=== PATIENT | female | born 1955 | race Caucasian/White ===

== ENCOUNTER → 2018-04-06 09:20 | Outpatient (CLI) | payer OTHER, SELFPAY ==
[2018-04-06 10:31] LABS: Add Manual Diff / Slide Review NO; Basophils Percent Auto 1.2 % (0-2); Eosinophils Percent Auto 2.7 % (2-4); Hematocrit 41.2 % (36-46); Hemoglobin 13.8 g/dL (12.0-16.0); Lymphocytes Percent Auto 34.4 % (25-40); Mean Corpuscular HGB Conc 33.5 % (30-36); Mean Corpuscular Hemoglobin 29.9 PG (26-34); Mean Corpuscular Volume 89.4 fL (80-100); Monocytes Percent Auto 11.7 % (3-14); Neutrophils Absolute Auto 1900 /uL (3000-5900); Platelet Count 189 X10^3/uL (150-400); Red Cell Distribution Width 14.3 % (11.6-14.8); White Blood Cell Count 3.8 X10^3/uL (4.5-11.0)
[2018-04-06 10:45] LABS: Hemoglobin A1C% w Est Avg Glu 5.7 % (4.0-6.0)
[2018-04-06 11:04] LABS: Alanine Aminotransferase 31 IU/L (9-52); Albumin Globulin Ratio 1.5 (1.0-2.8); Alkaline Phosphatase 63 U/L (38-126); Aspartate Aminotransferase 22 IU/L (14-36); BUN Creatinine Ratio 23.3 (6-22); Bilirubin Total 0.4 mg/dL (0.2-1.3); Blood Urea Nitrogen 14 mg/dL (7-17); Calcium 9.2 mg/dL (8.4-10.2); Carbon Dioxide 29 mmol/L (22-32); Chloride 103 mmol/L (98-107); Cholesterol 185 mg/dL (140-199); Estimated Glomerular Filt Rate > 60.0 mL/min (>60); Globulin 2.7 g/dL (1.7-4.1); Glucose 88 mg/dL (80-110); HDL Cholesterol 49 mg/dL (40-60); HEMOLYSIS < 15 (0-50); LDL Cholesterol Calculated 114 mg/dL (<100); Potassium 4.3 mmol/L (3.4-5.1); Sodium 141 mmol/L (137-145); Total Protein 6.7 g/dL (6.3-8.2); Triglycerides 109 mg/dL (35-150)
[2018-04-06 11:14] LABS: C-Reactive Protein Quant < 0.5 mg/dL (<1.0)
[2018-04-06 11:19] LABS: Free T3, Triiodothyronine Free 3.21 pg/mL (2.77-5.27); Free T4, Direct Thyroxine 1.47 ng/dL (0.78-2.19)
[2018-04-06 11:33] LABS: Thyroid Stimulating Hormone 2.44 uIU/mL (0.47-4.68)
== END ==
PROVIDERS: PCP Family Medicine; Visit Provider Family Medicine
DX: E78.00 Pure hypercholesterolemia, unspecified (principal); E03.9 Hypothyroidism, unspecified; E16.2 Hypoglycemia, unspecified; D72.819 Decreased white blood cell count, unspecified; M25.50 Pain in unspecified joint
CPT/HCPCS: 36415; 80053; 80061; 83036; 84439; 84443; 84481; 85025; 86140

== ENCOUNTER → 2018-04-13 11:36 | Outpatient (CLI) | payer OTHER, SELFPAY | PROVIDERS: PCP Family Medicine; Visit Provider Specialist | DX: R30.0 Dysuria (principal) | CPT/HCPCS: 87077; 87086; 87186 ==

== ENCOUNTER → 2018-04-17 10:19 | Outpatient (CLI) | payer OTHER, SELFPAY ==
--- NOTE | 2018-04-17 10:22 | DI.US.S_ITS ---
ULTRASOUND OF LEFT BREAST: 04/17/2018 CLINICAL: Palpable left breast lump and focal pain. one area of palpable multiple areas of pain. Comparison is made to exams dated: 04/17/2018 mammogram, 12/10/2015 ultrasound, and 12/10/2015 mammogram - . Ultrasound of the left breast was performed on the area of interest. Nino scale images of the real-time examination were reviewed. IMPRESSION: NEGATIVE There is no sonographic evidence of malignancy. There is no mammographic or sonographic abnormality seen in the left breast to correspond with the pain, however, clinical followup is recommended. A 1 year screening mammogram is recommended. This exam was interpreted at Station ID: [id number]. Electronically Signed By: Dianna fox/edd:04/17/2018 16:50:35 letter sent: Clinical Evaluation Ultrasound BI-RADS: 1 Negative
--- NOTE | 2018-04-17 10:22 | DI.MG.S_ITS ---
BILATERAL DIGITAL DIAGNOSTIC MAMMOGRAM 3D/2D: 04/17/2018 CLINICAL: Left breast pain. Comparison is made to exams dated: 12/10/2015 mammogram, 11/07/2014 mammogram, and 08/21/2013 mammogram - [facility]. The tissue of both breasts is extremely dense, which lowers the sensitivity of mammography. No significant masses, calcifications, or other findings are seen in either breast. There has been no significant interval change. IMPRESSION: INCOMPLETE: NEEDS ADDITIONAL IMAGING EVALUATION There is no mammographic abnormality seen in the left breast to correspond with the pain, however, ultrasound is recommended. This exam was interpreted at Station ID: [id number]. NOTE: For mammograms, a report in lay terms will be sent to the patient. Approximately 15% of breast malignancies will not be visualized mammographically. In the management of a palpable breast mass, a negative mammogram must not discourage biopsy of a clinically suspicious lesion. Electronically Signed By: Dianna fox/edd:04/17/2018 11:09:33 letter sent: Additional Imaging Needed ACR BI-RADS Category 0: Incomplete 3340F
== END ==
PROVIDERS: PCP Family Medicine; Visit Provider Specialist
DX: R92.8 Other abnormal and inconclusive findings on diagnostic imaging of breast (principal); N64.4 Mastodynia; N63.20 Unspecified lump in the left breast, unspecified quadrant
CPT/HCPCS: 76642; 77066; G0279

== ENCOUNTER → 2018-08-14 10:15 | Outpatient (CLI) | payer OTHER, SELFPAY ==
[2018-08-14 11:25] LABS: Magnesium 2.2 mg/dL (1.6-2.3)
[2018-08-14 11:57] LABS: Thyroid Stimulating Hormone 2.48 uIU/mL (0.47-4.68)
== END ==
PROVIDERS: Family Provider Family Medicine; PCP Family Medicine; Referring Provider Specialist; Visit Provider Internal Medicine Cardiovascular Disease
DX: R00.2 Palpitations (principal); I49.3 Ventricular premature depolarization; E03.9 Hypothyroidism, unspecified
CPT/HCPCS: 36415; 83735; 84443

== ENCOUNTER 2018-08-25 08:35 | Day surgery (SDC) | payer OTHER, SELFPAY ==
--- NOTE | 2018-08-25 | PATH_ITS ---
[facility] Accession Number: [id number] . 01 Material submitted: . POLYP AT 40CM . 02 Diagnosis: Colon Polyp at 40 cm: Colonic mucosa with no diagnostic abnormality, consistent with polypoid redundancy. Negative for serrated lesion, dysplasia or malignancy. Additional step sections examined. MRV/08/30/2018 . 02 Electronically signed: . Issac Howell MD, PhD, Pathologist NPI- [id number] . 01 Gross description: . Received one formalin-filled container labeled with the patient's name and labeled polyp at 40 cm. The specimen consists of two 0.1-0.3 cm portions of tissue, entirely submitted in one cassette. ([id number]) /FRR . 02 Pathologist provided ICD-10: K63.5 . 02 CPT . 305668 Performed at: 01 [facility] [address], [place], [place] [id number] MD Mariano Garcia MD Phone: [phone] Performed at: [address] [facility] [address] [place], [place] [id number] MD Yasmine Velarde MD Phone: [phone]
[2018-08-25] MEDS: SODIUM CHLORIDE 0.9% 1,000 ML 200 ML IV (08:49)
[2018-08-25 08:53] VITALS: BP 110/75; PULSE 73; RESP 15; TEMP 36; O2SAT 98; BMI 35.5
--- NOTE | 2018-08-25 10:20 | P.HP_ITS ---
History of Present Illness Date Patient Seen: 08/25/18 Time Patient Seen: 10:10 Chief complaint: [id number] COLONOSCOPY Narrative: Patient is a woman who had a colonoscopy about 4 years ago. Her aunt and father both had colon cancer. She has had polyps removed and is here for follow-up exam at the recommendation of her doctor. 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) Scarring of conjunctiva of left eye (Chronic 2013) Fibrocystic breast (Chronic 1999) Colon polyps (Resolved 2013) Hypothyroidism (Chronic 1999) Restless leg syndrome (Chronic 2012) Sleep apnea (Chronic 2012) Shoulder pain, left (Resolved 2015) Flat feet (Chronic 1956) Herpes simplex (Chronic 1997) Pure hypercholesterolemia (Chronic 11/23/16) Foot pain (Chronic 1956) Hematuria (Chronic) PVC (premature ventricular contraction) (Chronic 2013) Chicken pox (Resolved 1966) Chickenpox (Resolved 1966) History of multiple miscarriages (Resolved) Surgical History Status post endovenous radiofrequency ablation (RFA) of saphenous vein ( Resolved ~2015) Anesthesia (Resolved) History of orthopedic surgery (Resolved 1983) Family & Social History Family History: Reviewed 08/25/18 by Kee Pandey MD Social History: household members family lives independently Yes Tobacco & Substance use: Smoking Status Never smoker alcohol intake current Meds Home Medications Medication Instructions Recorded Confirmed Type CHOLECALCIFEROL (VITAMIN D3) 1,000 iu PO Q DAY #0 12/08/11 04/13/18 History (VITAMIN D3) MULTIVITAMIN 1 cap PO Q DAY #0 12/08/11 04/13/18 History [COQ 10] 100 mg #0 04/01/17 04/13/18 History hydrocodone 5 mg-acetaminophen 325 1 tab PO ONCE PRN #30 tab 02/16/18 04/13/18 Rx mg tablet nitrofurantoin 100 mg PO Q12H #10 cap 04/13/18 Rx monohydrate/macrocrystals 100 mg capsule levothyroxine 100 mcg tablet 100 mcg PO Q DAY #90 tab 06/16/18 Rx Allergies Allergy/AdvReac Type Severity Reaction Status Date / Time Sulfa (Sulfonamide Allergy Severe Hives Verified 08/25/18 08:41 Antibiotics) Penicillins [PENICILLINS] Allergy Unknown Verified 04/13/18 11:00 Review of Systems Review of Systems All systems reviewed & are unremarkable except as noted in HPI and below Exam Vital Signs (past 8 hours): - 08/25/18 08:53 Temperature 96.8 F L Pulse Rate 73 Respiratory Rate 15 Blood Pressure 110/75 Pulse Oximetry 98 Oxygen Delivery Method Room Air Narrative Exam Narrative: Co Operative no apparent distress. Lungs are clear to auscultation no rales or rhonchi heart regular rate and rhythm no murmur or gallop abdomen is protuberant soft nontender without mass. Alert and oriented x3. Assessment & Plan Plan: Assessment/Plan Narrative: Patient for a colonoscopy. I have discussed the procedure and the rationale with the patient including risks of bleeding, perforation which would necessitate a major operation, failure to find remove all lesions and the potential to tattoo. They appeared to understand and wished to proceed.
--- NOTE | 2018-08-25 10:22 | PM.PREOP ---
Pre-operative Note Interval Note Pre-op Check: Yes History & Physical exam performed today by Physician Changes: Yes H&P completed within 30 days and has changed as indicated here:: Patient is beta blocked. Drug was just started and she took it. ASA Class (for procedural sedation): II
--- NOTE | 2018-08-25 10:54 | PM.OP.ENDO ---
Operative Date/Time/Diagnoses Date of procedure: 08/25/18 Time of procedure: 10:54 Pre-op diagnosis: History of polyps and family history of colon cancer. Last exam 4 years ago. Post-op diagnosis: same (Polyp at 40 cm. Sigmoid diverticulosis. Internal hemorrhoids with scarring) Procedure & Clinicians Study performed: Colonoscopy with cold biopsy Same procedure as scheduled: Yes Indications: Screening Surgeon: Kee Pandey Procedure Notes SCOAP/Timeout: Perform Procedure in detail: The patient was placed in the left lateral decubitus position and underwent IV sedation directed by the surgeon consisting of fentanyl and Versed. Digital exam was unremarkable.. The scope was inserted and advanced through the rectum into the sigmoid, descending, transverse, and ascending colon. The patient was noted to have sigmoid diverticulosis. Pressure was applied and we made our way into the cecum. The cecum was reached identified by the ileocecal valve and the appendiceal opening. The scope was gradually brought out. A single Polyp was found at 40 cm from the anal verge. It was biopsied and appeared to be completely removed.. The scope ultimately was retroflexed in the rectum. The appearance was remarkable for scarring on internal hemorrhoids. There was no active disease.. The scope was removed and the patient tolerated the procedure well Scope withdrawal time: 10 min Sedation minutes: 30 Findings: diverticulosis (Sigmoid), internal hemorrhoids and polyp (40 cm from the anal verge) Specimen(s): other (Polyp) Complications: none Recommendations: Colonscopy in 5 years Follow up: as needed Disposition: PACU
[2018-08-25] MEDS: fentaNYL 250 MCG/5 ML INJ IV (10:55)
[2018-08-25] MEDS: MIDAZOLAM 5 MG/5 ML VIAL IV (10:55)
[2018-08-25 10:56] VITALS: BP 110/69; PULSE 72; RESP 15; TEMP 36.6; O2SAT 97
[2018-08-25 11:01] VITALS: BP 105/70; PULSE 71; RESP 15; O2SAT 96
[2018-08-25 11:06] VITALS: BP 129/78; PULSE 73; RESP 15; O2SAT 96
[2018-08-25 11:17] VITALS: BP 119/76; PULSE 71; RESP 15; TEMP 36.4; O2SAT 99
== END 2018-08-25 11:37 | disposition home or self-care (01) ==
PROVIDERS: Family Provider Family Medicine; PCP Family Medicine; Visit Provider Specialist
PROC: 0DJD8ZZ Inspection of Lower Intestinal Tract, Via Natural or Artificial Opening Endoscopic (ICD-10-PCS; CPT 45378; principal; 2018-08-25 09:45)
DX: Z86.010 Personal history of colon polyps (principal); K57.30 Diverticulosis of large intestine without perforation or abscess without bleeding; Z80.0 Family history of malignant neoplasm of digestive organs; K64.8 Other hemorrhoids; E03.9 Hypothyroidism, unspecified; G47.33 Obstructive sleep apnea (adult) (pediatric); E78.00 Pure hypercholesterolemia, unspecified; K63.5 Polyp of colon
CPT/HCPCS: 45380; 99152; 99153; J2250; J3010

== ENCOUNTER → 2018-08-28 12:44 | Outpatient (CLI) | payer OTHER, SELFPAY ==
--- NOTE | 2018-08-28 12:46 | DI.MRI.S_ITS ---
PROCEDURE: MR LUMBAR SPINE WO CON INDICATIONS: LOW BACK PAIN W R LOWER EXTREMITY TECHNIQUE: Noncontrast sagittal T1 spin echo and T2 fast echo, sagittal STIR, axial T1 and T2 fast spin echo through the lumbar spine. In cases with scoliosis, additional coronal T2 fast spin echo may be performed. COMPARISON: , MR, L-SPINE WITHOUT CONTRAST, 12/05/2008, 17:49. , MR, MR CERVICAL SPINE WO CON, 08/28/2018, 13:53. FINDINGS: Image quality: Diagnostic, with note made of motion artifact. Alignment and Curvature: There is minimal retrolisthesis seen at the L5-S1 level. Bone Marrow: Marrow is of normal overall signal. No acute vertebral body compression fractures. Spinal Cord: Conus medullaris terminates at the L2 level. Visualized cord demonstrates normal signal and size. Paraspinous Soft Tissues: No paravertebral masses. T12-L1: Normal appearance. L1-L2: Normal appearance. L2-L3: Normal appearance. L3-L4: Mild loss of disc height is seen. Loss of disc signal is seen. Moderate generalized disc bulge is seen. No significant neural foraminal narrowing is seen. Mild to moderate central canal narrowing is seen. These degenerative findings have progressed compared to the prior study. L4-L5: Moderate loss of disc height is seen. Loss of disc signal is seen. Moderate disc osteophyte complex is seen, which is eccentric the right. Mild bilateral neural foraminal narrowing is seen. Mild to moderate central canal narrowing is seen. These imaging findings have progressed compared to the prior study. L5-S1: At least moderate loss of disc height is seen. Moderate disc bulge is seen, with a central/left disc extrusion, as on series 6 image 38 and on series 3 image 10. There is an associated annular fissure present, as on series 3 image 9. Mild to moderate facet hypertrophy is seen. Mild bilateral neural foraminal narrowing is seen. Moderate central canal narrowing is seen, with mass effect upon the regional nerve roots, particularly the transiting left S1 nerve roots. These degenerative changes have slightly progressed compared to 2009. IMPRESSION: Lower lumbar spine degenerative changes are seen, which are most prominent at the L5-S1 level. The degenerative changes have progressed compared to 2008. Dictated by: Nicolás Richardson M.D. on 08/28/2018 at 13:32 Approved by: Nicolás Richardson M.D. on 08/28/2018 at 13:38
--- NOTE | 2018-08-28 13:56 | DI.MRI.S_ITS ---
PROCEDURE: MR CERVICAL SPINE WO CON INDICATIONS: NECK PAIN W BILATERAL UPPER EXTREMITY PARESTHESIAS TECHNIQUE: Noncontrast sagittal T1 spin echo and T2 fast spin echo, sagittal STIR, foraminal oblique sagittal T2 fast spin echo, and axial gradient echo or T2 fast spin echo through the cervical spine. COMPARISON: None. FINDINGS: Image quality: Mild motion is present limiting areas of fine detail evaluation. Alignment and Curvature: There is normal bony alignment. There is trace anterolisthesis of C3 on C4, C4 on C5, trace retrolisthesis of C5 on C6. Bone Marrow: Marrow demonstrates normal overall signal. There is increased T1 and T2 signal at T5 most suggestive of a hemangioma. Spinal Cord: Visualized spinal cord has normal size and signal. No cerebellar tonsillar herniation. Paraspinous Soft Tissues: No paravertebral masses. Prevertebral soft tissues are normal in thickness. Discs: Mild to moderate desiccation is present throughout the cervical spine most notable at C5-6 and C6-7. C2-C3: Minimal disc bulge without spinal stenosis or foraminal narrowing. Motion is present at this level. C3-C4: Mild disc bulge with minimal canal narrowing. Mild bilateral foraminal narrowing with uncovertebral hypertrophy. Motion is present at this level. C4-C5: Mild disc bulge with small superimposed posterior central protrusion. There is minimal canal narrowing. Mild bilateral foraminal narrowing with uncovertebral hypertrophy. Motion is present at this level. C5-C6: Mild disc bulge with mild/moderate spinal stenosis. Moderate left and mild to moderate right foraminal narrowing with uncovertebral hypertrophy. Motion is present at this level. C6-C7: Mild disc bulge with mild spinal stenosis. No foraminal narrowing. Uncovertebral hypertrophy is present. Motion is present at this level. C7-T1: No gross disc bulge, spinal stenosis or foraminal narrowing. Motion is present at the swallow. IMPRESSION: 1. Mildly limited exam secondary to multiple levels of motion artifact. 2. Multilevel disc bulges. 3. Spinal stenosis is present most notable at C5-6 secondary to disc bulge. 4. Multiple foraminal narrowing most notable at C5-6 secondary to uncovertebral arthropathy. Dictated by: Connie Joseph M.D. on 08/28/2018 at 15:30 Approved by: Connie Joseph M.D. on 08/28/2018 at 15:35
== END ==
PROVIDERS: Family Provider Family Medicine; PCP Family Medicine; Visit Provider Family Medicine
DX: M54.2 Cervicalgia (principal); M54.5 Low back pain; G89.29 Other chronic pain; M79.601 Pain in right arm; M79.602 Pain in left arm; R20.2 Paresthesia of skin
CPT/HCPCS: 72141; 72148

== ENCOUNTER → 2018-08-31 15:00 | Outpatient (CLI) | payer OTHER, SELFPAY ==
--- NOTE | 2018-08-31 | DI.ECHO.S_ITS ---
[facility]---------+ [facility] +---------+ : : [address] : : : : [id number] : : : : Phone: [phone]+ Echocardiogram Report + + :Name: ANGEL CHILEL Study Date: 08/31/2018 Height: 67 in : :[facility] Weight: 227 lb : : Gender: Female BSA: 2.1 m2 : :: 1955 Age: 63 yrs BP: 112/70 mmHg: :Reason For Study: Arrhythmia, PVCs : :Ordering Physician: Dwayne : :Terrenceiwpayal Performed By: Sharmaine Preston : :Referring: Santhosh Prescott : + + Interpretation Summary The patient was in atrial fibrillation with heart rates between 109-137 bpm during the exam. The left ventricle is normal in size. The ejection fraction is estimated to be 50-55%. The right ventricle is grossly normal size. The right ventricular systolic function is normal. No significant valvular pathology seen. The ascending aorta is mildly enlarged. Procedure: A two-dimensional transthoracic echocardiogram with color flow and Doppler was performed. The study quality was technically adequate. Comparison is made with the echocardiogram of 01-23-14. The patient was in atrial fibrillation with heart rates between 109-137 bpm during the exam. Left Ventricle: The left ventricle is normal in size. There is normal left ventricular wall thickness. There is no thrombus. The ejection fraction is estimated to be 50-55%. There is basal inferior wall hypokinesis. There is basal inferoseptal wall hypokinesis. Compared to the prior exam, the left ventricular wall motion has not changed. Diastolic function could not be accurately assessed due to atrial fibrillation. Right Ventricle: The right ventricle is grossly normal size. The right ventricular systolic function is normal. Atria: The left atrial size is normal. Both atria have remained unchanged in size since the prior echo exam. Right atrial size is normal. The interatrial septum is intact with no evidence for an atrial septal defect. Mitral Valve: The mitral valve is normal in structure and function. There is no mitral regurgitation noted. Aortic Valve: The aortic valve opens well. The aortic valve is trileaflet. There is no aortic valve stenosis. No aortic regurgitation is present. Tricuspid Valve: The tricuspid valve is normal in structure and function. There is trace tricuspid regurgitation. The right ventricular systolic pressure is estimated to be at least 20 mmHg based on an estimated right atrial pressure of 3 mm Hg. Pulmonic Valve: The pulmonic valve is not well seen, but is grossly normal. There is trace pulmonic regurgitation. Great Vessels: The aortic root is normal size. The ascending aorta is mildly enlarged. The aortic arch is normal in size. Pericardium/ Pleura There is no pericardial effusion. There is no pleural effusion. MMode/2D Measurements & Calculations LVIDd: 3.6 cm Ao root diam: 3.3 cm LVIDs: 2.4 cm Aortic Jxn: 2.7 cm FS: 33.2 % asc Aorta Diam: 3.8 cm IVSd: 1.0 cm Ao Arch Diam (Prox Trans): 2.8 cm LVPWd: 0.92 cm LV ocasio. diameter/BSA (cm/m^2): 1.7 LV sys. diameter/BSA (cm/m^2): 1.1 LA dimension: 3.6 cm RA long axis: 4.7 cm LA A2 area: 20.0 cm2 RA area: 16.8 cm2 LA A4 area: 15.2 cm2 RA vol: 50.7 ml LA length (vol): 4.6 cm RA : 23.8 ml/m2 LA vol: 56.4 ml IVC diam: 1.4 cm LA vol index: 26.4 ml/m2 RVD1 (basal): 2.8 cm Doppler Measurements & Calculations Ao V2 max: 110.3 cm/sec Med Peak E' Matthew: 8.9 cm/sec Ao V2 mean: 77.8 cm/sec Lat Peak E' Matthew: 12.9 cm/sec Ao max P.9 mmHg MV P1/2t: 37.0 msec Ao mean P.7 mmHg Ao V2 VTI: 19.4 cm TR max matthew: 204.8 cm/sec MV V2 mean: 56.3 cm/sec TR max P.8 mmHg MV mean P.5 mmHg PA V2 max: 64.9 cm/sec MV V2 VTI: 11.9 cm PA V2 mean: 40.8 cm/sec PA mean P.79 mmHg PA Accel Time: 0.12 sec MV P1/2t max matthew: 88.6 cm/sec MVA(P1/2t): 5.9 cm2 Reading Physician:TONIO
== END ==
PROVIDERS: PCP Family Medicine; Visit Provider Internal Medicine Cardiovascular Disease
DX: I49.3 Ventricular premature depolarization (principal)
CPT/HCPCS: 93306

== ENCOUNTER → 2021-01-09 12:08 | Outpatient (CLI) | payer OTHER, MEDICAID, SELFPAY ==
--- NOTE | 2021-01-09 | DI.US.S_ITS ---
PROCEDURE: US THYROID INDICATIONS: NODULE TECHNIQUE: Real-time scanning was performed of the thyroid gland, with image documentation. COMPARISON: [facility], US, THYROID, 09/02/2017, 10:17. FINDINGS: Right: Thyroid lobe measures 3.8 x 2.2 x 1.8 cm, and is diffusely heterogeneous in echotexture. Left: Thyroid lobe measures 3.8 x 1.8 x 1.0 cm, and is diffusely heterogeneous in echotexture. Isthmus: 3.0 mm thick. Nodule number: 1 Location: Left mid Size: 0.8 x 0.4 x 0.5 cm. Composition: Predominantly solid Echogenicity: Hypoechoic Shape: wider than tall. Margins: Smooth Echogenic foci: None Total points: None 4 ACR TI-RADS category: Moderately suspicious IMPRESSION: 1. Subcentimeter moderately suspicious left thyroid nodule. Given the small size, no additional follow-up is warranted. 2. Previously visualized right thyroid nodule is no longer visible. ACR TI-RADS definitions and recommendations: TI-RADS 1 (benign): 0 points. FNA not needed. TI-RADS 2 (not suspicious): 2 points. FNA not needed. TI-RADS 3 (mildly suspicious): 3 points. * FNA if 2.5 cm or larger, follow up if 1.5 cm or larger (at 1, 3, and 5 years). TI-RADS 4 (moderately suspicious): 4-6 points. * FNA if 1.5 cm or larger, follow up if 1 cm or larger (at 1, 2, 3, and 5 years). TI-RADS 5 (highly suspicious): 7 points or more. * FNA if 1 cm or larger, follow up if 0.5 cm or larger (every year for 5 years). Dictated by: Tanner SWAIN Interpreted: Hayden Galindo MD on 01/09/2021 at 13:11 Transcribed by: GRANT on 01/09/2021 at 13:13 Approved by: Hayden Galindo M.D. on 01/09/2021 at 14:44
--- NOTE | 2021-01-09 | DI.US.S_ITS ---
PROCEDURE: US CAROTID DOPPLER BI INDICATIONS: STENOSIS TECHNIQUE: Color and pulse Doppler interrogation was performed of both carotid systems, with image documentation and velocity measurements. COMPARISON: None. FINDINGS: Stenosis calculations are based on SRU (Society of Radiologists in Ultrasound) criteria. Right side: Brachial blood pressure: 121/79 mm Hg. Common carotid artery peak systolic velocity: 63 cm/sec. Internal carotid artery peak systolic velocity: 73 cm/sec. Internal carotid artery end diastolic velocity: 19 cm/sec. External carotid artery peak systolic velocity: 64 cm/sec. ICA/CCA peak systolic ratio: 0.9 Nino scale imaging description: Mild scattered plaque. Percent internal carotid artery stenosis: Less than 50%. Vertebral artery: Flow direction is antegrade. Left side: Brachial blood pressure: 79 mm Hg. Common carotid artery peak systolic velocity: 51 cm/sec. Internal carotid artery peak systolic velocity: 21 cm/sec. Internal carotid artery end diastolic velocity: 60 cm/sec. External carotid artery peak systolic velocity: 60 cm/sec. ICA/CCA peak systolic ratio: 0.9 Nino scale imaging description: Minimal plaque. Percent internal carotid artery stenosis: Less than 50% . Vertebral artery: Flow direction is antegrade. IMPRESSION: Less than 50% bilateral internal carotid artery stenosis. Dictated by: Tanner Baker Ugo Interpreted: Hayden Galindo MD on 01/09/2021 at 14:17 Transcribed by: GRANT on 01/09/2021 at 14:30 Approved by: Hayden Galindo M.D. on 01/09/2021 at 16:12
== END ==
PROVIDERS: PCP Family Medicine; Referring Provider Family Medicine; Visit Provider Family Medicine
DX: E04.1 Nontoxic single thyroid nodule (principal)
CPT/HCPCS: 76536; 93880

== ENCOUNTER → 2021-02-27 13:23 | Outpatient (CLI) | payer OTHER, MEDICAID, SELFPAY ==
[2021-02-27 13:58] LABS: BUN Creatinine Ratio 27.5 (6-22); Blood Urea Nitrogen 19 mg/dL (7-17); Calcium 9.3 mg/dL (8.4-10.2); Carbon Dioxide 24 mmol/L (22-32); Chloride 110 mmol/L (98-107); Creatine Kinase 68 U/L (30-135); Estimated Glomerular Filt Rate > 60.0 mL/min (>60); Glucose 102 mg/dL (80-110); HEMOLYSIS < 15 (0-50); Potassium 4.3 mmol/L (3.4-5.1); Sodium 140 mmol/L (137-145)
[2021-02-27 14:09] LABS: Troponin I < 0.012 ng/mL (0.01-0.034)
== END ==
PROVIDERS: PCP Family Medicine; Referring Provider Internal Medicine Cardiovascular Disease; Visit Provider Internal Medicine Cardiovascular Disease
DX: I42.9 Cardiomyopathy, unspecified (principal)
CPT/HCPCS: 36415; 80048; 82550; 84484

== ENCOUNTER → 2021-03-16 07:51 | Outpatient (CLI) | payer OTHER, MEDICAID, SELFPAY ==
[2021-03-16 09:57] LABS: BUN Creatinine Ratio 29.2 (6-22); Blood Urea Nitrogen 19 mg/dL (7-17); Calcium 9.2 mg/dL (8.4-10.2); Carbon Dioxide 28 mmol/L (22-32); Chloride 107 mmol/L (98-107); Estimated Glomerular Filt Rate > 60.0 mL/min (>60); Glucose 134 mg/dL (80-110); HEMOLYSIS < 15 (0-50); Potassium 4.1 mmol/L (3.4-5.1); Sodium 141 mmol/L (137-145)
== END ==
PROVIDERS: PCP Family Medicine; Referring Provider Internal Medicine Cardiovascular Disease; Visit Provider Internal Medicine Cardiovascular Disease
DX: I48.19 Other persistent atrial fibrillation (principal); I51.9 Heart disease, unspecified
CPT/HCPCS: 36415; 80048

== ENCOUNTER 2022-07-26 10:15 | Outpatient (RCR) | payer MEDICARE, OTHER, MEDICAID, SELFPAY ==
--- NOTE | 2021-10-07 15:11 | PT.OPPOC ---
Physical, Occupational & Speech Therapy At [facility] Current Diagnoses Malignant neoplasm of unspecified site of unspecified female breast (10/07/21) Lumbago with sciatica, unspecified side (10/07/21) Difficulty in walking, not elsewhere classified (10/07/21) Abnormal posture (10/07/21) Estrogen receptor positive status [ER+] (10/07/21) Visit Care Team Role Provider Type Santhosh Prescott MD Family Provider Non-Staff Primary Care Provider Specialty: Family Practice Address: [address] [place] [address], [address], [place], [address] Email: Corky Forbes MD Attending Provider Non-Staff Referring Provider Specialty: Medical Address: [address] [place] [address], [id number] Email: Plan Of Care PT-OP-T Assessment and Plan Start: 10/06/21 08:39 Freq: Status: Active Protocol: Document 10/07/21 11:15 AW (Rec: 10/07/21 16:58 AW [id number]) Physical Therapy Assessment Rehab Potential Rehabilitation Potential Fair Evaluation Complexity Number of Personal Factors/Comorbidities 3 or More Number of Body Systems Impaired 3 Clinical Presentation at Evaluation Evolving Impairments Impairments Activity Tolerance,Balance, Gait,Pain,Posture,ROM, Sensation,Soft Tissue Mobility ,Strength Goals Three Impairment strength Short Term Goal (STG) Pt will improve bilateral hip strength to 4/5 all planes for improved stability in gait STG Duration 6 weeks - 11/18/21 Fern Picker Goal (LTG) Pt will complete 10 reps on 30 -second sit to stand test without use of upper extremities as a measure of improved BLE strength LTG Duration 12 weeks - 12/30/21 Two Impairment standing and walking tolerance Short Term Goal (STG) Pt will stand 20 minutes without increase in baseline pain to improve her ability to cook a simple meal for herself. STG Duration 6 weeks - 11/18/21 Fern Picker Goal (LTG) Pt will walk for 30 minutes without increase in baseline pain to improve her ability to participate in a self- directed walking program. LTG Duration 12 weeks - 12/30/21 One Impairment lacks HEP Short Term Goal (STG) Pt will be instructed in HEP for pain management, ROM, and core stabilization to support therapy services provided in clinic. STG Duration 6 weeks - 11/18/21 Fern Picker Goal (LTG) Pt will be independent with HEP for pain management, strength, and balance to sustain gains made in therapy. LTG Duration 12 weeks - 12/30/21 Assessment Summary Assessment Matilda attends physical therapy with complaints of low back pain radiating to bilateral lower extremities. She also complains of bilateral shoulder pain and stiffness. 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 Pt was diagnosed with left breast cancer last year and was treated with lumpectomy, axillary lymph node dissection , and adjuvant radiation. Pt presents with signs and symptoms consistent with lumbar stenosis. Oncology treatment is likely contributory to reduced shoulder ROM. Pt is expected to benefit from skilled physical therapy to address shoulder pain and ROM limitations, back and leg pain , hip mobility, gait and balance deficits, and lower extremity strength to improve. Pt has fair rehab potential to improve her ability to participate in self-directed exercise for health and long- term fitness. Physical Therapy Plan Frequency and Duration Frequency of Treatment 2x/Week Duration of Treatment 12 weeks Plan of Care Start Date 10/07/21 Plan of Care End Date 12/30/21 Therapeutic Interventions Therapeutic Interventions Aquatic Therapy,Balance Training,Gait Training,Home Exercise Program,Joint Mobilizations,Lymphedema Management,Manual Therapy, Neuromuscular Re-education, Self-Care/Home Management,Soft Tissue Mobilization,Taping, Therapeutic Activities, Therapeutic Exercises Modalities Cold Pack/Ice Massage,Electric Stimulation,Hot Packs Next Visit Focus/Plan Next Note Type Treatment Note Next Visit Plan Inquire interest in aquatic therapy. Assess shoulder strength, gait speed, 2 minute walk test. Measure UE limb girth. Initiate scar mobilization for lumpectomy scar. Update POC with any new goals based on continued assessment. Plan of Care Dates Plan of Care Start Date 10/07/21 Plan of Care End Date 12/30/21 Electronically Signed by: Arlene Esposito PT 10/08/21 [id number] Please Sign and Return: I have reviewed this Plan of Care and certify that the skilled therapy services above are required to meet the patient?s needs. Physician Signature Date Printed Name and Credentials Clinical Instructor Signature Printed Name and Credentials
--- NOTE | 2021-10-07 15:11 | PT.OIE ---
Current Diagnoses Malignant neoplasm of unspecified site of unspecified female breast (10/07/21) Lumbago with sciatica, unspecified side (10/07/21) Difficulty in walking, not elsewhere classified (10/07/21) Abnormal posture (10/07/21) Estrogen receptor positive status [ER+] (10/07/21) Past Medical History (Last Reviewed 07/20/21 @ 16:03 by Kenny Light MD) Chicken pox (1966) Chickenpox (1966) Colon polyps (2013) Fibrocystic breast (1999) Flat feet (1956) Foot pain (1956) Hematuria Herpes simplex (1997) History of multiple miscarriages History of orthopedic surgery (1983) Hypothyroidism (1999) Lichen sclerosus of female genitalia Low back pain radiating down leg Neck pain, chronic Paresthesia and pain of both upper extremities Pure hypercholesterolemia (11/23/16) PVC (premature ventricular contraction) (2013) Restless leg syndrome (2012) Scarring of conjunctiva of left eye (2013) Shoulder pain, left (2015) Sleep apnea (2012) Status post endovenous radiofrequency ablation (RFA) of saphenous vein (~2015) Varicose veins of left lower extremity (~2016) Past Surgical History (Last Reviewed 07/20/21 @ 16:03 by Kenny Light MD) Anesthesia History of orthopedic surgery (1983) Status post endovenous radiofrequency ablation (RFA) of saphenous vein (~2015) Visit Care Team Role Provider Type Santhosh Prescott MD Family Provider Non-Staff Primary Care Provider Specialty: Family Practice Address: [address] [place] [address], [facility] [address], [place], [address] Email: Corky Forbes MD Attending Provider Non-Staff Referring Provider Specialty: Medical Address: [address] [place] [address], [address] Email: Physical Therapy Initial Evaluation PT-OP-A Visit Information Start: 10/06/21 08:39 Freq: Status: Active Protocol: Document 10/07/21 11:15 AW (Rec: 10/06/21 08:45 AW [id number]) Out-Patient Physical Therapy Visit Information Visit Information Visit Type Initial Evaluation Visit Start Time 10:30 Visit Stop Time 11:15 Total Visit Minutes 45 Visit Number 1 Number of SUPERVISOR DEHYDROGENATION Visits 0 Evaluation Information Evaluation Date 10/07/21 Precautions Precautions osteopenia PT-OP-B Current Condition Start: 10/06/21 08:39 Freq: Status: Active Protocol: Document 10/07/21 11:15 AW (Rec: 10/06/21 08:45 AW [id number]) Current Condition History of Current Condition Onset Date chronic - at least 3 years for back and at least 3 months for shoulders Current Complaints back and leg pain; painful and tight shoulders History of Current Condition 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 Her mother had very limited mobility in the last three years and Matilda was assisting with lots of heavy transfers. She believes her back pain started around that time. She wore a back brace for support at times but isn't sure it helped much. She now has pain that starts in her low back and radiates into buttock and lateral thigh and lateral calf . It is worse on the right but present bilaterally. She has numbness in similar distribution. Pt takes [place] ~ every other day when pain gets very bad. Smoking marijuana helps distract from her pain. 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 She has completed adjuvant radiation therapy as of August. She will start anastrozole soon and is concerned about reductions in estrogen and estradiol. Since cancer treatment, she has grown aware of tight and painful shoulders bilaterally (left worse than right) and reports painful lumps on the left side under breast tissue. Scar tissue seems tight and restricts movement. Recent nuc med bone scan was negative for metastasis. Matilda lives alone since the of her mother. She depends on her logan. She is considering a cancer support group and has good friends. Prior Treatments and Tests - Chiropractic - Nuc med bone scan September 2021 with no evidence of metastasis. - Lumbar MRI 2018: Lower lumbar spine degenerative changes are seen, which are most prominent at the L5-S1 level. - Cervical MRI 2018: Multilevel disc bulges. Spinal stenosis is present most notable at C5-6 secondary to disc bulge. Multiple foraminal narrowing most notable at C5- 6 secondary to uncovertebral arthropathy. Treatment Goals Patient/Caregiver Goals More walking, more exercise, possibly join a gym. Has exercise bike and some weights at home. Lift without pain. Personal Factors Other Personal Factors That May Effect a fib, BMI 37, chronic low Therapy/Recovery back pain PT-OP-C Subjective Start: 10/06/21 08:39 Freq: Status: Active Protocol: Document 10/07/21 11:15 AW (Rec: 10/07/21 13:41 AW [id number]) OP-PT Subjective Patient Comments Patient Comments I'm ready to do something for myself. OP-PT Pain Assessment Pain Assessment Grid Paper Pain Assessment Grid Completed Yes: scanned to EMR PT-OP-D Balance Start: 10/06/21 08:39 Freq: Status: Active Protocol: Document 10/07/21 11:15 AW (Rec: 10/07/21 13:41 AW [id number]) Balance Tests Single Limb Standing Single Limb- Right 3 sec with fingertip support on wall Single Limb- Left 5 sec with fingertip support on wall PT-OP-F Manual Assessment Start: 10/06/21 08:39 Freq: Status: Active Protocol: Document 10/07/21 11:15 AW (Rec: 10/07/21 13:44 AW [id number]) Manual Assessments Soft Tissue Assessment Soft Tissue Mobility Assessment Severely limited internal rotation in bilateral hips. TTP at bilateral greater trochanters, deep external rotators, and gluteal region PT-OP-G Mobility & Gait Start: 10/06/21 08:39 Freq: Status: Active Protocol: Document 10/07/21 11:15 AW (Rec: 10/07/21 16:23 AW [id number]) OP Mobility Evaluation Bed Mobility Rolling Difficult and painful rolling Supine to and from Sit Increased time and cues needed for log roll Transfers Sit to Stand Definite need for use of hands OP Gait Assessment Comments Gait Comments Pt ambulates independently with lateral lean in ipsilateral stance, wide base of support, decreased RLE stance time, reduced heel strike and weak toe off. Generally unsteady. PT-OP-H Neuro Start: 10/06/21 08:39 Freq: Status: Active Protocol: Document 10/07/21 11:15 AW (Rec: 10/07/21 16:23 AW [id number]) Sensation Evaluation Gross Sensation Gross Sensation Left LE Impaired,Right LE Impaired Comments Summary Comments Pain and numbness in buttocks and posterolateral thigh, lateral calf. Right more significantly affected than left. Deep Tendon Reflex & Clonus Assessment Deep Tendon Reflex Bicep Deep Tendon Reflex 2+ Normal Achilles Deep Tendon Reflex 1+ Diminished Patellar Deep Tendon Reflex 2+ Normal PT-OP-J Posture/Palpation/Skin Start: 10/06/21 08:39 Freq: Status: Active Protocol: Document 10/07/21 11:15 AW (Rec: 10/07/21 16:23 AW [id number]) Posture Evaluation Comments Posture Comments Flat lumbar spine with hinge at L4-5. Extension severely limited. Decreased weightbearing RLE in static stance and in gait Skin Assessment Incisional Assessment Incision Appearance/Comments Left lumpectomy scar with significantly limited mobility . PT-OP-K Range of Motion Start: 10/06/21 08:39 Freq: Status: Active Protocol: Document 10/07/21 11:15 AW (Rec: 10/08/21 15:10 AW [id number]) Cervical Spine Range of Motion Cervical Spine Active Testing Position Sitting Flexion 45 Extension 25 Rotation Left 40 Rotation Right 40 Lateral Flexion Left 20 Lateral Flexion Right 15 ROM Limitations Soft Tissue Tightness,Pain Comments Lateral flexion limited by increased tone in upper traps bilaterally Lumbar Spine Range of Motion Lumbar Spine Active Testing Position Standing Comments Pt is able to bend forward with fingertips to within 8 from floor. Positive Danica sign. Lateral flexion severely limited and pt can only slide fingertips ~3 inches toward lateral knee. Shoulder Goniometric Range of Motion Shoulder Right Active Testing Position Sitting Flexion 140 Abduction 135 External Rotation at 0 degrees Abduction 50 Internal Rotation Behind Back (text) T10 Left Active Testing Position Sitting Flexion 140 Abduction 137 External Rotation at 0 degrees Abduction 55 Internal Rotation Behind Back (text) T12 Hip Goniometric Range of Motion Hip bilat Testing Position Supine Comments Internal rotation severely limited and end-range PROM does reproduce pain PT-OP-L Special Tests Start: 10/06/21 08:39 Freq: Status: Active Protocol: Document 10/07/21 11:15 AW (Rec: 10/07/21 16:23 AW [id number]) Special Tests Lumbar Spine Special Tests Slump Test Results positive for pain, numbness, tingling RLE 2nd most provocative position PT-OP-M Strength Start: 10/06/21 08:39 Freq: Status: Active Protocol: Document 10/07/21 11:15 AW (Rec: 10/07/21 16:23 AW [id number]) Hip Strength Hip Manual Muscle Testing Right Flexion (L2) 4- Good- Extension (S1) 3 Fair Abduction 3 Fair Left Flexion (L2) 4 Good Extension (S1) 3+ Fair+ Abduction 3+ Fair+ Knee Strength Knee Manual Muscle Testing bilat Flexion (S2) 4 Good Extension (L3) 4 Good Ankle/Foot Strength Ankle and Foot Manual Muscle Testing bilat Dorsiflexion (L4) 4 Good Comments Pt unable to complete two single leg heel lifts with good elevation. Toe Strength Toe Manual Muscle Testing Great Toe Extension 4+ Good+ PT-OP-Q Treatments Start: 10/06/21 08:39 Freq: Status: Active Protocol: Document 10/07/21 11:15 AW (Rec: 10/07/21 16:58 AW [id number]) Self-Care/Home Management Treatment Education Patient Education Pain Management,Posture Other Education Educated pt on assessment results and proposed plan of care to focus on hip mobility, core stabilization, postural correction, and management of chronic pain. Also plan to continue assessment of shoulder at next visit and take baseline measurements to rule out lymphedema. PT-OP-T Assessment and Plan Start: 10/06/21 08:39 Freq: Status: Active Protocol: Document 10/07/21 11:15 AW (Rec: 10/07/21 16:58 AW [id number]) Physical Therapy Assessment Rehab Potential Rehabilitation Potential Fair Evaluation Complexity Number of Personal Factors/Comorbidities 3 or More Number of Body Systems Impaired 3 Clinical Presentation at Evaluation Evolving Impairments Impairments Activity Tolerance,Balance, Gait,Pain,Posture,ROM, Sensation,Soft Tissue Mobility ,Strength Goals Three Impairment strength Short Term Goal (STG) Pt will improve bilateral hip strength to 4/5 all planes for improved stability in gait STG Duration 6 weeks - 11/18/21 Traffic Analyst Goal (LTG) Pt will complete 10 reps on 30 -second sit to stand test without use of upper extremities as a measure of improved BLE strength LTG Duration 12 weeks - 12/30/21 Two Impairment standing and walking tolerance Short Term Goal (STG) Pt will stand 20 minutes without increase in baseline pain to improve her ability to cook a simple meal for herself. STG Duration 6 weeks - 11/18/21 Traffic Analyst Goal (LTG) Pt will walk for 30 minutes without increase in baseline pain to improve her ability to participate in a self- directed walking program. LTG Duration 12 weeks - 12/30/21 One Impairment lacks HEP Short Term Goal (STG) Pt will be instructed in HEP for pain management, ROM, and core stabilization to support therapy services provided in clinic. STG Duration 6 weeks - 11/18/21 Prison Goal (LTG) Pt will be independent with HEP for pain management, strength, and balance to sustain gains made in therapy. LTG Duration 12 weeks - 12/30/21 Assessment Summary Assessment Matilda attends physical therapy with complaints of low back pain radiating to bilateral lower extremities. She also complains of bilateral shoulder pain and stiffness. 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 Pt was diagnosed with left breast cancer last year and was treated with lumpectomy, axillary lymph node dissection , and adjuvant radiation. Pt presents with signs and symptoms consistent with lumbar stenosis. Oncology treatment is likely contributory to reduced shoulder ROM. Pt is expected to benefit from skilled physical therapy to address shoulder pain and ROM limitations, back and leg pain , hip mobility, gait and balance deficits, and lower extremity strength to improve. Pt has fair rehab potential to improve her ability to participate in self-directed exercise for health and long- term fitness. Physical Therapy Plan Frequency and Duration Frequency of Treatment 2x/Week Duration of Treatment 12 weeks Plan of Care Start Date 10/07/21 Plan of Care End Date 12/30/21 Therapeutic Interventions Therapeutic Interventions Aquatic Therapy,Balance Training,Gait Training,Home Exercise Program,Joint Mobilizations,Lymphedema Management,Manual Therapy, Neuromuscular Re-education, Self-Care/Home Management,Soft Tissue Mobilization,Taping, Therapeutic Activities, Therapeutic Exercises Modalities Cold Pack/Ice Massage,Electric Stimulation,Hot Packs Next Visit Focus/Plan Next Note Type Treatment Note Next Visit Plan Inquire interest in aquatic therapy. Assess shoulder strength, gait speed, 2 minute walk test. Measure UE limb girth. Initiate scar mobilization for lumpectomy scar. Update POC with any new goals based on continued assessment.
--- NOTE | 2021-10-14 15:03 | PT.OTN ---
Current Diagnoses Malignant neoplasm of unspecified site of unspecified female breast (10/14/21) Lumbago with sciatica, unspecified side (10/14/21) Difficulty in walking, not elsewhere classified (10/14/21) Abnormal posture (10/14/21) Estrogen receptor positive status [ER+] (10/14/21) Physical Therapy Treatment Note PT-OP-A Visit Information Start: 10/06/21 08:39 Freq: Status: Active Protocol: Document 10/14/21 13:00 AW (Rec: 10/14/21 13:53 AW [id number]) Out-Patient Physical Therapy Visit Information Visit Information Visit Type Treatment Note Visit Start Time 13:00 Visit Stop Time 14:00 Total Visit Minutes 60 Visit Number 2 Number of CROCHETER Visits 0 Evaluation Information Evaluation Date 10/07/21 Precautions Precautions osteopenia PT-OP-B Current Condition Start: 10/06/21 08:39 Freq: Status: Active Protocol: Document 10/07/21 11:15 AW (Rec: 10/06/21 08:45 AW [id number]) Current Condition History of Current Condition Onset Date chronic - at least 3 years for back and at least 3 months for shoulders Current Complaints back and leg pain; painful and tight shoulders History of Current Condition 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 Her mother had very limited mobility in the last three years and Matilda was assisting with lots of heavy transfers. She believes her back pain started around that time. She wore a back brace for support at times but isn't sure it helped much. She now has pain that starts in her low back and radiates into buttock and lateral thigh and lateral calf . It is worse on the right but present bilaterally. She has numbness in similar distribution. Pt takes [place] ~ every other day when pain gets very bad. Smoking marijuana helps distract from her pain. 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 She has completed adjuvant radiation therapy as of August. She will start anastrozole soon and is concerned about reductions in estrogen and estradiol. Since cancer treatment, she has grown aware of tight and painful shoulders bilaterally (left worse than right) and reports painful lumps on the left side under breast tissue. Scar tissue seems tight and restricts movement. Recent nuc med bone scan was negative for metastasis. Matilda lives alone since the of her mother. She depends on her logan. She is considering a cancer support group and has good friends. Prior Treatments and Tests - Chiropractic - Nuc med bone scan September 2021 with no evidence of metastasis. - Lumbar MRI 2018: Lower lumbar spine degenerative changes are seen, which are most prominent at the L5-S1 level. - Cervical MRI 2018: Multilevel disc bulges. Spinal stenosis is present most notable at C5-6 secondary to disc bulge. Multiple foraminal narrowing most notable at C5- 6 secondary to uncovertebral arthropathy. Treatment Goals Patient/Caregiver Goals More walking, more exercise, possibly join a gym. Has exercise bike and some weights at home. Lift without pain. Personal Factors Other Personal Factors That May Effect a fib, BMI 37, chronic low Therapy/Recovery back pain PT-OP-C Subjective Start: 10/06/21 08:39 Freq: Status: Active Protocol: Document 10/14/21 13:00 AW (Rec: 10/14/21 13:53 AW [id number]) OP-PT Subjective Patient Comments Patient Comments My back is really achey today Patient Reported Progress Same PT-OP-D Balance Start: 10/06/21 08:39 Freq: Status: Active Protocol: Document 10/07/21 11:15 AW (Rec: 10/07/21 13:41 AW [id number]) Balance Tests Single Limb Standing Single Limb- Right 3 sec with fingertip support on wall Single Limb- Left 5 sec with fingertip support on wall PT-OP-F Manual Assessment Start: 10/06/21 08:39 Freq: Status: Active Protocol: Document 10/07/21 11:15 AW (Rec: 10/07/21 13:44 AW [id number]) Manual Assessments Soft Tissue Assessment Soft Tissue Mobility Assessment Severely limited internal rotation in bilateral hips. TTP at bilateral greater trochanters, deep external rotators, and gluteal region PT-OP-G Mobility & Gait Start: 10/06/21 08:39 Freq: Status: Active Protocol: Document 10/07/21 11:15 AW (Rec: 10/07/21 16:23 AW [id number]) OP Mobility Evaluation Bed Mobility Rolling Difficult and painful rolling Supine to and from Sit Increased time and cues needed for log roll Transfers Sit to Stand Definite need for use of hands OP Gait Assessment Comments Gait Comments Pt ambulates independently with lateral lean in ipsilateral stance, wide base of support, decreased RLE stance time, reduced heel strike and weak toe off. Generally unsteady. PT-OP-H Neuro Start: 10/06/21 08:39 Freq: Status: Active Protocol: Document 10/07/21 11:15 AW (Rec: 10/07/21 16:23 AW [id number]) Sensation Evaluation Gross Sensation Gross Sensation Left LE Impaired,Right LE Impaired Comments Summary Comments Pain and numbness in buttocks and posterolateral thigh, lateral calf. Right more significantly affected than left. Deep Tendon Reflex & Clonus Assessment Deep Tendon Reflex Bicep Deep Tendon Reflex 2+ Normal Achilles Deep Tendon Reflex 1+ Diminished Patellar Deep Tendon Reflex 2+ Normal PT-OP-J Posture/Palpation/Skin Start: 10/06/21 08:39 Freq: Status: Active Protocol: Document 10/07/21 11:15 AW (Rec: 10/07/21 16:23 AW [id number]) Posture Evaluation Comments Posture Comments Flat lumbar spine with hinge at L4-5. Extension severely limited. Decreased weightbearing RLE in static stance and in gait Skin Assessment Incisional Assessment Incision Appearance/Comments Left lumpectomy scar with significantly limited mobility . PT-OP-K Range of Motion Start: 10/06/21 08:39 Freq: Status: Active Protocol: Document 10/07/21 11:15 AW (Rec: 10/08/21 15:10 AW [id number]) Cervical Spine Range of Motion Cervical Spine Active Testing Position Sitting Flexion 45 Extension 25 Rotation Left 40 Rotation Right 40 Lateral Flexion Left 20 Lateral Flexion Right 15 ROM Limitations Soft Tissue Tightness,Pain Comments Lateral flexion limited by increased tone in upper traps bilaterally Lumbar Spine Range of Motion Lumbar Spine Active Testing Position Standing Comments Pt is able to bend forward with fingertips to within 8 from floor. Positive [place] sign. Lateral flexion severely limited and pt can only slide fingertips ~3 inches toward lateral knee. Shoulder Goniometric Range of Motion Shoulder Right Active Testing Position Sitting Flexion 140 Abduction 135 External Rotation at 0 degrees Abduction 50 Internal Rotation Behind Back (text) T10 Left Active Testing Position Sitting Flexion 140 Abduction 137 External Rotation at 0 degrees Abduction 55 Internal Rotation Behind Back (text) T12 Hip Goniometric Range of Motion Hip bilat Testing Position Supine Comments Internal rotation severely limited and end-range PROM does reproduce pain PT-OP-L Special Tests Start: 10/06/21 08:39 Freq: Status: Active Protocol: Document 10/07/21 11:15 AW (Rec: 10/07/21 16:23 AW [id number]) Special Tests Lumbar Spine Special Tests Slump Test Results positive for pain, numbness, tingling RLE 2nd most provocative position PT-OP-M Strength Start: 10/06/21 08:39 Freq: Status: Active Protocol: Document 10/07/21 11:15 AW (Rec: 10/07/21 16:23 AW [id number]) Hip Strength Hip Manual Muscle Testing Right Flexion (L2) 4- Good- Extension (S1) 3 Fair Abduction 3 Fair Left Flexion (L2) 4 Good Extension (S1) 3+ Fair+ Abduction 3+ Fair+ Knee Strength Knee Manual Muscle Testing bilat Flexion (S2) 4 Good Extension (L3) 4 Good Ankle/Foot Strength Ankle and Foot Manual Muscle Testing bilat Dorsiflexion (L4) 4 Good Comments Pt unable to complete two single leg heel lifts with good elevation. Toe Strength Toe Manual Muscle Testing Great Toe Extension 4+ Good+ PT-OP-Q Treatments Start: 10/06/21 08:39 Freq: Status: Active Protocol: Document 10/14/21 13:00 AW (Rec: 10/14/21 13:53 AW [id number]) Therapeutic Exercises Supine Exercises sciatic nerve glide Supine Exercise Name sciatic nerve glide Side bilateral Comments HS stretch with AP - clinic only; review next visit HS stretch Supine Exercise Name HS stretch/SKTC Side bilateral Equipment Used towel behind thigh; knee bent Reps/Minutes 30SH x 4 Comments HEP Gait Training Gait Activity 6MWT Description 6MWT Device Used none Level of Assistance IND Surface indoors, carpet and tile Distance/Duration 1200 feet/6 minutes Treatment Focus assessment Comments No rest. Increased antalgia after ~4 minutes. Average gait speed 1.02 m/s. Loss of 3 seconds last lap compared with first. Manual Therapy Treatment Soft Tissue Mobilization right hip Body Location glute med, external rotators Mobilization Type Strumming,Sustained Pressure, Trigger Point Release Intensity/Depth Superficial Body Position Sidelying Self-Care/Home Management Treatment Education Patient Education Home Exercise Program Other Education Gave supine HS stretch for HEP today. PT-OP-R Modalities Start: 10/06/21 08:39 Freq: Status: Active Protocol: Document 10/14/21 13:00 AW (Rec: 10/14/21 14:37 AW [id number]) Hot Pack/Cold Pack Treatment Hot Pack Location lumbar Patient Position Hooklying Treatment Duration (minutes) 15 Patient Tolerance Good PT-OP-T Assessment and Plan Start: 10/06/21 08:39 Freq: Status: Active Protocol: Document 10/14/21 13:00 AW (Rec: 10/14/21 13:53 AW [id number]) Physical Therapy Assessment Goals Three Impairment strength Short Term Goal (STG) Pt will improve bilateral hip strength to 4/5 all planes for improved stability in gait STG Duration 6 weeks - 11/18/21 [facility] Goal (LTG) Pt will complete 10 reps on 30 -second sit to stand test without use of upper extremities as a measure of improved BLE strength LTG Duration 12 weeks - 12/30/21 Two Impairment standing and walking tolerance Short Term Goal (STG) Pt will stand 20 minutes without increase in baseline pain to improve her ability to cook a simple meal for herself. STG Duration 6 weeks - 11/18/21 [facility] Goal (LTG) Pt will walk for 30 minutes without increase in baseline pain to improve her ability to participate in a self- directed walking program. LTG Duration 12 weeks - 12/30/21 One Impairment lacks HEP Short Term Goal (STG) Pt will be instructed in HEP for pain management, ROM, and core stabilization to support therapy services provided in clinic. STG Duration 6 weeks - 11/18/21 Chief Inspector Goal (LTG) Pt will be independent with HEP for pain management, strength, and balance to sustain gains made in therapy. LTG Duration 12 weeks - 12/30/21 Assessment Summary Assessment Continued assessment with Matilda today to address shoulder strength, endurance, and gait speed. She is globally weak in her BUE. Average gait speed on 6 Minute Walk Test was 1.02 m/s and split times did increase 1-2 seconds each lap. Pt had achey low back and glute pain starting around the 4th minute and antalgia did increase. Took circumferential measurements BUE and all measurements are within one cm of the contralateral side - no evidence of lymphedema. Pt responded well to hip mobility and heat today. Pt expressed interested in aquatic therapy. Will attempt to schedule Physical Therapy Plan Frequency and Duration Frequency of Treatment 2x/Week Duration of Treatment 12 weeks Plan of Care Start Date 10/07/21 Plan of Care End Date 12/30/21 Therapeutic Interventions Therapeutic Interventions Aquatic Therapy,Balance Training,Gait Training,Home Exercise Program,Joint Mobilizations,Lymphedema Management,Manual Therapy, Neuromuscular Re-education, Self-Care/Home Management,Soft Tissue Mobilization,Taping, Therapeutic Activities, Therapeutic Exercises Modalities Cold Pack/Ice Massage,Electric Stimulation,Hot Packs Next Visit Focus/Plan Next Note Type Treatment Note
--- NOTE | 2021-10-19 17:52 | PT.OTN ---
Current Diagnoses Malignant neoplasm of unspecified site of unspecified female breast (10/19/21) Lumbago with sciatica, unspecified side (10/19/21) Difficulty in walking, not elsewhere classified (10/19/21) Abnormal posture (10/19/21) Estrogen receptor positive status [ER+] (10/19/21) Physical Therapy Treatment Note PT-OP-A Visit Information Start: 10/06/21 08:39 Freq: Status: Active Protocol: Document 10/19/21 14:37 MA (Rec: 10/19/21 15:25 MA [id number]) Out-Patient Physical Therapy Visit Information Visit Information Visit Type Treatment Note Visit Start Time 14:35 Visit Stop Time 15:35 Total Visit Minutes 60 Visit Number 3 Number of SMOKE [employer] FLAME SPECIALIST Visits 1 Precautions Precautions osteopenia PT-OP-B Current Condition Start: 10/06/21 08:39 Freq: Status: Active Protocol: Document 10/07/21 11:15 AW (Rec: 10/06/21 08:45 AW [id number]) Current Condition History of Current Condition Onset Date chronic - at least 3 years for back and at least 3 months for shoulders Current Complaints back and leg pain; painful and tight shoulders History of Current Condition 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 Her mother had very limited mobility in the last three years and Matilda was assisting with lots of heavy transfers. She believes her back pain started around that time. She wore a back brace for support at times but isn't sure it helped much. She now has pain that starts in her low back and radiates into buttock and lateral thigh and lateral calf . It is worse on the right but present bilaterally. She has numbness in similar distribution. Pt takes [place] ~ every other day when pain gets very bad. Smoking marijuana helps distract from her pain. 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 She has completed adjuvant radiation therapy as of August. She will start anastrozole soon and is concerned about reductions in estrogen and estradiol. Since cancer treatment, she has grown aware of tight and painful shoulders bilaterally (left worse than right) and reports painful lumps on the left side under breast tissue. Scar tissue seems tight and restricts movement. Recent nuc med bone scan was negative for metastasis. Matilda lives alone since the of her mother. She depends on her logan. She is considering a cancer support group and has good friends. Prior Treatments and Tests - Chiropractic - Nuc med bone scan September 2021 with no evidence of metastasis. - Lumbar MRI 2018: Lower lumbar spine degenerative changes are seen, which are most prominent at the L5-S1 level. - Cervical MRI 2018: Multilevel disc bulges. Spinal stenosis is present most notable at C5-6 secondary to disc bulge. Multiple foraminal narrowing most notable at C5- 6 secondary to uncovertebral arthropathy. Treatment Goals Patient/Caregiver Goals More walking, more exercise, possibly join a gym. Has exercise bike and some weights at home. Lift without pain. Personal Factors Other Personal Factors That May Effect a fib, BMI 37, chronic low Therapy/Recovery back pain PT-OP-C Subjective Start: 10/06/21 08:39 Freq: Status: Active Protocol: Document 10/19/21 14:37 MA (Rec: 10/19/21 15:25 MA [id number]) OP-PT Subjective Patient Comments Patient Comments Same pain in my back and legs PT-OP-D Balance Start: 10/06/21 08:39 Freq: Status: Active Protocol: Document 10/07/21 11:15 AW (Rec: 10/07/21 13:41 AW [id number]) Balance Tests Single Limb Standing Single Limb- Right 3 sec with fingertip support on wall Single Limb- Left 5 sec with fingertip support on wall PT-OP-F Manual Assessment Start: 10/06/21 08:39 Freq: Status: Active Protocol: Document 10/07/21 11:15 AW (Rec: 10/07/21 13:44 AW [id number]) Manual Assessments Soft Tissue Assessment Soft Tissue Mobility Assessment Severely limited internal rotation in bilateral hips. TTP at bilateral greater trochanters, deep external rotators, and gluteal region PT-OP-G Mobility & Gait Start: 10/06/21 08:39 Freq: Status: Active Protocol: Document 10/07/21 11:15 AW (Rec: 10/07/21 16:23 AW [id number]) OP Mobility Evaluation Bed Mobility Rolling Difficult and painful rolling Supine to and from Sit Increased time and cues needed for log roll Transfers Sit to Stand Definite need for use of hands OP Gait Assessment Comments Gait Comments Pt ambulates independently with lateral lean in ipsilateral stance, wide base of support, decreased RLE stance time, reduced heel strike and weak toe off. Generally unsteady. PT-OP-H Neuro Start: 10/06/21 08:39 Freq: Status: Active Protocol: Document 10/07/21 11:15 AW (Rec: 10/07/21 16:23 AW [id number]) Sensation Evaluation Gross Sensation Gross Sensation Left LE Impaired,Right LE Impaired Comments Summary Comments Pain and numbness in buttocks and posterolateral thigh, lateral calf. Right more significantly affected than left. Deep Tendon Reflex & Clonus Assessment Deep Tendon Reflex Bicep Deep Tendon Reflex 2+ Normal Achilles Deep Tendon Reflex 1+ Diminished Patellar Deep Tendon Reflex 2+ Normal PT-OP-J Posture/Palpation/Skin Start: 10/06/21 08:39 Freq: Status: Active Protocol: Document 10/07/21 11:15 AW (Rec: 10/07/21 16:23 AW [id number]) Posture Evaluation Comments Posture Comments Flat lumbar spine with hinge at L4-5. Extension severely limited. Decreased weightbearing RLE in static stance and in gait Skin Assessment Incisional Assessment Incision Appearance/Comments Left lumpectomy scar with significantly limited mobility . PT-OP-K Range of Motion Start: 10/06/21 08:39 Freq: Status: Active Protocol: Document 10/07/21 11:15 AW (Rec: 10/08/21 15:10 AW [id number]) Cervical Spine Range of Motion Cervical Spine Active Testing Position Sitting Flexion 45 Extension 25 Rotation Left 40 Rotation Right 40 Lateral Flexion Left 20 Lateral Flexion Right 15 ROM Limitations Soft Tissue Tightness,Pain Comments Lateral flexion limited by increased tone in upper traps bilaterally Lumbar Spine Range of Motion Lumbar Spine Active Testing Position Standing Comments Pt is able to bend forward with fingertips to within 8 from floor. Positive [place] sign. Lateral flexion severely limited and pt can only slide fingertips ~3 inches toward lateral knee. Shoulder Goniometric Range of Motion Shoulder Right Active Testing Position Sitting Flexion 140 Abduction 135 External Rotation at 0 degrees Abduction 50 Internal Rotation Behind Back (text) T10 Left Active Testing Position Sitting Flexion 140 Abduction 137 External Rotation at 0 degrees Abduction 55 Internal Rotation Behind Back (text) T12 Hip Goniometric Range of Motion Hip bilat Testing Position Supine Comments Internal rotation severely limited and end-range PROM does reproduce pain PT-OP-L Special Tests Start: 10/06/21 08:39 Freq: Status: Active Protocol: Document 10/07/21 11:15 AW (Rec: 10/07/21 16:23 AW [id number]) Special Tests Lumbar Spine Special Tests Slump Test Results positive for pain, numbness, tingling RLE 2nd most provocative position PT-OP-M Strength Start: 10/06/21 08:39 Freq: Status: Active Protocol: Document 10/07/21 11:15 AW (Rec: 10/07/21 16:23 AW [id number]) Hip Strength Hip Manual Muscle Testing Right Flexion (L2) 4- Good- Extension (S1) 3 Fair Abduction 3 Fair Left Flexion (L2) 4 Good Extension (S1) 3+ Fair+ Abduction 3+ Fair+ Knee Strength Knee Manual Muscle Testing bilat Flexion (S2) 4 Good Extension (L3) 4 Good Ankle/Foot Strength Ankle and Foot Manual Muscle Testing bilat Dorsiflexion (L4) 4 Good Comments Pt unable to complete two single leg heel lifts with good elevation. Toe Strength Toe Manual Muscle Testing Great Toe Extension 4+ Good+ PT-OP-Q Treatments Start: 10/06/21 08:39 Freq: Status: Active Protocol: Document 10/19/21 14:37 MA (Rec: 10/19/21 15:25 MA [id number]) Therapeutic Exercises Supine Exercises Pelvic Tilts Supine Exercise Name posterior for core cues Reps/Minutes 10x Comments for lead into SLR piriformis stretch Side bilateral Reps/Minutes 30 ea Comments will perform in seated at home SLR Supine Exercise Name straight leg raise Side bilateral Reps/Minutes x8 Comments cues to use core LTR Supine Exercise Name lower trunk rotation Side bilateral Reps/Minutes 10x Bridges Side bilateral Reps/Minutes x10 Comments minor R side LB and hip pain ER Supine Exercise Name hip ER Side bilateral Equipment Used lvl 2 TB Reps/Minutes x10 sciatic nerve glide Supine Exercise Name sciatic nerve glide Side bilateral Comments HS stretch with AP - clinic only; review next visit HS stretch Supine Exercise Name HS stretch/SKTC Side bilateral Equipment Used towel behind thigh; knee bent Reps/Minutes 30SH x 4 Comments HEP Sidelying Exercises Open Book Sidelying Exercise Name thoracic rotation, pec stretch Side bilateral Reps/Minutes x10 Manual Therapy Treatment Soft Tissue Mobilization right hip Body Location glute med, external rotators Mobilization Type Strumming,Sustained Pressure, Trigger Point Release Intensity/Depth Superficial Body Position Sidelying Comments with hip ER Self-Care/Home Management Treatment Education Patient Education Home Exercise Program Other Education HEP: pelvic tilts, SLR, LTR, supine clamshells, open book, piriformis stretch, bridge, self-STM to hip with tennis ball PT-OP-R Modalities Start: 10/06/21 08:39 Freq: Status: Active Protocol: Document 10/19/21 14:37 MA (Rec: 10/19/21 15:25 MA [id number]) Hot Pack/Cold Pack Treatment Hot Pack Location lumbar Patient Position Hooklying Treatment Duration (minutes) 15 Patient Tolerance Good PT-OP-T Assessment and Plan Start: 10/06/21 08:39 Freq: Status: Active Protocol: Document 10/19/21 14:37 MA (Rec: 10/19/21 15:25 MA [id number]) Physical Therapy Assessment Goals Three Impairment strength Short Term Goal (STG) Pt will improve bilateral hip strength to 4/5 all planes for improved stability in gait STG Duration 6 weeks - 11/18/21 [facility] Goal (LTG) Pt will complete 10 reps on 30 -second sit to stand test without use of upper extremities as a measure of improved BLE strength LTG Duration 12 weeks - 12/30/21 Two Impairment standing and walking tolerance Short Term Goal (STG) Pt will stand 20 minutes without increase in baseline pain to improve her ability to cook a simple meal for herself. STG Duration 6 weeks - 11/18/21 Cashier Receptionist Goal (LTG) Pt will walk for 30 minutes without increase in baseline pain to improve her ability to participate in a self- directed walking program. LTG Duration 12 weeks - 12/30/21 One Impairment lacks HEP Short Term Goal (STG) Pt will be instructed in HEP for pain management, ROM, and core stabilization to support therapy services provided in clinic. STG Duration 6 weeks - 11/18/21 Cashier Receptionist Goal (LTG) Pt will be independent with HEP for pain management, strength, and balance to sustain gains made in therapy. LTG Duration 12 weeks - 12/30/21 Assessment Summary Assessment Worked on HEP exercises for decreasing hip/LBP, increasing hip/LE strength, and improving core engagement. Pt has some pain through R glute during bridges that improves after STM to glutes. Added in open book exercise for pec stretch and to improve thoracic rotation. Will continue with pec stretch exercises next session to improve shd pain/tightness from breast cancer sx. Physical Therapy Plan Frequency and Duration Frequency of Treatment 2x/Week Duration of Treatment 12 weeks Plan of Care Start Date 10/07/21 Plan of Care End Date 12/30/21 Therapeutic Interventions Therapeutic Interventions Aquatic Therapy,Balance Training,Gait Training,Home Exercise Program,Joint Mobilizations,Lymphedema Management,Manual Therapy, Neuromuscular Re-education, Self-Care/Home Management,Soft Tissue Mobilization,Taping, Therapeutic Activities, Therapeutic Exercises Modalities Cold Pack/Ice Massage,Electric Stimulation,Hot Packs Next Visit Focus/Plan Next Note Type Treatment Note Next Visit Plan Review HEP, add in doorway pec stretch or supine horiz ABD on foam roller to stretch pecs , begin shd STM and continue with STM to R hip
--- NOTE | 2021-10-21 15:27 | PT.OTN ---
Current Diagnoses Malignant neoplasm of unspecified site of unspecified female breast (10/19/21) Lumbago with sciatica, unspecified side (10/19/21) Difficulty in walking, not elsewhere classified (10/19/21) Abnormal posture (10/19/21) Estrogen receptor positive status [ER+] (10/19/21) Physical Therapy Treatment Note PT-OP-A Visit Information Start: 10/06/21 08:39 Freq: Status: Active Protocol: Document 10/21/21 15:03 LJ (Rec: 10/21/21 15:27 LJ [id number]) Out-Patient Physical Therapy Visit Information Visit Information Visit Type Aquatic Treatment Note Visit Start Time 11:00 Visit Stop Time 11:45 Total Visit Minutes 45 Visit Number 4 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 Her mother had very limited mobility in the last three years and Matilda was assisting with lots of heavy transfers. She believes her back pain started around that time. She wore a back brace for support at times but isn't sure it helped much. She now has pain that starts in her low back and radiates into buttock and lateral thigh and lateral calf . It is worse on the right but present bilaterally. She has numbness in similar distribution. Pt takes Balko ~ every other day when pain gets very bad. Smoking marijuana helps distract from her pain. 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 She has completed adjuvant radiation therapy as of August. She will start anastrozole soon and is concerned about reductions in estrogen and estradiol. Since cancer treatment, she has grown aware of tight and painful shoulders bilaterally (left worse than right) and reports painful lumps on the left side under breast tissue. Scar tissue seems tight and restricts movement. Recent nuc med bone scan was negative for metastasis. Matilda lives alone since the of her mother. She depends on her logan. She is considering a cancer support group and has good friends. Prior Treatments and Tests - Chiropractic - Nuc med bone scan September 2021 with no evidence of metastasis. - Lumbar MRI 2018: Lower lumbar spine degenerative changes are seen, which are most prominent at the L5-S1 level. - Cervical MRI 2018: Multilevel disc bulges. Spinal stenosis is present most notable at C5-6 secondary to disc bulge. Multiple foraminal narrowing most notable at C5- 6 secondary to uncovertebral arthropathy. Treatment Goals Patient/Caregiver Goals More walking, more exercise, possibly join a gym. Has exercise bike and some weights at home. Lift without pain. Personal Factors Other Personal Factors That May Effect a fib, BMI 37, chronic low Therapy/Recovery back pain PT-OP-C Subjective Start: 10/06/21 08:39 Freq: Status: Active Protocol: Document 10/21/21 15:03 LJ (Rec: 10/21/21 15:27 LJ [id number]) OP-PT Subjective Patient Comments Patient Comments Pt states she is excited for pool therapy. Feels she will get a lot out of it. PT-OP-D Balance Start: 10/06/21 08:39 Freq: Status: Active Protocol: Document 10/07/21 11:15 AW (Rec: 10/07/21 13:41 AW [id number]) Balance Tests Single Limb Standing Single Limb- Right 3 sec with fingertip support on wall Single Limb- Left 5 sec with fingertip support on wall PT-OP-F Manual Assessment Start: 10/06/21 08:39 Freq: Status: Active Protocol: Document 10/07/21 11:15 AW (Rec: 10/07/21 13:44 AW [id number]) Manual Assessments Soft Tissue Assessment Soft Tissue Mobility Assessment Severely limited internal rotation in bilateral hips. TTP at bilateral greater trochanters, deep external rotators, and gluteal region PT-OP-G Mobility & Gait Start: 10/06/21 08:39 Freq: Status: Active Protocol: Document 10/07/21 11:15 AW (Rec: 10/07/21 16:23 AW [id number]) OP Mobility Evaluation Bed Mobility Rolling Difficult and painful rolling Supine to and from Sit Increased time and cues needed for log roll Transfers Sit to Stand Definite need for use of hands OP Gait Assessment Comments Gait Comments Pt ambulates independently with lateral lean in ipsilateral stance, wide base of support, decreased RLE stance time, reduced heel strike and weak toe off. Generally unsteady. PT-OP-H Neuro Start: 10/06/21 08:39 Freq: Status: Active Protocol: Document 10/07/21 11:15 AW (Rec: 10/07/21 16:23 AW [id number]) Sensation Evaluation Gross Sensation Gross Sensation Left LE Impaired,Right LE Impaired Comments Summary Comments Pain and numbness in buttocks and posterolateral thigh, lateral calf. Right more significantly affected than left. Deep Tendon Reflex & Clonus Assessment Deep Tendon Reflex Bicep Deep Tendon Reflex 2+ Normal Achilles Deep Tendon Reflex 1+ Diminished Patellar Deep Tendon Reflex 2+ Normal PT-OP-J Posture/Palpation/Skin Start: 10/06/21 08:39 Freq: Status: Active Protocol: Document 10/07/21 11:15 AW (Rec: 10/07/21 16:23 AW [id number]) Posture Evaluation Comments Posture Comments Flat lumbar spine with hinge at L4-5. Extension severely limited. Decreased weightbearing RLE in static stance and in gait Skin Assessment Incisional Assessment Incision Appearance/Comments Left lumpectomy scar with significantly limited mobility . PT-OP-K Range of Motion Start: 10/06/21 08:39 Freq: Status: Active Protocol: Document 10/07/21 11:15 AW (Rec: 10/08/21 15:10 AW [id number]) Cervical Spine Range of Motion Cervical Spine Active Testing Position Sitting Flexion 45 Extension 25 Rotation Left 40 Rotation Right 40 Lateral Flexion Left 20 Lateral Flexion Right 15 ROM Limitations Soft Tissue Tightness,Pain Comments Lateral flexion limited by increased tone in upper traps bilaterally Lumbar Spine Range of Motion Lumbar Spine Active Testing Position Standing Comments Pt is able to bend forward with fingertips to within 8 from floor. Positive Danica sign. Lateral flexion severely limited and pt can only slide fingertips ~3 inches toward lateral knee. Shoulder Goniometric Range of Motion Shoulder Right Active Testing Position Sitting Flexion 140 Abduction 135 External Rotation at 0 degrees Abduction 50 Internal Rotation Behind Back (text) T10 Left Active Testing Position Sitting Flexion 140 Abduction 137 External Rotation at 0 degrees Abduction 55 Internal Rotation Behind Back (text) T12 Hip Goniometric Range of Motion Hip bilat Testing Position Supine Comments Internal rotation severely limited and end-range PROM does reproduce pain PT-OP-L Special Tests Start: 10/06/21 08:39 Freq: Status: Active Protocol: Document 10/07/21 11:15 AW (Rec: 10/07/21 16:23 AW [id number]) Special Tests Lumbar Spine Special Tests Slump Test Results positive for pain, numbness, tingling RLE 2nd most provocative position PT-OP-M Strength Start: 10/06/21 08:39 Freq: Status: Active Protocol: Document 10/07/21 11:15 AW (Rec: 10/07/21 16:23 AW [id number]) Hip Strength Hip Manual Muscle Testing Right Flexion (L2) 4- Good- Extension (S1) 3 Fair Abduction 3 Fair Left Flexion (L2) 4 Good Extension (S1) 3+ Fair+ Abduction 3+ Fair+ Knee Strength Knee Manual Muscle Testing bilat Flexion (S2) 4 Good Extension (L3) 4 Good Ankle/Foot Strength Ankle and Foot Manual Muscle Testing bilat Dorsiflexion (L4) 4 Good Comments Pt unable to complete two single leg heel lifts with good elevation. Toe Strength Toe Manual Muscle Testing Great Toe Extension 4+ Good+ PT-OP-Q Treatments Start: 10/06/21 08:39 Freq: Status: Active Protocol: Document 10/19/21 14:37 MA (Rec: 10/19/21 15:25 MA [id number]) Therapeutic Exercises Supine Exercises Pelvic Tilts Supine Exercise Name posterior for core cues Reps/Minutes 10x Comments for lead into SLR piriformis stretch Side bilateral Reps/Minutes 30 ea Comments will perform in seated at home SLR Supine Exercise Name straight leg raise Side bilateral Reps/Minutes x8 Comments cues to use core LTR Supine Exercise Name lower trunk rotation Side bilateral Reps/Minutes 10x Bridges Side bilateral Reps/Minutes x10 Comments minor R side LB and hip pain ER Supine Exercise Name hip ER Side bilateral Equipment Used lvl 2 TB Reps/Minutes x10 sciatic nerve glide Supine Exercise Name sciatic nerve glide Side bilateral Comments HS stretch with AP - clinic only; review next visit HS stretch Supine Exercise Name HS stretch/SKTC Side bilateral Equipment Used towel behind thigh; knee bent Reps/Minutes 30SH x 4 Comments HEP Sidelying Exercises Open Book Sidelying Exercise Name thoracic rotation, pec stretch Side bilateral Reps/Minutes x10 Manual Therapy Treatment Soft Tissue Mobilization right hip Body Location glute med, external rotators Mobilization Type Strumming,Sustained Pressure, Trigger Point Release Intensity/Depth Superficial Body Position Sidelying Comments with hip ER Self-Care/Home Management Treatment Education Patient Education Home Exercise Program Other Education HEP: pelvic tilts, SLR, LTR, supine clamshells, open book, piriformis stretch, bridge, self-STM to hip with tennis ball PT-OP-R Modalities Start: 10/06/21 08:39 Freq: Status: Active Protocol: Document 10/19/21 14:37 MA (Rec: 10/19/21 15:25 MA [id number]) Hot Pack/Cold Pack Treatment Hot Pack Location lumbar Patient Position Hooklying Treatment Duration (minutes) 15 Patient Tolerance Good PT-OP-S Aquatic Treatment Start: 10/06/21 08:39 Freq: Status: Active Protocol: Document 10/21/21 15:03 LJ (Rec: 10/21/21 15:27 LJ [id number]) Aquatics Treatment Pool Entry/Exit Pool Entry/Exit Method Stairs Assistance Verbal Cues Water Walking Tandem Gait Water Level Chest Level Level of Assistance Verbal Cues [place] March Water Level Chest Level Level of Assistance Verbal Cues Marching Water Level Chest Level Level of Assistance Verbal Cues Comments breaststroke arms Backwards Water Level Chest Level Level of Assistance Verbal Cues Comments breaststroke arms Forwards Water Level Chest Level Level of Assistance Verbal Cues Comments 1 laps with paddles for stretch Lower Extremity Exercises Hip HAB/HAD Details hip and knee 90 degrees Body Position Standing Water Level Chest Level Reps/Duration [address] hip Details at wall Body Position Standing Water Level Chest Level Reps/Duration 10 each B Comments cues for posture and core engagement Lower Extremity Stretches free the hip Details at wall Body Position Standing Reps/Duration 10 B gastroc/soleus Details at wall Body Position Standing Reps/Duration 2 x 30 B HS Details on stairs Body Position Standing Reps/Duration 2 x 30 B hip flexors Body Position Standing Reps/Duration 2 x 30 B Upper Extremity Exercises overhead stretch w/cane Body Position Standing Water Level Neck Level Reps/Duration 3 x 30 corner stretch Body Position Standing Reps/Duration 45 sec x2 fl/ext/ab/ad Details braced at wall Body Position Sitting Reps/Duration 10 B each Spinal Exercises trunk rotation Details at wall Body Position Sitting Water Level Neck Level Reps/Duration 10 Comments emphasize pelvic tilt; UEs flexed to 90 degrees [place] Activities [place] Activities Bicycle,Cross [place] Equipment lg belt, #2 wts, M BBs Comments gentle PT-OP-T Assessment and Plan Start: 10/06/21 08:39 Freq: Status: Active Protocol: Document 10/21/21 15:03 JUJU (Rec: 10/21/21 15:27 [id number]) Physical Therapy Assessment Rehab Potential Rehabilitation Potential Fair Evaluation Complexity Number of Personal Factors/Comorbidities 3 or More Number of Body Systems Impaired 3 Clinical Presentation at Evaluation Evolving Impairments Impairments Activity Tolerance,Balance, Gait,Pain,Posture,ROM, Sensation,Soft Tissue Mobility ,Strength Goals Three Impairment strength Short Term Goal (STG) Pt will improve bilateral hip strength to 4/5 all planes for improved stability in gait STG Duration 6 weeks - 11/18/21 Assisted Goal (LTG) Pt will complete 10 reps on 30 -second sit to stand test without use of upper extremities as a measure of improved BLE strength LTG Duration 12 weeks - 12/30/21 Two Impairment standing and walking tolerance Short Term Goal (STG) Pt will stand 20 minutes without increase in baseline pain to improve her ability to cook a simple meal for herself. STG Duration 6 weeks - 11/18/21 Senior Client Advisor Goal (LTG) Pt will walk for 30 minutes without increase in baseline pain to improve her ability to participate in a self- directed walking program. LTG Duration 12 weeks - 12/30/21 One Impairment lacks HEP Short Term Goal (STG) Pt will be instructed in HEP for pain management, ROM, and core stabilization to support therapy services provided in clinic. STG Duration 6 weeks - 11/18/21 Assisted Goal (LTG) Pt will be independent with HEP for pain management, strength, and balance to sustain gains made in therapy. LTG Duration 12 weeks - 12/30/21 Assessment Summary Assessment Pt tolerated low level exercises well. She remained in the water for an additional 30 min to walk though she was advised against it d/t it being the first time in aquatic therapy. Deep water gentle exercises provided good relief from stiff back. Pt reported that it felt very relaxing. The only pain she felt was with walking backwards when she took a long step. She felt pinches occasionally. Physical Therapy Plan Frequency and Duration Frequency of Treatment 2x/Week Duration of Treatment 12 weeks Plan of Care Start Date 10/07/21 Plan of Care End Date 12/30/21 Therapeutic Interventions Therapeutic Interventions Aquatic Therapy,Balance Training,Gait Training,Home Exercise Program,Joint Mobilizations,Lymphedema Management,Manual Therapy, Neuromuscular Re-education, Self-Care/Home Management,Soft Tissue Mobilization,Taping, Therapeutic Activities, Therapeutic Exercises Modalities Cold Pack/Ice Massage,Electric Stimulation,Hot Packs Next Visit Focus/Plan Next Note Type Treatment Note Next Visit Plan Assess response to AT and progress as tolerated for overall conditioning and strengthening.
--- NOTE | 2021-10-30 13:42 | PT.OTN ---
Current Diagnoses Malignant neoplasm of unspecified site of unspecified female breast (10/30/21) Lumbago with sciatica, unspecified side (10/30/21) Difficulty in walking, not elsewhere classified (10/30/21) Abnormal posture (10/30/21) Estrogen receptor positive status [ER+] (10/30/21) Physical Therapy Treatment Note PT-OP-A Visit Information Start: 10/06/21 08:39 Freq: Status: Active Protocol: Document 10/30/21 11:30 MA (Rec: 10/30/21 13:00 MA [id number]) Out-Patient Physical Therapy Visit Information Visit Information Visit Type Treatment Note Visit Start Time 12:00 Visit Stop Time 01:00 Total Visit Minutes 60 Visit Number 5 Number of PAINTER HELPER SPRAY Visits 3 PT-OP-B Current Condition Start: 10/06/21 08:39 Freq: Status: Active Protocol: Document 10/07/21 11:15 AW (Rec: 10/06/21 08:45 AW [id number]) Current Condition History of Current Condition Onset Date chronic - at least 3 years for back and at least 3 months for shoulders Current Complaints back and leg pain; painful and tight shoulders History of Current Condition 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 Her mother had very limited mobility in the last three years and Matilda was assisting with lots of heavy transfers. She believes her back pain started around that time. She wore a back brace for support at times but isn't sure it helped much. She now has pain that starts in her low back and radiates into buttock and lateral thigh and lateral calf . It is worse on the right but present bilaterally. She has numbness in similar distribution. Pt takes [place] ~ every other day when pain gets very bad. Smoking marijuana helps distract from her pain. 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 She has completed adjuvant radiation therapy as of August. She will start anastrozole soon and is concerned about reductions in estrogen and estradiol. Since cancer treatment, she has grown aware of tight and painful shoulders bilaterally (left worse than right) and reports painful lumps on the left side under breast tissue. Scar tissue seems tight and restricts movement. Recent nuc med bone scan was negative for metastasis. Matilda lives alone since the of her mother. She depends on her logan. She is considering a cancer support group and has good friends. Prior Treatments and Tests - Chiropractic - Nuc med bone scan September 2021 with no evidence of metastasis. - Lumbar MRI 2018: Lower lumbar spine degenerative changes are seen, which are most prominent at the L5-S1 level. - Cervical MRI 2018: Multilevel disc bulges. Spinal stenosis is present most notable at C5-6 secondary to disc bulge. Multiple foraminal narrowing most notable at C5- 6 secondary to uncovertebral arthropathy. Treatment Goals Patient/Caregiver Goals More walking, more exercise, possibly join a gym. Has exercise bike and some weights at home. Lift without pain. Personal Factors Other Personal Factors That May Effect a fib, BMI 37, chronic low Therapy/Recovery back pain PT-OP-C Subjective Start: 10/06/21 08:39 Freq: Status: Active Protocol: Document 10/30/21 11:30 MA (Rec: 10/30/21 13:00 MA [id number]) OP-PT Subjective Patient Comments Patient Comments Pt really enjoyed her aquatic PT appt. She feels her HEP exercises are helping but she still has some back pain. PT-OP-D Balance Start: 10/06/21 08:39 Freq: Status: Active Protocol: Document 10/07/21 11:15 AW (Rec: 10/07/21 13:41 AW [id number]) Balance Tests Single Limb Standing Single Limb- Right 3 sec with fingertip support on wall Single Limb- Left 5 sec with fingertip support on wall PT-OP-F Manual Assessment Start: 10/06/21 08:39 Freq: Status: Active Protocol: Document 10/07/21 11:15 AW (Rec: 10/07/21 13:44 AW [id number]) Manual Assessments Soft Tissue Assessment Soft Tissue Mobility Assessment Severely limited internal rotation in bilateral hips. TTP at bilateral greater trochanters, deep external rotators, and gluteal region PT-OP-G Mobility & Gait Start: 10/06/21 08:39 Freq: Status: Active Protocol: Document 10/07/21 11:15 AW (Rec: 10/07/21 16:23 AW [id number]) OP Mobility Evaluation Bed Mobility Rolling Difficult and painful rolling Supine to and from Sit Increased time and cues needed for log roll Transfers Sit to Stand Definite need for use of hands OP Gait Assessment Comments Gait Comments Pt ambulates independently with lateral lean in ipsilateral stance, wide base of support, decreased RLE stance time, reduced heel strike and weak toe off. Generally unsteady. PT-OP-H Neuro Start: 10/06/21 08:39 Freq: Status: Active Protocol: Document 10/07/21 11:15 AW (Rec: 10/07/21 16:23 AW [id number]) Sensation Evaluation Gross Sensation Gross Sensation Left LE Impaired,Right LE Impaired Comments Summary Comments Pain and numbness in buttocks and posterolateral thigh, lateral calf. Right more significantly affected than left. Deep Tendon Reflex & Clonus Assessment Deep Tendon Reflex Bicep Deep Tendon Reflex 2+ Normal Achilles Deep Tendon Reflex 1+ Diminished Patellar Deep Tendon Reflex 2+ Normal PT-OP-J Posture/Palpation/Skin Start: 10/06/21 08:39 Freq: Status: Active Protocol: Document 10/07/21 11:15 AW (Rec: 10/07/21 16:23 AW [id number]) Posture Evaluation Comments Posture Comments Flat lumbar spine with hinge at L4-5. Extension severely limited. Decreased weightbearing RLE in static stance and in gait Skin Assessment Incisional Assessment Incision Appearance/Comments Left lumpectomy scar with significantly limited mobility . PT-OP-K Range of Motion Start: 10/06/21 08:39 Freq: Status: Active Protocol: Document 10/07/21 11:15 AW (Rec: 10/08/21 15:10 AW [id number]) Cervical Spine Range of Motion Cervical Spine Active Testing Position Sitting Flexion 45 Extension 25 Rotation Left 40 Rotation Right 40 Lateral Flexion Left 20 Lateral Flexion Right 15 ROM Limitations Soft Tissue Tightness,Pain Comments Lateral flexion limited by increased tone in upper traps bilaterally Lumbar Spine Range of Motion Lumbar Spine Active Testing Position Standing Comments Pt is able to bend forward with fingertips to within 8 from floor. Positive [place] sign. Lateral flexion severely limited and pt can only slide fingertips ~3 inches toward lateral knee. Shoulder Goniometric Range of Motion Shoulder Right Active Testing Position Sitting Flexion 140 Abduction 135 External Rotation at 0 degrees Abduction 50 Internal Rotation Behind Back (text) T10 Left Active Testing Position Sitting Flexion 140 Abduction 137 External Rotation at 0 degrees Abduction 55 Internal Rotation Behind Back (text) T12 Hip Goniometric Range of Motion Hip bilat Testing Position Supine Comments Internal rotation severely limited and end-range PROM does reproduce pain PT-OP-L Special Tests Start: 10/06/21 08:39 Freq: Status: Active Protocol: Document 10/07/21 11:15 AW (Rec: 10/07/21 16:23 AW [id number]) Special Tests Lumbar Spine Special Tests Slump Test Results positive for pain, numbness, tingling RLE 2nd most provocative position PT-OP-M Strength Start: 10/06/21 08:39 Freq: Status: Active Protocol: Document 10/07/21 11:15 AW (Rec: 10/07/21 16:23 AW [id number]) Hip Strength Hip Manual Muscle Testing Right Flexion (L2) 4- Good- Extension (S1) 3 Fair Abduction 3 Fair Left Flexion (L2) 4 Good Extension (S1) 3+ Fair+ Abduction 3+ Fair+ Knee Strength Knee Manual Muscle Testing bilat Flexion (S2) 4 Good Extension (L3) 4 Good Ankle/Foot Strength Ankle and Foot Manual Muscle Testing bilat Dorsiflexion (L4) 4 Good Comments Pt unable to complete two single leg heel lifts with good elevation. Toe Strength Toe Manual Muscle Testing Great Toe Extension 4+ Good+ PT-OP-Q Treatments Start: 10/06/21 08:39 Freq: Status: Active Protocol: Document 10/30/21 11:30 MA (Rec: 10/30/21 13:00 MA [id number]) Therapeutic Exercises Supine Exercises Pelvic Tilts Supine Exercise Name posterior for core cues Reps/Minutes 5x 5SH Comments for lead into SLR piriformis stretch Side bilateral Reps/Minutes 30 ea Comments will perform in seated at home SLR Supine Exercise Name straight leg raise Side bilateral Reps/Minutes x8 Comments cues to use core- some pain through R leg this sesison LTR Supine Exercise Name lower trunk rotation Side bilateral Reps/Minutes [id number] Bridges Side bilateral Reps/Minutes x10 sciatic nerve glide Supine Exercise Name sciatic nerve glide Side bilateral Comments added to HEP Sidelying Exercises Open Book Sidelying Exercise Name thoracic rotation, pec stretch Side bilateral Comments d/c today due to R hip pain when SL Standing Exercises Pec stretch Standing Exercise Name doorway pec stretch Side bilateral Reps/Minutes 10x Comments added to HEP Manual Therapy Treatment Soft Tissue Mobilization Pecs Body Location L pec mm and scar mobs Mobilization Type Myofascial Release,Sustained Pressure,Trigger Point Release Intensity/Depth Moderate Body Position Hooklying Comments w/ lumbar hotpack right hip Body Location glute med, external rotators Mobilization Type Strumming,Sustained Pressure, Trigger Point Release Intensity/Depth Superficial Body Position Sidelying Comments with hip ER Self-Care/Home Management Treatment Education Other Education Added to HEP: Supine sciatic nerve glide, doorway/corner pec stretch PT-OP-R Modalities Start: 10/06/21 08:39 Freq: Status: Active Protocol: Document 10/30/21 11:30 MA (Rec: 10/30/21 13:00 MA [id number]) Hot Pack/Cold Pack Treatment Hot Pack Location lumbar Patient Position Hooklying Treatment Duration (minutes) 15 Patient Tolerance Good Comments during STM to L pec/scar PT-OP-S Aquatic Treatment Start: 10/06/21 08:39 Freq: Status: Active Protocol: Document 10/21/21 15:03 LJ (Rec: 10/21/21 15:27 LJ [id number]) Aquatics Treatment Pool Entry/Exit Pool Entry/Exit Method Stairs Assistance Verbal Cues Water Walking Tandem Gait Water Level Chest Level Level of Assistance Verbal Cues [place] March Water Level Chest Level Level of Assistance Verbal Cues Marching Water Level Chest Level Level of Assistance Verbal Cues Comments breaststroke arms Backwards Water Level Chest Level Level of Assistance Verbal Cues Comments breaststroke arms Forwards Water Level Chest Level Level of Assistance Verbal Cues Comments 1 laps with paddles for stretch Lower Extremity Exercises Hip HAB/HAD Details hip and knee 90 degrees Body Position Standing Water Level Chest Level Reps/Duration [address] hip Details at wall Body Position Standing Water Level Chest Level Reps/Duration 10 each B Comments cues for posture and core engagement Lower Extremity Stretches free the hip Details at wall Body Position Standing Reps/Duration 10 B gastroc/soleus Details at wall Body Position Standing Reps/Duration 2 x 30 B HS Details on stairs Body Position Standing Reps/Duration 2 x 30 B hip flexors Body Position Standing Reps/Duration 2 x 30 B Upper Extremity Exercises overhead stretch w/cane Body Position Standing Water Level Neck Level Reps/Duration 3 x 30 corner stretch Body Position Standing Reps/Duration 45 sec x2 fl/ext/ab/ad Details braced at wall Body Position Sitting Reps/Duration 10 B each Spinal Exercises trunk rotation Details at wall Body Position Sitting Water Level Neck Level Reps/Duration 10 Comments emphasize pelvic tilt; UEs flexed to 90 degrees [place] Activities [place] Activities Bicycle,Cross Country Equipment lg belt, #2 wts, M BBs Comments gentle PT-OP-T Assessment and Plan Start: 10/06/21 08:39 Freq: Status: Active Protocol: Document 10/30/21 11:30 MA (Rec: 10/30/21 13:00 MA [id number]) Physical Therapy Assessment Goals Three Impairment strength Short Term Goal (STG) Pt will improve bilateral hip strength to 4/5 all planes for improved stability in gait STG Duration 6 weeks - 11/18/21 Insole Taper Goal (LTG) Pt will complete 10 reps on 30 -second sit to stand test without use of upper extremities as a measure of improved BLE strength LTG Duration 12 weeks - 12/30/21 Two Impairment standing and walking tolerance Short Term Goal (STG) Pt will stand 20 minutes without increase in baseline pain to improve her ability to cook a simple meal for herself. STG Duration 6 weeks - 11/18/21 Insole Taper Goal (LTG) Pt will walk for 30 minutes without increase in baseline pain to improve her ability to participate in a self- directed walking program. LTG Duration 12 weeks - 12/30/21 One Impairment lacks HEP Short Term Goal (STG) Pt will be instructed in HEP for pain management, ROM, and core stabilization to support therapy services provided in clinic. STG Duration 6 weeks - 11/18/21 Jail Goal (LTG) Pt will be independent with HEP for pain management, strength, and balance to sustain gains made in therapy. LTG Duration 12 weeks - 12/30/21 Assessment Summary Assessment Reviewed HEP with pt. Matilda was unable to tolerate R sidelying exercises today due to pain in R hip. Told pt d/c open book exercise if pain persists at home. Instructed pt to decrease ROM for pain felt during LTR and SLR with pt able to complete exercises without pain when decreasing ROM. Added supine sciatic nerve glide and doorway pec stretch to HEP. Began STM to pecs and scar over L breast from lumpectomy last year. Physical Therapy Plan Frequency and Duration Frequency of Treatment 2x/Week Duration of Treatment 12 weeks Plan of Care Start Date 10/07/21 Plan of Care End Date 12/30/21 Therapeutic Interventions Therapeutic Interventions Aquatic Therapy,Balance Training,Gait Training,Home Exercise Program,Joint Mobilizations,Lymphedema Management,Manual Therapy, Neuromuscular Re-education, Self-Care/Home Management,Soft Tissue Mobilization,Taping, Therapeutic Activities, Therapeutic Exercises Modalities Cold Pack/Ice Massage,Electric Stimulation,Hot Packs Next Visit Focus/Plan Next Note Type Treatment Note Next Visit Plan [place]: continue reviewing HEP ( new HEP pec stretch & supine sciatic nerve glide), STM to R glutes & iliacus; L pec/scar mobs. Pool: Assess response to AT and progress as tolerated for overall conditioning and strengthening.
--- NOTE | 2021-11-05 12:12 | PT.OTN ---
Current Diagnoses Malignant neoplasm of unspecified site of unspecified female breast (11/05/21) Lumbago with sciatica, unspecified side (11/05/21) Difficulty in walking, not elsewhere classified (11/05/21) Abnormal posture (11/05/21) Estrogen receptor positive status [ER+] (11/05/21) Physical Therapy Treatment Note PT-OP-A Visit Information Start: 10/06/21 08:39 Freq: Status: Active Protocol: Document 11/05/21 11:01 AW (Rec: 11/05/21 12:12 AW [id number]) Out-Patient Physical Therapy Visit Information Visit Information Visit Type Treatment Note Visit Start Time 11:15 Visit Stop Time 12:00 Total Visit Minutes 45 Visit Number 6 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 Her mother had very limited mobility in the last three years and Matilda was assisting with lots of heavy transfers. She believes her back pain started around that time. She wore a back brace for support at times but isn't sure it helped much. She now has pain that starts in her low back and radiates into buttock and lateral thigh and lateral calf . It is worse on the right but present bilaterally. She has numbness in similar distribution. Pt takes [place] ~ every other day when pain gets very bad. Smoking marijuana helps distract from her pain. 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 She has completed adjuvant radiation therapy as of August. She will start anastrozole soon and is concerned about reductions in estrogen and estradiol. Since cancer treatment, she has grown aware of tight and painful shoulders bilaterally (left worse than right) and reports painful lumps on the left side under breast tissue. Scar tissue seems tight and restricts movement. Recent nuc med bone scan was negative for metastasis. Matilda lives alone since the of her mother. She depends on her logan. She is considering a cancer support group and has good friends. Prior Treatments and Tests - Chiropractic - Nuc med bone scan September 2021 with no evidence of metastasis. - Lumbar MRI 2018: Lower lumbar spine degenerative changes are seen, which are most prominent at the L5-S1 level. - Cervical MRI 2018: Multilevel disc bulges. Spinal stenosis is present most notable at C5-6 secondary to disc bulge. Multiple foraminal narrowing most notable at C5- 6 secondary to uncovertebral arthropathy. Treatment Goals Patient/Caregiver Goals More walking, more exercise, possibly join a gym. Has exercise bike and some weights at home. Lift without pain. Personal Factors Other Personal Factors That May Effect a fib, BMI 37, chronic low Therapy/Recovery back pain PT-OP-C Subjective Start: 10/06/21 08:39 Freq: Status: Active Protocol: Document 11/05/21 11:01 AW (Rec: 11/05/21 12:12 AW [id number]) OP-PT Subjective Patient Comments Patient Comments Pt states her back has been better. Exercise seems to help and she is walking more. Can walk for about an hour at a time on a good day without increased pain. PT-OP-D Balance Start: 10/06/21 08:39 Freq: Status: Active Protocol: Document 10/07/21 11:15 AW (Rec: 10/07/21 13:41 AW [id number]) Balance Tests Single Limb Standing Single Limb- Right 3 sec with fingertip support on wall Single Limb- Left 5 sec with fingertip support on wall PT-OP-F Manual Assessment Start: 10/06/21 08:39 Freq: Status: Active Protocol: Document 10/07/21 11:15 AW (Rec: 10/07/21 13:44 AW [id number]) Manual Assessments Soft Tissue Assessment Soft Tissue Mobility Assessment Severely limited internal rotation in bilateral hips. TTP at bilateral greater trochanters, deep external rotators, and gluteal region PT-OP-G Mobility & Gait Start: 10/06/21 08:39 Freq: Status: Active Protocol: Document 10/07/21 11:15 AW (Rec: 10/07/21 16:23 AW [id number]) OP Mobility Evaluation Bed Mobility Rolling Difficult and painful rolling Supine to and from Sit Increased time and cues needed for log roll Transfers Sit to Stand Definite need for use of hands OP Gait Assessment Comments Gait Comments Pt ambulates independently with lateral lean in ipsilateral stance, wide base of support, decreased RLE stance time, reduced heel strike and weak toe off. Generally unsteady. PT-OP-H Neuro Start: 10/06/21 08:39 Freq: Status: Active Protocol: Document 10/07/21 11:15 AW (Rec: 10/07/21 16:23 AW [id number]) Sensation Evaluation Gross Sensation Gross Sensation Left LE Impaired,Right LE Impaired Comments Summary Comments Pain and numbness in buttocks and posterolateral thigh, lateral calf. Right more significantly affected than left. Deep Tendon Reflex & Clonus Assessment Deep Tendon Reflex Bicep Deep Tendon Reflex 2+ Normal Achilles Deep Tendon Reflex 1+ Diminished Patellar Deep Tendon Reflex 2+ Normal PT-OP-J Posture/Palpation/Skin Start: 10/06/21 08:39 Freq: Status: Active Protocol: Document 10/07/21 11:15 AW (Rec: 10/07/21 16:23 AW [id number]) Posture Evaluation Comments Posture Comments Flat lumbar spine with hinge at L4-5. Extension severely limited. Decreased weightbearing RLE in static stance and in gait Skin Assessment Incisional Assessment Incision Appearance/Comments Left lumpectomy scar with significantly limited mobility . PT-OP-K Range of Motion Start: 10/06/21 08:39 Freq: Status: Active Protocol: Document 10/07/21 11:15 AW (Rec: 10/08/21 15:10 AW [id number]) Cervical Spine Range of Motion Cervical Spine Active Testing Position Sitting Flexion 45 Extension 25 Rotation Left 40 Rotation Right 40 Lateral Flexion Left 20 Lateral Flexion Right 15 ROM Limitations Soft Tissue Tightness,Pain Comments Lateral flexion limited by increased tone in upper traps bilaterally Lumbar Spine Range of Motion Lumbar Spine Active Testing Position Standing Comments Pt is able to bend forward with fingertips to within 8 from floor. Positive Danica sign. Lateral flexion severely limited and pt can only slide fingertips ~3 inches toward lateral knee. Shoulder Goniometric Range of Motion Shoulder Right Active Testing Position Sitting Flexion 140 Abduction 135 External Rotation at 0 degrees Abduction 50 Internal Rotation Behind Back (text) T10 Left Active Testing Position Sitting Flexion 140 Abduction 137 External Rotation at 0 degrees Abduction 55 Internal Rotation Behind Back (text) T12 Hip Goniometric Range of Motion Hip bilat Testing Position Supine Comments Internal rotation severely limited and end-range PROM does reproduce pain PT-OP-L Special Tests Start: 10/06/21 08:39 Freq: Status: Active Protocol: Document 10/07/21 11:15 AW (Rec: 10/07/21 16:23 AW [id number]) Special Tests Lumbar Spine Special Tests Slump Test Results positive for pain, numbness, tingling RLE 2nd most provocative position PT-OP-M Strength Start: 10/06/21 08:39 Freq: Status: Active Protocol: Document 10/07/21 11:15 AW (Rec: 10/07/21 16:23 AW [id number]) Hip Strength Hip Manual Muscle Testing Right Flexion (L2) 4- Good- Extension (S1) 3 Fair Abduction 3 Fair Left Flexion (L2) 4 Good Extension (S1) 3+ Fair+ Abduction 3+ Fair+ Knee Strength Knee Manual Muscle Testing bilat Flexion (S2) 4 Good Extension (L3) 4 Good Ankle/Foot Strength Ankle and Foot Manual Muscle Testing bilat Dorsiflexion (L4) 4 Good Comments Pt unable to complete two single leg heel lifts with good elevation. Toe Strength Toe Manual Muscle Testing Great Toe Extension 4+ Good+ PT-OP-Q Treatments Start: 10/06/21 08:39 Freq: Status: Active Protocol: Document 11/05/21 11:01 AW (Rec: 11/05/21 12:12 AW [id number]) Cardio Equipment Recumbent Stepper (Sci-Fit) Duration (Minutes) 6 Resistance 2 Seat Position 8 Therapeutic Exercises Supine Exercises Pelvic Tilts Supine Exercise Name with BKFO Equipment Used nylon strap under L/S for tactile feedback Reps/Minutes 5x 5SH Comments HEP SLR Supine Exercise Name straight leg raise Side bilateral Reps/Minutes x8 Comments cues to use core- some pain through R leg this session LTR Supine Exercise Name lower trunk rotation Side bilateral Reps/Minutes [id number] Bridges Side bilateral Reps/Minutes x10 Comments cued heel drive Standing Exercises Pec stretch Standing Exercise Name doorway pec stretch Side bilateral Reps/Minutes 10x Comments reviewed HEP; arms <90 deg abduction for pain free range Manual Therapy Treatment Soft Tissue Mobilization Pecs Body Location L pec mm and scar mobs Mobilization Type Myofascial Release,Sustained Pressure,Trigger Point Release Intensity/Depth Moderate Body Position Hooklying Comments w/ lumbar hotpack right hip Body Location glutes, iliacus Mobilization Type Strumming,Sustained Pressure, Trigger Point Release Intensity/Depth Moderate Body Position Sidelying Self-Care/Home Management Treatment Education Other Education Added to HEP: BKFO with PPT. PT-OP-R Modalities Start: 10/06/21 08:39 Freq: Status: Active Protocol: Document 11/05/21 11:01 AW (Rec: 11/05/21 12:12 AW [id number]) Hot Pack/Cold Pack Treatment Hot Pack Location lumbar Patient Position Hooklying Treatment Duration (minutes) 15 Patient Tolerance Good Comments during STM to L pec/scar PT-OP-T Assessment and Plan Start: 10/06/21 08:39 Freq: Status: Active Protocol: Document 11/05/21 11:01 AW (Rec: 11/05/21 12:12 AW [id number]) Physical Therapy Assessment Goals Three Impairment strength Short Term Goal (STG) Pt will improve bilateral hip strength to 4/5 all planes for improved stability in gait STG Duration 6 weeks - 11/18/21 Senior Living Goal (LTG) Pt will complete 10 reps on 30 -second sit to stand test without use of upper extremities as a measure of improved BLE strength LTG Duration 12 weeks - 12/30/21 Two Impairment standing and walking tolerance Short Term Goal (STG) Pt will stand 20 minutes without increase in baseline pain to improve her ability to cook a simple meal for herself. STG Duration 6 weeks - 11/18/21 Senior Living Goal (LTG) Pt will walk for 30 minutes without increase in baseline pain to improve her ability to participate in a self- directed walking program. LTG Duration 12 weeks - 12/30/21 One Impairment lacks HEP Short Term Goal (STG) Pt will be instructed in HEP for pain management, ROM, and core stabilization to support therapy services provided in clinic. STG Duration 6 weeks - 11/18/21 Senior Living Goal (LTG) Pt will be independent with HEP for pain management, strength, and balance to sustain gains made in therapy. LTG Duration 12 weeks - 12/30/21 Assessment Summary Assessment Reviewed HEP and progressed supine core facilitation. Pt tolerated all well except SLR with RLE which provoked R anterior hip pain. Pt shows good effort with all activities and is strongly motivated to progress, Physical Therapy Plan Frequency and Duration Frequency of Treatment 2x/Week Duration of Treatment 12 weeks Plan of Care Start Date 10/07/21 Plan of Care End Date 12/30/21 Therapeutic Interventions Therapeutic Interventions Aquatic Therapy,Balance Training,Gait Training,Home Exercise Program,Joint Mobilizations,Lymphedema Management,Manual Therapy, Neuromuscular Re-education, Self-Care/Home Management,Soft Tissue Mobilization,Taping, Therapeutic Activities, Therapeutic Exercises Modalities Cold Pack/Ice Massage,Electric Stimulation,Hot Packs Next Visit Focus/Plan Next Note Type Treatment Note Next Visit Plan Land: continue reviewing HEP ( new HEP pec stretch & supine sciatic nerve glide), STM to R glutes & iliacus; L pec/scar mobs. Pool: Assess response to AT and progress as tolerated for overall conditioning and strengthening.
--- NOTE | 2021-11-11 14:52 | PT.OTN ---
Current Diagnoses Malignant neoplasm of unspecified site of unspecified female breast (11/11/21) Lumbago with sciatica, unspecified side (11/11/21) Difficulty in walking, not elsewhere classified (11/11/21) Abnormal posture (11/11/21) Estrogen receptor positive status [ER+] (11/11/21) Physical Therapy Treatment Note PT-OP-A Visit Information Start: 10/06/21 08:39 Freq: Status: Active Protocol: Document 11/11/21 14:44 LJ (Rec: 11/11/21 14:52 LJ [id number]) Out-Patient Physical Therapy Visit Information Visit Information Visit Type Aquatic Treatment Note Visit Start Time 11:00 Visit Stop Time 11:45 Total Visit Minutes 45 Visit Number 7 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 Her mother had very limited mobility in the last three years and Matilda was assisting with lots of heavy transfers. She believes her back pain started around that time. She wore a back brace for support at times but isn't sure it helped much. She now has pain that starts in her low back and radiates into buttock and lateral thigh and lateral calf . It is worse on the right but present bilaterally. She has numbness in similar distribution. Pt takes [place] ~ every other day when pain gets very bad. Smoking marijuana helps distract from her pain. 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 She has completed adjuvant radiation therapy as of August. She will start anastrozole soon and is concerned about reductions in estrogen and estradiol. Since cancer treatment, she has grown aware of tight and painful shoulders bilaterally (left worse than right) and reports painful lumps on the left side under breast tissue. Scar tissue seems tight and restricts movement. Recent nuc med bone scan was negative for metastasis. Matilda lives alone since the of her mother. She depends on her logan. She is considering a cancer support group and has good friends. Prior Treatments and Tests - Chiropractic - Nuc med bone scan September 2021 with no evidence of metastasis. - Lumbar MRI 2018: Lower lumbar spine degenerative changes are seen, which are most prominent at the L5-S1 level. - Cervical MRI 2018: Multilevel disc bulges. Spinal stenosis is present most notable at C5-6 secondary to disc bulge. Multiple foraminal narrowing most notable at C5- 6 secondary to uncovertebral arthropathy. Treatment Goals Patient/Caregiver Goals More walking, more exercise, possibly join a gym. Has exercise bike and some weights at home. Lift without pain. Personal Factors Other Personal Factors That May Effect a fib, BMI 37, chronic low Therapy/Recovery back pain PT-OP-C Subjective Start: 10/06/21 08:39 Freq: Status: Active Protocol: Document 11/11/21 14:44 LJ (Rec: 11/11/21 14:52 LJ [id number]) OP-PT Subjective Patient Comments Patient Comments Pt states she has been doing HEP and is feeling better. She wants to go to the pool on her own to continue aquatic exercises between appointments . PT-OP-D Balance Start: 10/06/21 08:39 Freq: Status: Active Protocol: Document 10/07/21 11:15 AW (Rec: 10/07/21 13:41 AW [id number]) Balance Tests Single Limb Standing Single Limb- Right 3 sec with fingertip support on wall Single Limb- Left 5 sec with fingertip support on wall PT-OP-F Manual Assessment Start: 10/06/21 08:39 Freq: Status: Active Protocol: Document 10/07/21 11:15 AW (Rec: 10/07/21 13:44 AW [id number]) Manual Assessments Soft Tissue Assessment Soft Tissue Mobility Assessment Severely limited internal rotation in bilateral hips. TTP at bilateral greater trochanters, deep external rotators, and gluteal region PT-OP-G Mobility & Gait Start: 10/06/21 08:39 Freq: Status: Active Protocol: Document 10/07/21 11:15 AW (Rec: 10/07/21 16:23 AW [id number]) OP Mobility Evaluation Bed Mobility Rolling Difficult and painful rolling Supine to and from Sit Increased time and cues needed for log roll Transfers Sit to Stand Definite need for use of hands OP Gait Assessment Comments Gait Comments Pt ambulates independently with lateral lean in ipsilateral stance, wide base of support, decreased RLE stance time, reduced heel strike and weak toe off. Generally unsteady. PT-OP-H Neuro Start: 10/06/21 08:39 Freq: Status: Active Protocol: Document 10/07/21 11:15 AW (Rec: 10/07/21 16:23 AW [id number]) Sensation Evaluation Gross Sensation Gross Sensation Left LE Impaired,Right LE Impaired Comments Summary Comments Pain and numbness in buttocks and posterolateral thigh, lateral calf. Right more significantly affected than left. Deep Tendon Reflex & Clonus Assessment Deep Tendon Reflex Bicep Deep Tendon Reflex 2+ Normal Achilles Deep Tendon Reflex 1+ Diminished Patellar Deep Tendon Reflex 2+ Normal PT-OP-J Posture/Palpation/Skin Start: 10/06/21 08:39 Freq: Status: Active Protocol: Document 10/07/21 11:15 AW (Rec: 10/07/21 16:23 AW [id number]) Posture Evaluation Comments Posture Comments Flat lumbar spine with hinge at L4-5. Extension severely limited. Decreased weightbearing RLE in static stance and in gait Skin Assessment Incisional Assessment Incision Appearance/Comments Left lumpectomy scar with significantly limited mobility . PT-OP-K Range of Motion Start: 10/06/21 08:39 Freq: Status: Active Protocol: Document 10/07/21 11:15 AW (Rec: 10/08/21 15:10 AW [id number]) Cervical Spine Range of Motion Cervical Spine Active Testing Position Sitting Flexion 45 Extension 25 Rotation Left 40 Rotation Right 40 Lateral Flexion Left 20 Lateral Flexion Right 15 ROM Limitations Soft Tissue Tightness,Pain Comments Lateral flexion limited by increased tone in upper traps bilaterally Lumbar Spine Range of Motion Lumbar Spine Active Testing Position Standing Comments Pt is able to bend forward with fingertips to within 8 from floor. Positive [place] sign. Lateral flexion severely limited and pt can only slide fingertips ~3 inches toward lateral knee. Shoulder Goniometric Range of Motion Shoulder Right Active Testing Position Sitting Flexion 140 Abduction 135 External Rotation at 0 degrees Abduction 50 Internal Rotation Behind Back (text) T10 Left Active Testing Position Sitting Flexion 140 Abduction 137 External Rotation at 0 degrees Abduction 55 Internal Rotation Behind Back (text) T12 Hip Goniometric Range of Motion Hip bilat Testing Position Supine Comments Internal rotation severely limited and end-range PROM does reproduce pain PT-OP-L Special Tests Start: 10/06/21 08:39 Freq: Status: Active Protocol: Document 10/07/21 11:15 AW (Rec: 10/07/21 16:23 AW [id number]) Special Tests Lumbar Spine Special Tests Slump Test Results positive for pain, numbness, tingling RLE 2nd most provocative position PT-OP-M Strength Start: 10/06/21 08:39 Freq: Status: Active Protocol: Document 10/07/21 11:15 AW (Rec: 10/07/21 16:23 AW [id number]) Hip Strength Hip Manual Muscle Testing Right Flexion (L2) 4- Good- Extension (S1) 3 Fair Abduction 3 Fair Left Flexion (L2) 4 Good Extension (S1) 3+ Fair+ Abduction 3+ Fair+ Knee Strength Knee Manual Muscle Testing bilat Flexion (S2) 4 Good Extension (L3) 4 Good Ankle/Foot Strength Ankle and Foot Manual Muscle Testing bilat Dorsiflexion (L4) 4 Good Comments Pt unable to complete two single leg heel lifts with good elevation. Toe Strength Toe Manual Muscle Testing Great Toe Extension 4+ Good+ PT-OP-Q Treatments Start: 10/06/21 08:39 Freq: Status: Active Protocol: Document 11/05/21 11:01 AW (Rec: 11/05/21 12:12 AW [id number]) Cardio Equipment Recumbent Stepper (Sci-Fit) Duration (Minutes) 6 Resistance 2 Seat Position 8 Therapeutic Exercises Supine Exercises Pelvic Tilts Supine Exercise Name with BKFO Equipment Used nylon strap under L/S for tactile feedback Reps/Minutes 5x 5SH Comments HEP SLR Supine Exercise Name straight leg raise Side bilateral Reps/Minutes x8 Comments cues to use core- some pain through R leg this session LTR Supine Exercise Name lower trunk rotation Side bilateral Reps/Minutes [id number] Bridges Side bilateral Reps/Minutes x10 Comments cued heel drive Standing Exercises Pec stretch Standing Exercise Name doorway pec stretch Side bilateral Reps/Minutes 10x Comments reviewed HEP; arms <90 deg abduction for pain free range Manual Therapy Treatment Soft Tissue Mobilization Pecs Body Location L pec mm and scar mobs Mobilization Type Myofascial Release,Sustained Pressure,Trigger Point Release Intensity/Depth Moderate Body Position Hooklying Comments w/ lumbar hotpack right hip Body Location glutes, iliacus Mobilization Type Strumming,Sustained Pressure, Trigger Point Release Intensity/Depth Moderate Body Position Sidelying Self-Care/Home Management Treatment Education Other Education Added to HEP: BKFO with PPT. PT-OP-R Modalities Start: 10/06/21 08:39 Freq: Status: Active Protocol: Document 11/05/21 11:01 AW (Rec: 11/05/21 12:12 AW [id number]) Hot Pack/Cold Pack Treatment Hot Pack Location lumbar Patient Position Hooklying Treatment Duration (minutes) 15 Patient Tolerance Good Comments during STM to L pec/scar PT-OP-S Aquatic Treatment Start: 10/06/21 08:39 Freq: Status: Active Protocol: Document 11/11/21 14:44 LJ (Rec: 11/11/21 14:52 LJ [id number]) Aquatics Treatment Pool Entry/Exit Pool Entry/Exit Method Stairs Assistance Independent Water Walking Tandem Gait Water Level Chest Level [place] March Water Level Chest Level Level of Assistance Verbal Cues Marching Water Level Chest Level Comments breaststroke arms Backwards Water Level Chest Level Comments breaststroke arms Forwards Water Level Chest Level Comments 1 laps with paddles for stretch Lower Extremity Exercises squats Details at wall Reps/Duration 10 Comments cueing for form 4 way hip Details at wall Body Position Standing Water Level Chest Level Reps/Duration 10 each B Comments cues for posture and core engagement Lower Extremity Stretches free the hip Details at wall Body Position Standing Reps/Duration 10 B gastroc/soleus Details at wall Body Position Standing Reps/Duration 2 x 30 B HS Details on stairs Body Position Standing Reps/Duration 2 x 30 B hip flexors Body Position Standing Reps/Duration 2 x 30 B Upper Extremity Exercises corner stretch Body Position Standing Reps/Duration 45 sec x2 fl/ext/ab/ad Details braced at wall Body Position Sitting Reps/Duration 10 B each Spinal Exercises BB pull down Details at wall Body Position Sitting Water Level Neck Level Reps/Duration 10 fwd, L side, R side Comments cues for posture trunk rotation Details at wall Body Position Sitting Water Level Neck Level Reps/Duration 10 Comments emphasize pelvic tilt; UEs flexed to 90 degrees [place] Activities [place] Activities Bicycle,Bicycle Backwards, Cross Country,Running,Hip Abduction/Adduction Equipment lg belt, #2 wts, M BBs Duration 15 Comments gentle PT-OP-T Assessment and Plan Start: 10/06/21 08:39 Freq: Status: Active Protocol: Document 11/11/21 14:44 [id number] (Rec: 11/11/21 14:52 [id number]) Physical Therapy Assessment Goals Three Impairment strength Short Term Goal (STG) Pt will improve bilateral hip strength to 4/5 all planes for improved stability in gait STG Duration 6 weeks - 11/18/21 Refractory Mixer Goal (LTG) Pt will complete 10 reps on 30 -second sit to stand test without use of upper extremities as a measure of improved BLE strength LTG Duration 12 weeks - 12/30/21 Two Impairment standing and walking tolerance Short Term Goal (STG) Pt will stand 20 minutes without increase in baseline pain to improve her ability to cook a simple meal for herself. STG Duration 6 weeks - 11/18/21 Longterm Goal (LTG) Pt will walk for 30 minutes without increase in baseline pain to improve her ability to participate in a self- directed walking program. LTG Duration 12 weeks - 12/30/21 One Impairment lacks HEP Short Term Goal (STG) Pt will be instructed in HEP for pain management, ROM, and core stabilization to support therapy services provided in clinic. STG Duration 6 weeks - 11/18/21 Longterm Goal (LTG) Pt will be independent with HEP for pain management, strength, and balance to sustain gains made in therapy. LTG Duration 12 weeks - 12/30/21 Assessment Summary Assessment Pt demonstrated good posture and coordination with all exercises. She is motivated to continue exercising on her own at the pool. She remained at the pool for another 30 min past therapy to continue walking exercises. Physical Therapy Plan Frequency and Duration Frequency of Treatment 2x/Week Duration of Treatment 12 weeks Plan of Care Start Date 10/07/21 Plan of Care End Date 12/30/21 Therapeutic Interventions Therapeutic Interventions Aquatic Therapy,Balance Training,Gait Training,Home Exercise Program,Joint Mobilizations,Lymphedema Management,Manual Therapy, Neuromuscular Re-education, Self-Care/Home Management,Soft Tissue Mobilization,Taping, Therapeutic Activities, Therapeutic Exercises Modalities Cold Pack/Ice Massage,Electric Stimulation,Hot Packs Next Visit Focus/Plan Next Note Type Treatment Note Next Visit Plan [place]: continue reviewing HEP ( new HEP pec stretch & supine sciatic nerve glide), STM to R glutes & iliacus; L pec/scar mobs. Pool: Progress as tolerated for overall conditioning and strengthening.
--- NOTE | 2021-11-12 12:15 | PT.OTN ---
Current Diagnoses Malignant neoplasm of unspecified site of unspecified female breast (11/12/21) Lumbago with sciatica, unspecified side (11/12/21) Difficulty in walking, not elsewhere classified (11/12/21) Abnormal posture (11/12/21) Estrogen receptor positive status [ER+] (11/12/21) Physical Therapy Treatment Note PT-OP-A Visit Information Start: 10/06/21 08:39 Freq: Status: Active Protocol: Document 11/12/21 11:19 AW (Rec: 11/12/21 12:15 AW [id number]) Out-Patient Physical Therapy Visit Information Visit Information Visit Type Treatment Note Visit Start Time 11:15 Visit Stop Time 12:15 Total Visit Minutes 60 Visit Number 8 Number of MANUFA[employer]ING [employer] Visits 0 Evaluation Information Evaluation Date 10/07/21 Precautions Precautions osteopenia PT-OP-B Current Condition Start: 10/06/21 08:39 Freq: Status: Active Protocol: Document 10/07/21 11:15 AW (Rec: 10/06/21 08:45 AW [id number]) Current Condition History of Current Condition Onset Date chronic - at least 3 years for back and at least 3 months for shoulders Current Complaints back and leg pain; painful and tight shoulders History of Current Condition 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 Her mother had very limited mobility in the last three years and Matilda was assisting with lots of heavy transfers. She believes her back pain started around that time. She wore a back brace for support at times but isn't sure it helped much. She now has pain that starts in her low back and radiates into buttock and lateral thigh and lateral calf . It is worse on the right but present bilaterally. She has numbness in similar distribution. Pt takes [place] ~ every other day when pain gets very bad. Smoking marijuana helps distract from her pain. 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 She has completed adjuvant radiation therapy as of August. She will start anastrozole soon and is concerned about reductions in estrogen and estradiol. Since cancer treatment, she has grown aware of tight and painful shoulders bilaterally (left worse than right) and reports painful lumps on the left side under breast tissue. Scar tissue seems tight and restricts movement. Recent nuc med bone scan was negative for metastasis. Matilda lives alone since the of her mother. She depends on her logan. She is considering a cancer support group and has good friends. Prior Treatments and Tests - Chiropractic - Nuc med bone scan September 2021 with no evidence of metastasis. - Lumbar MRI 2018: Lower lumbar spine degenerative changes are seen, which are most prominent at the L5-S1 level. - Cervical MRI 2018: Multilevel disc bulges. Spinal stenosis is present most notable at C5-6 secondary to disc bulge. Multiple foraminal narrowing most notable at C5- 6 secondary to uncovertebral arthropathy. Treatment Goals Patient/Caregiver Goals More walking, more exercise, possibly join a gym. Has exercise bike and some weights at home. Lift without pain. Personal Factors Other Personal Factors That May Effect a fib, BMI 37, chronic low Therapy/Recovery back pain PT-OP-C Subjective Start: 10/06/21 08:39 Freq: Status: Active Protocol: Document 11/12/21 11:19 AW (Rec: 11/12/21 12:15 AW [id number]) OP-PT Subjective Patient Comments Patient Comments Pt reports feeling good about upping her activity level. Still having some back pain at night. Patient Reported Progress Improving PT-OP-D Balance Start: 10/06/21 08:39 Freq: Status: Active Protocol: Document 10/07/21 11:15 AW (Rec: 10/07/21 13:41 AW [id number]) Balance Tests Single Limb Standing Single Limb- Right 3 sec with fingertip support on wall Single Limb- Left 5 sec with fingertip support on wall PT-OP-F Manual Assessment Start: 10/06/21 08:39 Freq: Status: Active Protocol: Document 10/07/21 11:15 AW (Rec: 10/07/21 13:44 AW [id number]) Manual Assessments Soft Tissue Assessment Soft Tissue Mobility Assessment Severely limited internal rotation in bilateral hips. TTP at bilateral greater trochanters, deep external rotators, and gluteal region PT-OP-G Mobility & Gait Start: 10/06/21 08:39 Freq: Status: Active Protocol: Document 10/07/21 11:15 AW (Rec: 10/07/21 16:23 AW [id number]) OP Mobility Evaluation Bed Mobility Rolling Difficult and painful rolling Supine to and from Sit Increased time and cues needed for log roll Transfers Sit to Stand Definite need for use of hands OP Gait Assessment Comments Gait Comments Pt ambulates independently with lateral lean in ipsilateral stance, wide base of support, decreased RLE stance time, reduced heel strike and weak toe off. Generally unsteady. PT-OP-H Neuro Start: 10/06/21 08:39 Freq: Status: Active Protocol: Document 10/07/21 11:15 AW (Rec: 10/07/21 16:23 AW [id number]) Sensation Evaluation Gross Sensation Gross Sensation Left LE Impaired,Right LE Impaired Comments Summary Comments Pain and numbness in buttocks and posterolateral thigh, lateral calf. Right more significantly affected than left. Deep Tendon Reflex & Clonus Assessment Deep Tendon Reflex Bicep Deep Tendon Reflex 2+ Normal Achilles Deep Tendon Reflex 1+ Diminished Patellar Deep Tendon Reflex 2+ Normal PT-OP-J Posture/Palpation/Skin Start: 10/06/21 08:39 Freq: Status: Active Protocol: Document 10/07/21 11:15 AW (Rec: 10/07/21 16:23 AW [id number]) Posture Evaluation Comments Posture Comments Flat lumbar spine with hinge at L4-5. Extension severely limited. Decreased weightbearing RLE in static stance and in gait Skin Assessment Incisional Assessment Incision Appearance/Comments Left lumpectomy scar with significantly limited mobility . PT-OP-K Range of Motion Start: 10/06/21 08:39 Freq: Status: Active Protocol: Document 10/07/21 11:15 AW (Rec: 10/08/21 15:10 AW [id number]) Cervical Spine Range of Motion Cervical Spine Active Testing Position Sitting Flexion 45 Extension 25 Rotation Left 40 Rotation Right 40 Lateral Flexion Left 20 Lateral Flexion Right 15 ROM Limitations Soft Tissue Tightness,Pain Comments Lateral flexion limited by increased tone in upper traps bilaterally Lumbar Spine Range of Motion Lumbar Spine Active Testing Position Standing Comments Pt is able to bend forward with fingertips to within 8 from floor. Positive [place] sign. Lateral flexion severely limited and pt can only slide fingertips ~3 inches toward lateral knee. Shoulder Goniometric Range of Motion Shoulder Right Active Testing Position Sitting Flexion 140 Abduction 135 External Rotation at 0 degrees Abduction 50 Internal Rotation Behind Back (text) T10 Left Active Testing Position Sitting Flexion 140 Abduction 137 External Rotation at 0 degrees Abduction 55 Internal Rotation Behind Back (text) T12 Hip Goniometric Range of Motion Hip bilat Testing Position Supine Comments Internal rotation severely limited and end-range PROM does reproduce pain PT-OP-L Special Tests Start: 10/06/21 08:39 Freq: Status: Active Protocol: Document 10/07/21 11:15 AW (Rec: 10/07/21 16:23 AW [id number]) Special Tests Lumbar Spine Special Tests Slump Test Results positive for pain, numbness, tingling RLE 2nd most provocative position PT-OP-M Strength Start: 10/06/21 08:39 Freq: Status: Active Protocol: Document 10/07/21 11:15 AW (Rec: 10/07/21 16:23 AW [id number]) Hip Strength Hip Manual Muscle Testing Right Flexion (L2) 4- Good- Extension (S1) 3 Fair Abduction 3 Fair Left Flexion (L2) 4 Good Extension (S1) 3+ Fair+ Abduction 3+ Fair+ Knee Strength Knee Manual Muscle Testing bilat Flexion (S2) 4 Good Extension (L3) 4 Good Ankle/Foot Strength Ankle and Foot Manual Muscle Testing bilat Dorsiflexion (L4) 4 Good Comments Pt unable to complete two single leg heel lifts with good elevation. Toe Strength Toe Manual Muscle Testing Great Toe Extension 4+ Good+ PT-OP-Q Treatments Start: 10/06/21 08:39 Freq: Status: Active Protocol: Document 11/12/21 11:19 AW (Rec: 11/12/21 12:15 AW [id number]) Cardio Equipment Recumbent Elliptical (PlayerTakesAll) Duration (Minutes) 6 Resistance 2 Seat Position 8 Therapeutic Exercises Supine Exercises pelvic alignment series Supine Exercise Name pelvic alignment series Side bilateral Comments issued handout for HEP Pelvic Tilts Supine Exercise Name with BKFO Equipment Used nylon strap under L/S for tactile feedback Reps/Minutes 5x 5SH Comments HEP LTR Supine Exercise Name lower trunk rotation Side bilateral Reps/Minutes 04p35MM ER Supine Exercise Name hip ER Side bilateral Equipment Used lvl 2 TB Reps/Minutes x10 Manual Therapy Treatment Soft Tissue Mobilization right hip Body Location glutes, iliacus Mobilization Type Strumming,Sustained Pressure, Trigger Point Release Intensity/Depth Moderate Body Position Prone PT-OP-R Modalities Start: 10/06/21 08:39 Freq: Status: Active Protocol: Document 11/05/21 11:01 AW (Rec: 11/05/21 12:12 AW [id number]) Hot Pack/Cold Pack Treatment Hot Pack Location lumbar Patient Position Hooklying Treatment Duration (minutes) 15 Patient Tolerance Good Comments during STM to L pec/scar PT-OP-S Aquatic Treatment Start: 10/06/21 08:39 Freq: Status: Active Protocol: Document 11/11/21 14:44 LJ (Rec: 11/11/21 14:52 LJ [id number]) Aquatics Treatment Pool Entry/Exit Pool Entry/Exit Method Stairs Assistance Independent Water Walking Tandem Gait Water Level Chest Level [place] March Water Level Chest Level Level of Assistance Verbal Cues Marching Water Level Chest Level Comments breaststroke arms Backwards Water Level Chest Level Comments breaststroke arms Forwards Water Level Chest Level Comments 1 laps with paddles for stretch Lower Extremity Exercises squats Details at wall Reps/Duration 10 Comments cueing for form 4 way hip Details at wall Body Position Standing Water Level Chest Level Reps/Duration 10 each B Comments cues for posture and core engagement Lower Extremity Stretches free the hip Details at wall Body Position Standing Reps/Duration 10 B gastroc/soleus Details at wall Body Position Standing Reps/Duration 2 x 30 B HS Details on stairs Body Position Standing Reps/Duration 2 x 30 B hip flexors Body Position Standing Reps/Duration 2 x 30 B Upper Extremity Exercises corner stretch Body Position Standing Reps/Duration 45 sec x2 fl/ext/ab/ad Details braced at wall Body Position Sitting Reps/Duration 10 B each Spinal Exercises BB pull down Details at wall Body Position Sitting Water Level Neck Level Reps/Duration 10 fwd, L side, R side Comments cues for posture trunk rotation Details at wall Body Position Sitting Water Level Neck Level Reps/Duration 10 Comments emphasize pelvic tilt; UEs flexed to 90 degrees [place] Activities [place] Activities Bicycle,Bicycle Backwards, Cross Country,Running,Hip Abduction/Adduction Equipment lg belt, #2 wts, M BBs Duration 15 Comments gentle PT-OP-T Assessment and Plan Start: 10/06/21 08:39 Freq: Status: Active Protocol: Document 11/12/21 11:19 AW (Rec: 11/12/21 12:15 AW [id number]) Physical Therapy Assessment Goals Three Impairment strength Short Term Goal (STG) Pt will improve bilateral hip strength to 4/5 all planes for improved stability in gait STG Duration 6 weeks - 11/18/21 Usp Goal (LTG) Pt will complete 10 reps on 30 -second sit to stand test without use of upper extremities as a measure of improved BLE strength LTG Duration 12 weeks - 12/30/21 Two Impairment standing and walking tolerance Short Term Goal (STG) Pt will stand 20 minutes without increase in baseline pain to improve her ability to cook a simple meal for herself. STG Duration 6 weeks - 11/18/21 Teletype Clerk Goal (LTG) Pt will walk for 30 minutes without increase in baseline pain to improve her ability to participate in a self- directed walking program. LTG Duration 12 weeks - 12/30/21 One Impairment lacks HEP Short Term Goal (STG) Pt will be instructed in HEP for pain management, ROM, and core stabilization to support therapy services provided in clinic. STG Duration 6 weeks - 11/18/21 Usp Goal (LTG) Pt will be independent with HEP for pain management, strength, and balance to sustain gains made in therapy. LTG Duration 12 weeks - 12/30/21 Assessment Summary Assessment Pt has increased her activity on land and in the pool and reports overall improvement in symptoms. She still has lateral right thigh numbness pain, lateral right hip pain consistent with trochanteric bursitis, and low back/SI pain that interrupt her sleep. Pt shows good effort with all activities and is highly motivated. Physical Therapy Plan Frequency and Duration Frequency of Treatment 2x/Week Duration of Treatment 12 weeks Plan of Care Start Date 10/07/21 Plan of Care End Date 12/30/21 Therapeutic Interventions Therapeutic Interventions Aquatic Therapy,Balance Training,Gait Training,Home Exercise Program,Joint Mobilizations,Lymphedema Management,Manual Therapy, Neuromuscular Re-education, Self-Care/Home Management,Soft Tissue Mobilization,Taping, Therapeutic Activities, Therapeutic Exercises Modalities Cold Pack/Ice Massage,Electric Stimulation,Hot Packs Next Visit Focus/Plan Next Note Type Progress Note Next Visit Plan Prog Note next land tx
--- NOTE | 2021-11-19 17:27 | PT.OTN ---
Current Diagnoses Malignant neoplasm of unspecified site of unspecified female breast (11/19/21) Lumbago with sciatica, unspecified side (11/19/21) Difficulty in walking, not elsewhere classified (11/19/21) Abnormal posture (11/19/21) Estrogen receptor positive status [ER+] (11/19/21) Physical Therapy Treatment Note PT-OP-A Visit Information Start: 10/06/21 08:39 Freq: Status: Active Protocol: Document 11/19/21 12:38 AW (Rec: 11/19/21 14:40 AW [id number]) Out-Patient Physical Therapy Visit Information Visit Information Visit Type Progress Note Visit Start Time 13:45 Visit Stop Time 14:40 Total Visit Minutes 55 Visit Number 9 Number of [employer] Visits 0 Evaluation Information Evaluation Date 10/07/21 Precautions Precautions osteopenia PT-OP-B Current Condition Start: 10/06/21 08:39 Freq: Status: Active Protocol: Document 10/07/21 11:15 AW (Rec: 10/06/21 08:45 AW [id number]) Current Condition History of Current Condition Onset Date chronic - at least 3 years for back and at least 3 months for shoulders Current Complaints back and leg pain; painful and tight shoulders History of Current Condition 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 Her mother had very limited mobility in the last three years and Matilda was assisting with lots of heavy transfers. She believes her back pain started around that time. She wore a back brace for support at times but isn't sure it helped much. She now has pain that starts in her low back and radiates into buttock and lateral thigh and lateral calf . It is worse on the right but present bilaterally. She has numbness in similar distribution. Pt takes [place] ~ every other day when pain gets very bad. Smoking marijuana helps distract from her pain. 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 She has completed adjuvant radiation therapy as of August. She will start anastrozole soon and is concerned about reductions in estrogen and estradiol. Since cancer treatment, she has grown aware of tight and painful shoulders bilaterally (left worse than right) and reports painful lumps on the left side under breast tissue. Scar tissue seems tight and restricts movement. Recent nuc med bone scan was negative for metastasis. Matilda lives alone since the of her mother. She depends on her logan. She is considering a cancer support group and has good friends. Prior Treatments and Tests - Chiropractic - Nuc med bone scan September 2021 with no evidence of metastasis. - Lumbar MRI 2018: Lower lumbar spine degenerative changes are seen, which are most prominent at the L5-S1 level. - Cervical MRI 2018: Multilevel disc bulges. Spinal stenosis is present most notable at C5-6 secondary to disc bulge. Multiple foraminal narrowing most notable at C5- 6 secondary to uncovertebral arthropathy. Treatment Goals Patient/Caregiver Goals More walking, more exercise, possibly join a gym. Has exercise bike and some weights at home. Lift without pain. Personal Factors Other Personal Factors That May Effect a fib, BMI 37, chronic low Therapy/Recovery back pain PT-OP-C Subjective Start: 10/06/21 08:39 Freq: Status: Active Protocol: Document 11/19/21 12:38 AW (Rec: 11/19/21 14:40 AW [id number]) OP-PT Subjective Patient Comments Patient Comments Pt has been to the pool twice this week and is doing good, tiring work there. Still has lateral thigh burning/numbness Patient Reported Progress Improving PT-OP-D Balance Start: 10/06/21 08:39 Freq: Status: Active Protocol: Document 10/07/21 11:15 AW (Rec: 10/07/21 13:41 AW [id number]) Balance Tests Single Limb Standing Single Limb- Right 3 sec with fingertip support on wall Single Limb- Left 5 sec with fingertip support on wall PT-OP-F Manual Assessment Start: 10/06/21 08:39 Freq: Status: Active Protocol: Document 10/07/21 11:15 AW (Rec: 10/07/21 13:44 AW [id number]) Manual Assessments Soft Tissue Assessment Soft Tissue Mobility Assessment Severely limited internal rotation in bilateral hips. TTP at bilateral greater trochanters, deep external rotators, and gluteal region PT-OP-G Mobility & Gait Start: 10/06/21 08:39 Freq: Status: Active Protocol: Document 10/07/21 11:15 AW (Rec: 10/07/21 16:23 AW [id number]) OP Mobility Evaluation Bed Mobility Rolling Difficult and painful rolling Supine to and from Sit Increased time and cues needed for log roll Transfers Sit to Stand Definite need for use of hands OP Gait Assessment Comments Gait Comments Pt ambulates independently with lateral lean in ipsilateral stance, wide base of support, decreased RLE stance time, reduced heel strike and weak toe off. Generally unsteady. PT-OP-H Neuro Start: 10/06/21 08:39 Freq: Status: Active Protocol: Document 10/07/21 11:15 AW (Rec: 10/07/21 16:23 AW [id number]) Sensation Evaluation Gross Sensation Gross Sensation Left LE Impaired,Right LE Impaired Comments Summary Comments Pain and numbness in buttocks and posterolateral thigh, lateral calf. Right more significantly affected than left. Deep Tendon Reflex & Clonus Assessment Deep Tendon Reflex Bicep Deep Tendon Reflex 2+ Normal Achilles Deep Tendon Reflex 1+ Diminished Patellar Deep Tendon Reflex 2+ Normal PT-OP-J Posture/Palpation/Skin Start: 10/06/21 08:39 Freq: Status: Active Protocol: Document 10/07/21 11:15 AW (Rec: 10/07/21 16:23 AW [id number]) Posture Evaluation Comments Posture Comments Flat lumbar spine with hinge at L4-5. Extension severely limited. Decreased weightbearing RLE in static stance and in gait Skin Assessment Incisional Assessment Incision Appearance/Comments Left lumpectomy scar with significantly limited mobility . PT-OP-K Range of Motion Start: 10/06/21 08:39 Freq: Status: Active Protocol: Document 10/07/21 11:15 AW (Rec: 10/08/21 15:10 AW [id number]) Cervical Spine Range of Motion Cervical Spine Active Testing Position Sitting Flexion 45 Extension 25 Rotation Left 40 Rotation Right 40 Lateral Flexion Left 20 Lateral Flexion Right 15 ROM Limitations Soft Tissue Tightness,Pain Comments Lateral flexion limited by increased tone in upper traps bilaterally Lumbar Spine Range of Motion Lumbar Spine Active Testing Position Standing Comments Pt is able to bend forward with fingertips to within 8 from floor. Positive [place] sign. Lateral flexion severely limited and pt can only slide fingertips ~3 inches toward lateral knee. Shoulder Goniometric Range of Motion Shoulder Right Active Testing Position Sitting Flexion 140 Abduction 135 External Rotation at 0 degrees Abduction 50 Internal Rotation Behind Back (text) T10 Left Active Testing Position Sitting Flexion 140 Abduction 137 External Rotation at 0 degrees Abduction 55 Internal Rotation Behind Back (text) T12 Hip Goniometric Range of Motion Hip bilat Testing Position Supine Comments Internal rotation severely limited and end-range PROM does reproduce pain PT-OP-L Special Tests Start: 10/06/21 08:39 Freq: Status: Active Protocol: Document 10/07/21 11:15 AW (Rec: 10/07/21 16:23 AW [id number]) Special Tests Lumbar Spine Special Tests Slump Test Results positive for pain, numbness, tingling RLE 2nd most provocative position PT-OP-M Strength Start: 10/06/21 08:39 Freq: Status: Active Protocol: Document 10/07/21 11:15 AW (Rec: 10/07/21 16:23 AW [id number]) Hip Strength Hip Manual Muscle Testing Right Flexion (L2) 4- Good- Extension (S1) 3 Fair Abduction 3 Fair Left Flexion (L2) 4 Good Extension (S1) 3+ Fair+ Abduction 3+ Fair+ Knee Strength Knee Manual Muscle Testing bilat Flexion (S2) 4 Good Extension (L3) 4 Good Ankle/Foot Strength Ankle and Foot Manual Muscle Testing bilat Dorsiflexion (L4) 4 Good Comments Pt unable to complete two single leg heel lifts with good elevation. Toe Strength Toe Manual Muscle Testing Great Toe Extension 4+ Good+ PT-OP-Q Treatments Start: 10/06/21 08:39 Freq: Status: Active Protocol: Document 11/19/21 12:38 AW (Rec: 11/19/21 14:40 AW [id number]) Therapeutic Exercises Supine Exercises Pelvic Tilts Supine Exercise Name with BKFO and single leg march Reps/Minutes 5x 5SH Comments HEP LTR Supine Exercise Name lower trunk rotation Side bilateral Reps/Minutes [id number] Bridges Side bilateral Reps/Minutes x10 Comments cued heel drive Other Exercises sit to stand Other Exercise Name sit to stand Equipment Used tx mat lowest position Reps/Minutes 2x10 Comments HEP Manual Therapy Treatment Soft Tissue Mobilization right hip Body Location glutes, lateral thigh Mobilization Type Strumming,Sustained Pressure, Trigger Point Release Intensity/Depth Moderate Body Position Prone Comments pronte and sidelying but pt tolerates SL poorly Self-Care/Home Management Treatment Education Patient Education Home Exercise Program Other Education Extra time spent on sit to stand technique and execution. Added to HEP. PT-OP-R Modalities Start: 10/06/21 08:39 Freq: Status: Active Protocol: Document 11/19/21 12:38 AW (Rec: 11/19/21 14:40 AW [id number]) Hot Pack/Cold Pack Treatment Hot Pack Location lumbar Patient Position Hooklying Treatment Duration (minutes) 15 Patient Tolerance Good Comments end of tx PT-OP-S Aquatic Treatment Start: 10/06/21 08:39 Freq: Status: Active Protocol: Document 11/11/21 14:44 LJ (Rec: 11/11/21 14:52 LJ [id number]) Aquatics Treatment Pool Entry/Exit Pool Entry/Exit Method Stairs Assistance Independent Water Walking Tandem Gait Water Level Chest Level Moira March Water Level Chest Level Level of Assistance Verbal Cues Marching Water Level Chest Level Comments breaststroke arms Backwards Water Level Chest Level Comments breaststroke arms Forwards Water Level Chest Level Comments 1 laps with paddles for stretch Lower Extremity Exercises squats Details at wall Reps/Duration 10 Comments cueing for form 4 way hip Details at wall Body Position Standing Water Level Chest Level Reps/Duration 10 each B Comments cues for posture and core engagement Lower Extremity Stretches free the hip Details at wall Body Position Standing Reps/Duration 10 B gastroc/soleus Details at wall Body Position Standing Reps/Duration 2 x 30 B HS Details on stairs Body Position Standing Reps/Duration 2 x 30 B hip flexors Body Position Standing Reps/Duration 2 x 30 B Upper Extremity Exercises corner stretch Body Position Standing Reps/Duration 45 sec x2 fl/ext/ab/ad Details braced at wall Body Position Sitting Reps/Duration 10 B each Spinal Exercises BB pull down Details at wall Body Position Sitting Water Level Neck Level Reps/Duration 10 fwd, L side, R side Comments cues for posture trunk rotation Details at wall Body Position Sitting Water Level Neck Level Reps/Duration 10 Comments emphasize pelvic tilt; UEs flexed to 90 degrees [place] Activities [place] Activities Bicycle,Bicycle Backwards, Cross Country,Running,Hip Abduction/Adduction Equipment lg belt, #2 wts, M BBs Duration 15 Comments gentle PT-OP-T Assessment and Plan Start: 10/06/21 08:39 Freq: Status: Active Protocol: Document 11/19/21 12:38 AW (Rec: 11/19/21 14:40 AW [id number]) Physical Therapy Assessment Goals Three Impairment strength Short Term Goal (STG) Pt will improve bilateral hip strength to 4/5 all planes for improved stability in gait STG Duration 6 weeks - 11/18/21 Staff Anesthetist Goal (LTG) Pt will complete 10 reps on 30 -second sit to stand test without use of upper extremities as a measure of improved BLE strength LTG Duration 12 weeks - 12/30/21 Two Impairment standing and walking tolerance Short Term Goal (STG) Pt will stand 20 minutes without increase in baseline pain to improve her ability to cook a simple meal for herself. 11/19/21 GOAL MET STG Duration 6 weeks - 11/18/21 [facility] Goal (LTG) Pt will walk for 30 minutes without increase in baseline pain to improve her ability to participate in a self- directed walking program. LTG Duration 12 weeks - 12/30/21 One Impairment lacks HEP Short Term Goal (STG) Pt will be instructed in HEP for pain management, ROM, and core stabilization to support therapy services provided in clinic. 11/19/21 - GOAL MET STG Duration 6 weeks - 11/18/21 [facility] Goal (LTG) Pt will be independent with HEP for pain management, strength, and balance to sustain gains made in therapy. LTG Duration 12 weeks - 12/30/21 Progress Towards Goals Progress Towards Goals Progressing Toward Goals Progress Comments Pt has progressed with bilateral hip strength and standing tolerance. She continues to report lateral right thigh burning/numbness. Assessment Summary Assessment Pt tolerated STM and exercise today. She has increased her activity level significantly since starting therapy and her activity tolerance is keeping pace. Physical Therapy Plan Frequency and Duration Frequency of Treatment 2x/Week Duration of Treatment 12 weeks Plan of Care Start Date 10/07/21 Plan of Care End Date 12/30/21 Therapeutic Interventions Therapeutic Interventions Aquatic Therapy,Balance Training,Gait Training,Home Exercise Program,Joint Mobilizations,Lymphedema Management,Manual Therapy, Neuromuscular Re-education, Self-Care/Home Management,Soft Tissue Mobilization,Taping, Therapeutic Activities, Therapeutic Exercises Modalities Cold Pack/Ice Massage,Electric Stimulation,Hot Packs Next Visit Focus/Plan Next Note Type Treatment Note Next Visit Plan Land: continue reviewing HEP ( new HEP pec stretch & supine sciatic nerve glide), STM to R glutes & iliacus; L pec/scar mobs.
--- NOTE | 2021-11-25 12:39 | PT.OTN ---
Current Diagnoses Malignant neoplasm of unspecified site of unspecified female breast (11/25/21) Lumbago with sciatica, unspecified side (11/25/21) Difficulty in walking, not elsewhere classified (11/25/21) Abnormal posture (11/25/21) Estrogen receptor positive status [ER+] (11/25/21) Physical Therapy Treatment Note PT-OP-A Visit Information Start: 10/06/21 08:39 Freq: Status: Active Protocol: Document 11/25/21 08:49 AW (Rec: 11/25/21 10:31 AW [id number]) Out-Patient Physical Therapy Visit Information Visit Information Visit Type Treatment Note Visit Start Time 09:45 Visit Number 10 Number of [employer]ENT Visits 0 Evaluation Information Evaluation Date 10/07/21 Precautions Precautions osteopenia PT-OP-B Current Condition Start: 10/06/21 08:39 Freq: Status: Active Protocol: Document 10/07/21 11:15 AW (Rec: 10/06/21 08:45 AW [id number]) Current Condition History of Current Condition Onset Date chronic - at least 3 years for back and at least 3 months for shoulders Current Complaints back and leg pain; painful and tight shoulders History of Current Condition 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 Her mother had very limited mobility in the last three years and Matilda was assisting with lots of heavy transfers. She believes her back pain started around that time. She wore a back brace for support at times but isn't sure it helped much. She now has pain that starts in her low back and radiates into buttock and lateral thigh and lateral calf . It is worse on the right but present bilaterally. She has numbness in similar distribution. Pt takes [place] ~ every other day when pain gets very bad. Smoking marijuana helps distract from her pain. 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 She has completed adjuvant radiation therapy as of August. She will start anastrozole soon and is concerned about reductions in estrogen and estradiol. Since cancer treatment, she has grown aware of tight and painful shoulders bilaterally (left worse than right) and reports painful lumps on the left side under breast tissue. Scar tissue seems tight and restricts movement. Recent nuc med bone scan was negative for metastasis. Matilda lives alone since the of her mother. She depends on her logan. She is considering a cancer support group and has good friends. Prior Treatments and Tests - Chiropractic - Nuc med bone scan September 2021 with no evidence of metastasis. - Lumbar MRI 2018: Lower lumbar spine degenerative changes are seen, which are most prominent at the L5-S1 level. - Cervical MRI 2018: Multilevel disc bulges. Spinal stenosis is present most notable at C5-6 secondary to disc bulge. Multiple foraminal narrowing most notable at C5- 6 secondary to uncovertebral arthropathy. Treatment Goals Patient/Caregiver Goals More walking, more exercise, possibly join a gym. Has exercise bike and some weights at home. Lift without pain. Personal Factors Other Personal Factors That May Effect a fib, BMI 37, chronic low Therapy/Recovery back pain PT-OP-C Subjective Start: 10/06/21 08:39 Freq: Status: Active Protocol: Document 11/25/21 08:49 AW (Rec: 11/25/21 10:31 AW [id number]) OP-PT Subjective Patient Comments Patient Comments I went to the pool once this week already. No major complaints today. Planning to start anastrozole soon. Patient Reported Progress Improving PT-OP-D Balance Start: 10/06/21 08:39 Freq: Status: Active Protocol: Document 10/07/21 11:15 AW (Rec: 10/07/21 13:41 AW [id number]) Balance Tests Single Limb Standing Single Limb- Right 3 sec with fingertip support on wall Single Limb- Left 5 sec with fingertip support on wall PT-OP-F Manual Assessment Start: 10/06/21 08:39 Freq: Status: Active Protocol: Document 10/07/21 11:15 AW (Rec: 10/07/21 13:44 AW [id number]) Manual Assessments Soft Tissue Assessment Soft Tissue Mobility Assessment Severely limited internal rotation in bilateral hips. TTP at bilateral greater trochanters, deep external rotators, and gluteal region PT-OP-G Mobility & Gait Start: 10/06/21 08:39 Freq: Status: Active Protocol: Document 10/07/21 11:15 AW (Rec: 10/07/21 16:23 AW [id number]) OP Mobility Evaluation Bed Mobility Rolling Difficult and painful rolling Supine to and from Sit Increased time and cues needed for log roll Transfers Sit to Stand Definite need for use of hands OP Gait Assessment Comments Gait Comments Pt ambulates independently with lateral lean in ipsilateral stance, wide base of support, decreased RLE stance time, reduced heel strike and weak toe off. Generally unsteady. PT-OP-H Neuro Start: 10/06/21 08:39 Freq: Status: Active Protocol: Document 10/07/21 11:15 AW (Rec: 10/07/21 16:23 AW [id number]) Sensation Evaluation Gross Sensation Gross Sensation Left LE Impaired,Right LE Impaired Comments Summary Comments Pain and numbness in buttocks and posterolateral thigh, lateral calf. Right more significantly affected than left. Deep Tendon Reflex & Clonus Assessment Deep Tendon Reflex Bicep Deep Tendon Reflex 2+ Normal Achilles Deep Tendon Reflex 1+ Diminished Patellar Deep Tendon Reflex 2+ Normal PT-OP-J Posture/Palpation/Skin Start: 10/06/21 08:39 Freq: Status: Active Protocol: Document 10/07/21 11:15 AW (Rec: 10/07/21 16:23 AW [id number]) Posture Evaluation Comments Posture Comments Flat lumbar spine with hinge at L4-5. Extension severely limited. Decreased weightbearing RLE in static stance and in gait Skin Assessment Incisional Assessment Incision Appearance/Comments Left lumpectomy scar with significantly limited mobility . PT-OP-K Range of Motion Start: 10/06/21 08:39 Freq: Status: Active Protocol: Document 10/07/21 11:15 AW (Rec: 10/08/21 15:10 AW [id number]) Cervical Spine Range of Motion Cervical Spine Active Testing Position Sitting Flexion 45 Extension 25 Rotation Left 40 Rotation Right 40 Lateral Flexion Left 20 Lateral Flexion Right 15 ROM Limitations Soft Tissue Tightness,Pain Comments Lateral flexion limited by increased tone in upper traps bilaterally Lumbar Spine Range of Motion Lumbar Spine Active Testing Position Standing Comments Pt is able to bend forward with fingertips to within 8 from floor. Positive [place] sign. Lateral flexion severely limited and pt can only slide fingertips ~3 inches toward lateral knee. Shoulder Goniometric Range of Motion Shoulder Right Active Testing Position Sitting Flexion 140 Abduction 135 External Rotation at 0 degrees Abduction 50 Internal Rotation Behind Back (text) T10 Left Active Testing Position Sitting Flexion 140 Abduction 137 External Rotation at 0 degrees Abduction 55 Internal Rotation Behind Back (text) T12 Hip Goniometric Range of Motion Hip bilat Testing Position Supine Comments Internal rotation severely limited and end-range PROM does reproduce pain PT-OP-L Special Tests Start: 10/06/21 08:39 Freq: Status: Active Protocol: Document 10/07/21 11:15 AW (Rec: 10/07/21 16:23 AW [id number]) Special Tests Lumbar Spine Special Tests Slump Test Results positive for pain, numbness, tingling RLE 2nd most provocative position PT-OP-M Strength Start: 10/06/21 08:39 Freq: Status: Active Protocol: Document 10/07/21 11:15 AW (Rec: 10/07/21 16:23 AW [id number]) Hip Strength Hip Manual Muscle Testing Right Flexion (L2) 4- Good- Extension (S1) 3 Fair Abduction 3 Fair Left Flexion (L2) 4 Good Extension (S1) 3+ Fair+ Abduction 3+ Fair+ Knee Strength Knee Manual Muscle Testing bilat Flexion (S2) 4 Good Extension (L3) 4 Good Ankle/Foot Strength Ankle and Foot Manual Muscle Testing bilat Dorsiflexion (L4) 4 Good Comments Pt unable to complete two single leg heel lifts with good elevation. Toe Strength Toe Manual Muscle Testing Great Toe Extension 4+ Good+ PT-OP-Q Treatments Start: 10/06/21 08:39 Freq: Status: Active Protocol: Document 11/25/21 08:49 AW (Rec: 11/25/21 10:31 AW [id number]) Cardio Equipment Recumbent Elliptical (Biodex) Duration (Minutes) 6 Resistance 5 Seat Position 8 Gym Equipment Therapeutic Ball pelvic tilt, circles Exercise Details pelvic tilt, circles Ball Size/Color 65 cm/green Body Position Sitting Comments Pt has difficulty disassociating pelvic from lumbar/trunk movement. Therapeutic Exercises Standing Exercises hip hike Standing Exercise Name hip hike Side bilateral Equipment Used 6 step Comments clinic only; no stair at home lateral band walk Standing Exercise Name lateral band walk Resistance yellow loop Reps/Minutes 10' lap x 4 Comments HEP Other Exercises sit to stand Other Exercise Name sit to stand Equipment Used green chair, band around knees to correct varus Reps/Minutes 2x10 Comments HEP Self-Care/Home Management Treatment Education Patient Education Home Exercise Program Other Education Added lateral band walk today PT-OP-R Modalities Start: 10/06/21 08:39 Freq: Status: Active Protocol: Document 11/19/21 12:38 AW (Rec: 11/19/21 14:40 AW [id number]) Hot Pack/Cold Pack Treatment Hot Pack Location lumbar Patient Position Hooklying Treatment Duration (minutes) 15 Patient Tolerance Good Comments end of tx PT-OP-S Aquatic Treatment Start: 10/06/21 08:39 Freq: Status: Active Protocol: Document 11/11/21 14:44 LJ (Rec: 11/11/21 14:52 LJ [id number]) Aquatics Treatment Pool Entry/Exit Pool Entry/Exit Method Stairs Assistance Independent Water Walking Tandem Gait Water Level Chest Level [place] March Water Level Chest Level Level of Assistance Verbal Cues Marching Water Level Chest Level Comments breaststroke arms Backwards Water Level Chest Level Comments breaststroke arms Forwards Water Level Chest Level Comments 1 laps with paddles for stretch Lower Extremity Exercises squats Details at wall Reps/Duration 10 Comments cueing for form 4 way hip Details at wall Body Position Standing Water Level Chest Level Reps/Duration 10 each B Comments cues for posture and core engagement Lower Extremity Stretches free the hip Details at wall Body Position Standing Reps/Duration 10 B gastroc/soleus Details at wall Body Position Standing Reps/Duration 2 x 30 B HS Details on stairs Body Position Standing Reps/Duration 2 x 30 B hip flexors Body Position Standing Reps/Duration 2 x 30 B Upper Extremity Exercises corner stretch Body Position Standing Reps/Duration 45 sec x2 fl/ext/ab/ad Details braced at wall Body Position Sitting Reps/Duration 10 B each Spinal Exercises BB pull down Details at wall Body Position Sitting Water Level Neck Level Reps/Duration 10 fwd, L side, R side Comments cues for posture trunk rotation Details at wall Body Position Sitting Water Level Neck Level Reps/Duration 10 Comments emphasize pelvic tilt; UEs flexed to 90 degrees Lena Activities Lena Activities Bicycle,Bicycle Backwards, Cross Country,Running,Hip Abduction/Adduction Equipment lg belt, #2 wts, M BBs Duration 15 Comments gentle PT-OP-T Assessment and Plan Start: 10/06/21 08:39 Freq: Status: Active Protocol: Document 11/25/21 08:49 AW (Rec: 11/25/21 10:31 AW [id number]) Physical Therapy Assessment Goals Three Impairment strength Short Term Goal (STG) Pt will improve bilateral hip strength to 4/5 all planes for improved stability in gait STG Duration 6 weeks - 11/18/21 Energy Professional Goal (LTG) Pt will complete 10 reps on 30 -second sit to stand test without use of upper extremities as a measure of improved BLE strength LTG Duration 12 weeks - 12/30/21 Two Impairment standing and walking tolerance Short Term Goal (STG) Pt will stand 20 minutes without increase in baseline pain to improve her ability to cook a simple meal for herself. 11/19/21 GOAL MET STG Duration 6 weeks - 11/18/21 Energy Professional Goal (LTG) Pt will walk for 30 minutes without increase in baseline pain to improve her ability to participate in a self- directed walking program. LTG Duration 12 weeks - 12/30/21 One Impairment lacks HEP Short Term Goal (STG) Pt will be instructed in HEP for pain management, ROM, and core stabilization to support therapy services provided in clinic. 11/19/21 - GOAL MET STG Duration 6 weeks - 11/18/21 Assisted Goal (LTG) Pt will be independent with HEP for pain management, strength, and balance to sustain gains made in therapy. LTG Duration 12 weeks - 12/30/21 Assessment Summary Assessment Pt tolerated increase in standing load today. No significant pain compaints. Continue aquatic and land- based therapy for further strengthening, pain management , and balance. Physical Therapy Plan Frequency and Duration Frequency of Treatment 2x/Week Duration of Treatment 12 weeks Plan of Care Start Date 10/07/21 Plan of Care End Date 12/30/21 Therapeutic Interventions Therapeutic Interventions Aquatic Therapy,Balance Training,Gait Training,Home Exercise Program,Joint Mobilizations,Lymphedema Management,Manual Therapy, Neuromuscular Re-education, Self-Care/Home Management,Soft Tissue Mobilization,Taping, Therapeutic Activities, Therapeutic Exercises Modalities Cold Pack/Ice Massage,Electric Stimulation,Hot Packs Next Visit Focus/Plan Next Note Type Treatment Note Next Visit Plan Land: Review HEP as needed. Consider standing core stab and postural education/stab.
--- NOTE | 2021-12-04 14:06 | PT.OTN ---
Current Diagnoses Malignant neoplasm of unspecified site of unspecified female breast (12/04/21) Lumbago with sciatica, unspecified side (12/04/21) Difficulty in walking, not elsewhere classified (12/04/21) Abnormal posture (12/04/21) Estrogen receptor positive status [ER+] (12/04/21) Physical Therapy Treatment Note PT-OP-A Visit Information Start: 10/06/21 08:39 Freq: Status: Active Protocol: Document 12/04/21 10:27 MA (Rec: 12/04/21 11:17 MA [id number]) Out-Patient Physical Therapy Visit Information Visit Information Visit Type Treatment Note Visit Start Time 10:30 Visit Stop Time 11:20 Total Visit Minutes 50 Visit Number 11 Number of LUMP INSPECTOR Visits 1 Precautions Precautions osteopenia PT-OP-B Current Condition Start: 10/06/21 08:39 Freq: Status: Active Protocol: Document 10/07/21 11:15 AW (Rec: 10/06/21 08:45 AW [id number]) Current Condition History of Current Condition Onset Date chronic - at least 3 years for back and at least 3 months for shoulders Current Complaints back and leg pain; painful and tight shoulders History of Current Condition 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 Her mother had very limited mobility in the last three years and Matilda was assisting with lots of heavy transfers. She believes her back pain started around that time. She wore a back brace for support at times but isn't sure it helped much. She now has pain that starts in her low back and radiates into buttock and lateral thigh and lateral calf . It is worse on the right but present bilaterally. She has numbness in similar distribution. Pt takes Valier ~ every other day when pain gets very bad. Smoking marijuana helps distract from her pain. 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 She has completed adjuvant radiation therapy as of August. She will start anastrozole soon and is concerned about reductions in estrogen and estradiol. Since cancer treatment, she has grown aware of tight and painful shoulders bilaterally (left worse than right) and reports painful lumps on the left side under breast tissue. Scar tissue seems tight and restricts movement. Recent nuc med bone scan was negative for metastasis. Matilda lives alone since the of her mother. She depends on her logan. She is considering a cancer support group and has good friends. Prior Treatments and Tests - Chiropractic - Nuc med bone scan September 2021 with no evidence of metastasis. - Lumbar MRI 2018: Lower lumbar spine degenerative changes are seen, which are most prominent at the L5-S1 level. - Cervical MRI 2018: Multilevel disc bulges. Spinal stenosis is present most notable at C5-6 secondary to disc bulge. Multiple foraminal narrowing most notable at C5- 6 secondary to uncovertebral arthropathy. Treatment Goals Patient/Caregiver Goals More walking, more exercise, possibly join a gym. Has exercise bike and some weights at home. Lift without pain. Personal Factors Other Personal Factors That May Effect a fib, BMI 37, chronic low Therapy/Recovery back pain PT-OP-C Subjective Start: 10/06/21 08:39 Freq: Status: Active Protocol: Document 12/04/21 10:27 MA (Rec: 12/04/21 11:17 MA [id number]) OP-PT Subjective Patient Comments Patient Comments Pt's new medication is making her feel tired and increasing her pain. PT-OP-D Balance Start: 10/06/21 08:39 Freq: Status: Active Protocol: Document 10/07/21 11:15 AW (Rec: 10/07/21 13:41 AW [id number]) Balance Tests Single Limb Standing Single Limb- Right 3 sec with fingertip support on wall Single Limb- Left 5 sec with fingertip support on wall PT-OP-F Manual Assessment Start: 10/06/21 08:39 Freq: Status: Active Protocol: Document 10/07/21 11:15 AW (Rec: 10/07/21 13:44 AW [id number]) Manual Assessments Soft Tissue Assessment Soft Tissue Mobility Assessment Severely limited internal rotation in bilateral hips. TTP at bilateral greater trochanters, deep external rotators, and gluteal region PT-OP-G Mobility & Gait Start: 10/06/21 08:39 Freq: Status: Active Protocol: Document 10/07/21 11:15 AW (Rec: 10/07/21 16:23 AW [id number]) OP Mobility Evaluation Bed Mobility Rolling Difficult and painful rolling Supine to and from Sit Increased time and cues needed for log roll Transfers Sit to Stand Definite need for use of hands OP Gait Assessment Comments Gait Comments Pt ambulates independently with lateral lean in ipsilateral stance, wide base of support, decreased RLE stance time, reduced heel strike and weak toe off. Generally unsteady. PT-OP-H Neuro Start: 10/06/21 08:39 Freq: Status: Active Protocol: Document 10/07/21 11:15 AW (Rec: 10/07/21 16:23 AW [id number]) Sensation Evaluation Gross Sensation Gross Sensation Left LE Impaired,Right LE Impaired Comments Summary Comments Pain and numbness in buttocks and posterolateral thigh, lateral calf. Right more significantly affected than left. Deep Tendon Reflex & Clonus Assessment Deep Tendon Reflex Bicep Deep Tendon Reflex 2+ Normal Achilles Deep Tendon Reflex 1+ Diminished Patellar Deep Tendon Reflex 2+ Normal PT-OP-J Posture/Palpation/Skin Start: 10/06/21 08:39 Freq: Status: Active Protocol: Document 10/07/21 11:15 AW (Rec: 10/07/21 16:23 AW [id number]) Posture Evaluation Comments Posture Comments Flat lumbar spine with hinge at L4-5. Extension severely limited. Decreased weightbearing RLE in static stance and in gait Skin Assessment Incisional Assessment Incision Appearance/Comments Left lumpectomy scar with significantly limited mobility . PT-OP-K Range of Motion Start: 10/06/21 08:39 Freq: Status: Active Protocol: Document 10/07/21 11:15 AW (Rec: 10/08/21 15:10 AW [id number]) Cervical Spine Range of Motion Cervical Spine Active Testing Position Sitting Flexion 45 Extension 25 Rotation Left 40 Rotation Right 40 Lateral Flexion Left 20 Lateral Flexion Right 15 ROM Limitations Soft Tissue Tightness,Pain Comments Lateral flexion limited by increased tone in upper traps bilaterally Lumbar Spine Range of Motion Lumbar Spine Active Testing Position Standing Comments Pt is able to bend forward with fingertips to within 8 from floor. Positive Danica sign. Lateral flexion severely limited and pt can only slide fingertips ~3 inches toward lateral knee. Shoulder Goniometric Range of Motion Shoulder Right Active Testing Position Sitting Flexion 140 Abduction 135 External Rotation at 0 degrees Abduction 50 Internal Rotation Behind Back (text) T10 Left Active Testing Position Sitting Flexion 140 Abduction 137 External Rotation at 0 degrees Abduction 55 Internal Rotation Behind Back (text) T12 Hip Goniometric Range of Motion Hip bilat Testing Position Supine Comments Internal rotation severely limited and end-range PROM does reproduce pain PT-OP-L Special Tests Start: 10/06/21 08:39 Freq: Status: Active Protocol: Document 10/07/21 11:15 AW (Rec: 10/07/21 16:23 AW [id number]) Special Tests Lumbar Spine Special Tests Slump Test Results positive for pain, numbness, tingling RLE 2nd most provocative position PT-OP-M Strength Start: 10/06/21 08:39 Freq: Status: Active Protocol: Document 10/07/21 11:15 AW (Rec: 10/07/21 16:23 AW [id number]) Hip Strength Hip Manual Muscle Testing Right Flexion (L2) 4- Good- Extension (S1) 3 Fair Abduction 3 Fair Left Flexion (L2) 4 Good Extension (S1) 3+ Fair+ Abduction 3+ Fair+ Knee Strength Knee Manual Muscle Testing bilat Flexion (S2) 4 Good Extension (L3) 4 Good Ankle/Foot Strength Ankle and Foot Manual Muscle Testing bilat Dorsiflexion (L4) 4 Good Comments Pt unable to complete two single leg heel lifts with good elevation. Toe Strength Toe Manual Muscle Testing Great Toe Extension 4+ Good+ PT-OP-Q Treatments Start: 10/06/21 08:39 Freq: Status: Active Protocol: Document 12/04/21 10:27 MA (Rec: 12/04/21 11:17 MA [id number]) Cardio Equipment Recumbent Elliptical (Pipefish) Duration (Minutes) 6 Resistance 5 Seat Position 8 Other pt requested decreasing resistance to 3 after 3 minutes Therapeutic Exercises Supine Exercises piriformis stretch Side bilateral Reps/Minutes 30 ea Comments in seated today Standing Exercises lateral band walk Standing Exercise Name lateral band walk Resistance yellow loop Reps/Minutes 10' lap x 4 Comments R side LBP while stepping today Other Exercises Child's Pose Other Exercise Name modified in standing- reaching laterally Side bilateral Reps/Minutes 2x30 ea Comments added to HEP sit to stand Other Exercise Name sit to stand Equipment Used green chair, band around knees to correct varus Reps/Minutes 2x10 Comments HEP Manual Therapy Treatment Soft Tissue Mobilization right hip Body Location glutes, QL Mobilization Type Strumming,Sustained Pressure, Trigger Point Release Intensity/Depth Moderate Body Position Sidelying Comments pt able to tolerate SL this session Self-Care/Home Management Treatment Education Patient Education Home Exercise Program Other Education Added modified standing child' s pose, reaching laterally to HEP. Educated pt on using rolling pin to lateral RLE just like she uses ball to low back and glutes to release mm . PT-OP-R Modalities Start: 10/06/21 08:39 Freq: Status: Active Protocol: Document 12/04/21 10:27 MA (Rec: 12/04/21 11:17 MA [id number]) Hot Pack/Cold Pack Treatment Hot Pack Location lumbar Patient Position Hooklying Treatment Duration (minutes) 15 Patient Tolerance Good Comments end of tx PT-OP-S Aquatic Treatment Start: 10/06/21 08:39 Freq: Status: Active Protocol: Document 11/11/21 14:44 LJ (Rec: 11/11/21 14:52 LJ [id number]) Aquatics Treatment Pool Entry/Exit Pool Entry/Exit Method Stairs Assistance Independent Water Walking Tandem Gait Water Level Chest Level [place] March Water Level Chest Level Level of Assistance Verbal Cues Marching Water Level Chest Level Comments breaststroke arms Backwards Water Level Chest Level Comments breaststroke arms Forwards Water Level Chest Level Comments 1 laps with paddles for stretch Lower Extremity Exercises squats Details at wall Reps/Duration 10 Comments cueing for form 4 way hip Details at wall Body Position Standing Water Level Chest Level Reps/Duration 10 each B Comments cues for posture and core engagement Lower Extremity Stretches free the hip Details at wall Body Position Standing Reps/Duration 10 B gastroc/soleus Details at wall Body Position Standing Reps/Duration 2 x 30 B HS Details on stairs Body Position Standing Reps/Duration 2 x 30 B hip flexors Body Position Standing Reps/Duration 2 x 30 B Upper Extremity Exercises corner stretch Body Position Standing Reps/Duration 45 sec x2 fl/ext/ab/ad Details braced at wall Body Position Sitting Reps/Duration 10 B each Spinal Exercises BB pull down Details at wall Body Position Sitting Water Level Neck Level Reps/Duration 10 fwd, L side, R side Comments cues for posture trunk rotation Details at wall Body Position Sitting Water Level Neck Level Reps/Duration 10 Comments emphasize pelvic tilt; UEs flexed to 90 degrees Shirley Activities Shirley Activities Bicycle,Bicycle Backwards, Cross Country,Running,Hip Abduction/Adduction Equipment lg belt, #2 wts, M BBs Duration 15 Comments gentle PT-OP-T Assessment and Plan Start: 10/06/21 08:39 Freq: Status: Active Protocol: Document 12/04/21 10:27 MA (Rec: 12/04/21 11:17 MA [id number]) Physical Therapy Assessment Goals Three Impairment strength Short Term Goal (STG) Pt will improve bilateral hip strength to 4/5 all planes for improved stability in gait STG Duration 6 weeks - 11/18/21 Mcfp Goal (LTG) Pt will complete 10 reps on 30 -second sit to stand test without use of upper extremities as a measure of improved BLE strength LTG Duration 12 weeks - 12/30/21 Two Impairment standing and walking tolerance Short Term Goal (STG) Pt will stand 20 minutes without increase in baseline pain to improve her ability to cook a simple meal for herself. 11/19/21 GOAL MET STG Duration 6 weeks - 11/18/21 Mcfp Goal (LTG) Pt will walk for 30 minutes without increase in baseline pain to improve her ability to participate in a self- directed walking program. LTG Duration 12 weeks - 12/30/21 One Impairment lacks HEP Short Term Goal (STG) Pt will be instructed in HEP for pain management, ROM, and core stabilization to support therapy services provided in clinic. 11/19/21 - GOAL MET STG Duration 6 weeks - 11/18/21 [place] Goal (LTG) Pt will be independent with HEP for pain management, strength, and balance to sustain gains made in therapy. LTG Duration 12 weeks - 12/30/21 Assessment Summary Assessment Pt is easily fatigued this session likely due to new cancer medication, and requests frequent breaks. She feels more discomfort along R QL and lateral RLE. Added in modified lateral child's pose in standing to HEP to stretch QL and instructed pt to use rolling pin on lateral LE for pain relief. Due to pt's fatigue, did not progress exercises this session. Physical Therapy Plan Frequency and Duration Frequency of Treatment 2x/Week Duration of Treatment 12 weeks Plan of Care Start Date 10/07/21 Plan of Care End Date 12/30/21 Therapeutic Interventions Therapeutic Interventions Aquatic Therapy,Balance Training,Gait Training,Home Exercise Program,Joint Mobilizations,Lymphedema Management,Manual Therapy, Neuromuscular Re-education, Self-Care/Home Management,Soft Tissue Mobilization,Taping, Therapeutic Activities, Therapeutic Exercises Modalities Cold Pack/Ice Massage,Electric Stimulation,Hot Packs Next Visit Focus/Plan Next Note Type Treatment Note Next Visit Plan Land: Review HEP as needed. Consider standing core stab and postural education/stab.
--- NOTE | 2021-12-21 16:10 | PT.OTN ---
Current Diagnoses Malignant neoplasm of unspecified site of unspecified female breast (12/21/21) Lumbago with sciatica, unspecified side (12/21/21) Difficulty in walking, not elsewhere classified (12/21/21) Abnormal posture (12/21/21) Estrogen receptor positive status [ER+] (12/21/21) Physical Therapy Treatment Note PT-OP-A Visit Information Start: 10/06/21 08:39 Freq: Status: Active Protocol: Document 12/21/21 15:59 SAK (Rec: 12/21/21 16:10 SAK [id number]) Out-Patient Physical Therapy Visit Information Visit Information Visit Type Treatment Note Visit Start Time 11:45 Visit Stop Time 12:30 Total Visit Minutes 45 Visit Number 12 Number of PEGGER Visits 0 Evaluation Information Evaluation Date 10/07/21 Precautions Precautions osteopenia PT-OP-B Current Condition Start: 10/06/21 08:39 Freq: Status: Active Protocol: Document 10/07/21 11:15 AW (Rec: 10/06/21 08:45 AW [id number]) Current Condition History of Current Condition Onset Date chronic - at least 3 years for back and at least 3 months for shoulders Current Complaints back and leg pain; painful and tight shoulders History of Current Condition 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 Her mother had very limited mobility in the last three years and Matilda was assisting with lots of heavy transfers. She believes her back pain started around that time. She wore a back brace for support at times but isn't sure it helped much. She now has pain that starts in her low back and radiates into buttock and lateral thigh and lateral calf . It is worse on the right but present bilaterally. She has numbness in similar distribution. Pt takes [place] ~ every other day when pain gets very bad. Smoking marijuana helps distract from her pain. 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 She has completed adjuvant radiation therapy as of August. She will start anastrozole soon and is concerned about reductions in estrogen and estradiol. Since cancer treatment, she has grown aware of tight and painful shoulders bilaterally (left worse than right) and reports painful lumps on the left side under breast tissue. Scar tissue seems tight and restricts movement. Recent nuc med bone scan was negative for metastasis. Matilda lives alone since the of her mother. She depends on her logan. She is considering a cancer support group and has good friends. Prior Treatments and Tests - Chiropractic - Nuc med bone scan September 2021 with no evidence of metastasis. - Lumbar MRI 2018: Lower lumbar spine degenerative changes are seen, which are most prominent at the L5-S1 level. - Cervical MRI 2018: Multilevel disc bulges. Spinal stenosis is present most notable at C5-6 secondary to disc bulge. Multiple foraminal narrowing most notable at C5- 6 secondary to uncovertebral arthropathy. Treatment Goals Patient/Caregiver Goals More walking, more exercise, possibly join a gym. Has exercise bike and some weights at home. Lift without pain. Personal Factors Other Personal Factors That May Effect a fib, BMI 37, chronic low Therapy/Recovery back pain PT-OP-C Subjective Start: 10/06/21 08:39 Freq: Status: Active Protocol: Document 12/21/21 15:59 SAK (Rec: 12/21/21 16:10 SAK [id number]) OP-PT Subjective Patient Comments Patient Comments Patient reports hasn't been to the pool or PT for awhile because of working on her taxes. PT-OP-D Balance Start: 10/06/21 08:39 Freq: Status: Active Protocol: Document 10/07/21 11:15 AW (Rec: 10/07/21 13:41 AW [id number]) Balance Tests Single Limb Standing Single Limb- Right 3 sec with fingertip support on wall Single Limb- Left 5 sec with fingertip support on wall PT-OP-F Manual Assessment Start: 10/06/21 08:39 Freq: Status: Active Protocol: Document 10/07/21 11:15 AW (Rec: 10/07/21 13:44 AW [id number]) Manual Assessments Soft Tissue Assessment Soft Tissue Mobility Assessment Severely limited internal rotation in bilateral hips. TTP at bilateral greater trochanters, deep external rotators, and gluteal region PT-OP-G Mobility & Gait Start: 10/06/21 08:39 Freq: Status: Active Protocol: Document 10/07/21 11:15 AW (Rec: 10/07/21 16:23 AW [id number]) OP Mobility Evaluation Bed Mobility Rolling Difficult and painful rolling Supine to and from Sit Increased time and cues needed for log roll Transfers Sit to Stand Definite need for use of hands OP Gait Assessment Comments Gait Comments Pt ambulates independently with lateral lean in ipsilateral stance, wide base of support, decreased RLE stance time, reduced heel strike and weak toe off. Generally unsteady. PT-OP-H Neuro Start: 10/06/21 08:39 Freq: Status: Active Protocol: Document 10/07/21 11:15 AW (Rec: 10/07/21 16:23 AW [id number]) Sensation Evaluation Gross Sensation Gross Sensation Left LE Impaired,Right LE Impaired Comments Summary Comments Pain and numbness in buttocks and posterolateral thigh, lateral calf. Right more significantly affected than left. Deep Tendon Reflex & Clonus Assessment Deep Tendon Reflex Bicep Deep Tendon Reflex 2+ Normal Achilles Deep Tendon Reflex 1+ Diminished Patellar Deep Tendon Reflex 2+ Normal PT-OP-J Posture/Palpation/Skin Start: 10/06/21 08:39 Freq: Status: Active Protocol: Document 10/07/21 11:15 AW (Rec: 10/07/21 16:23 AW [id number]) Posture Evaluation Comments Posture Comments Flat lumbar spine with hinge at L4-5. Extension severely limited. Decreased weightbearing RLE in static stance and in gait Skin Assessment Incisional Assessment Incision Appearance/Comments Left lumpectomy scar with significantly limited mobility . PT-OP-K Range of Motion Start: 10/06/21 08:39 Freq: Status: Active Protocol: Document 10/07/21 11:15 AW (Rec: 10/08/21 15:10 AW [id number]) Cervical Spine Range of Motion Cervical Spine Active Testing Position Sitting Flexion 45 Extension 25 Rotation Left 40 Rotation Right 40 Lateral Flexion Left 20 Lateral Flexion Right 15 ROM Limitations Soft Tissue Tightness,Pain Comments Lateral flexion limited by increased tone in upper traps bilaterally Lumbar Spine Range of Motion Lumbar Spine Active Testing Position Standing Comments Pt is able to bend forward with fingertips to within 8 from floor. Positive [place] sign. Lateral flexion severely limited and pt can only slide fingertips ~3 inches toward lateral knee. Shoulder Goniometric Range of Motion Shoulder Right Active Testing Position Sitting Flexion 140 Abduction 135 External Rotation at 0 degrees Abduction 50 Internal Rotation Behind Back (text) T10 Left Active Testing Position Sitting Flexion 140 Abduction 137 External Rotation at 0 degrees Abduction 55 Internal Rotation Behind Back (text) T12 Hip Goniometric Range of Motion Hip bilat Testing Position Supine Comments Internal rotation severely limited and end-range PROM does reproduce pain PT-OP-L Special Tests Start: 10/06/21 08:39 Freq: Status: Active Protocol: Document 10/07/21 11:15 AW (Rec: 10/07/21 16:23 AW [id number]) Special Tests Lumbar Spine Special Tests Slump Test Results positive for pain, numbness, tingling RLE 2nd most provocative position PT-OP-M Strength Start: 10/06/21 08:39 Freq: Status: Active Protocol: Document 10/07/21 11:15 AW (Rec: 10/07/21 16:23 AW [id number]) Hip Strength Hip Manual Muscle Testing Right Flexion (L2) 4- Good- Extension (S1) 3 Fair Abduction 3 Fair Left Flexion (L2) 4 Good Extension (S1) 3+ Fair+ Abduction 3+ Fair+ Knee Strength Knee Manual Muscle Testing bilat Flexion (S2) 4 Good Extension (L3) 4 Good Ankle/Foot Strength Ankle and Foot Manual Muscle Testing bilat Dorsiflexion (L4) 4 Good Comments Pt unable to complete two single leg heel lifts with good elevation. Toe Strength Toe Manual Muscle Testing Great Toe Extension 4+ Good+ PT-OP-Q Treatments Start: 10/06/21 08:39 Freq: Status: Active Protocol: Document 12/04/21 10:27 MA (Rec: 12/04/21 11:17 MA [id number]) Cardio Equipment Recumbent Elliptical ([place]) Duration (Minutes) 6 Resistance 5 Seat Position 8 Other pt requested decreasing resistance to 3 after 3 minutes Therapeutic Exercises Supine Exercises piriformis stretch Side bilateral Reps/Minutes 30 ea Comments in seated today Standing Exercises lateral band walk Standing Exercise Name lateral band walk Resistance yellow loop Reps/Minutes 10' lap x 4 Comments R side LBP while stepping today Other Exercises Child's Pose Other Exercise Name modified in standing- reaching laterally Side bilateral Reps/Minutes 2x30 ea Comments added to HEP sit to stand Other Exercise Name sit to stand Equipment Used green chair, band around knees to correct varus Reps/Minutes 2x10 Comments HEP Manual Therapy Treatment Soft Tissue Mobilization right hip Body Location glutes, QL Mobilization Type Strumming,Sustained Pressure, Trigger Point Release Intensity/Depth Moderate Body Position Sidelying Comments pt able to tolerate SL this session Self-Care/Home Management Treatment Education Patient Education Home Exercise Program Other Education Added modified standing child' s pose, reaching laterally to HEP. Educated pt on using rolling pin to lateral RLE just like she uses ball to low back and glutes to release mm . PT-OP-R Modalities Start: 10/06/21 08:39 Freq: Status: Active Protocol: Document 12/04/21 10:27 MA (Rec: 12/04/21 11:17 MA [id number]) Hot Pack/Cold Pack Treatment Hot Pack Location lumbar Patient Position Hooklying Treatment Duration (minutes) 15 Patient Tolerance Good Comments end of tx PT-OP-S Aquatic Treatment Start: 10/06/21 08:39 Freq: Status: Active Protocol: Document 12/21/21 15:59 SAK (Rec: 12/21/21 16:10 SAK [id number]) Aquatics Treatment Pool Entry/Exit Pool Entry/Exit Method Stairs Assistance Independent Water Walking Sideways Water Level Chest Level Comments windshield wiper arms for core challenge [place] March Water Level Chest Level Level of Assistance Verbal Cues Marching Water Level Chest Level Comments arms at sides for drag Backwards Water Level Chest Level Comments arms at sides for drag Forwards Water Level Chest Level Comments arms at sides for drag Lower Extremity Stretches piriformis Reps/Duration 2x30 HS Body Position Standing Equipment Small Noodle Reps/Duration 2 x 30 B hip flexors Body Position Standing Equipment Small Noodle Reps/Duration 2 x 30 B Upper Extremity Exercises corner stretch Body Position Standing Reps/Duration 45 sec x2 Spinal Exercises BB pull down Details at wall Water Level Neck Level Reps/Duration 10 fwd Comments cues for posture [employer] Activities [employer] Activities Bicycle,Bicycle Backwards, Cross Country,Running,Hip Abduction/Adduction Other Activities deep water han# peng, [place] float x 7 min PT-OP-T Assessment and Plan Start: 10/06/21 08:39 Freq: Status: Active Protocol: Document 12/21/21 15:59 SAK (Rec: 12/21/21 16:10 SAK [id number]) Physical Therapy Assessment Impairments Impairments Activity Tolerance,Balance, Gait,Pain,Posture,ROM, Sensation,Soft Tissue Mobility ,Strength Goals Three Impairment strength Short Term Goal (STG) Pt will improve bilateral hip strength to 4/5 all planes for improved stability in gait STG Duration 6 weeks - 11/18/21 [facility] Goal (LTG) Pt will complete 10 reps on 30 -second sit to stand test without use of upper extremities as a measure of improved BLE strength LTG Duration 12 weeks - 12/30/21 Two Impairment standing and walking tolerance Short Term Goal (STG) Pt will stand 20 minutes without increase in baseline pain to improve her ability to cook a simple meal for herself. 11/19/21 GOAL MET STG Duration 6 weeks - 11/18/21 [employer] Goal (LTG) Pt will walk for 30 minutes without increase in baseline pain to improve her ability to participate in a self- directed walking program. LTG Duration 12 weeks - 12/30/21 One Impairment lacks HEP Short Term Goal (STG) Pt will be instructed in HEP for pain management, ROM, and core stabilization to support therapy services provided in clinic. 11/19/21 - GOAL MET STG Duration 6 weeks - 11/18/21 [employer] Goal (LTG) Pt will be independent with HEP for pain management, strength, and balance to sustain gains made in therapy. LTG Duration 12 weeks - 12/30/21 Assessment Summary Assessment Importance of consistent exercise stressed to patient, taking breaks for exercise, self-care. Demonstrated good tolerance for aquatic exercise and good relief of pain with deep water traction. Physical Therapy Plan Frequency and Duration Frequency of Treatment 2x/Week Duration of Treatment 12 weeks Plan of Care Start Date 10/07/21 Plan of Care End Date 12/30/21 Therapeutic Interventions Therapeutic Interventions Aquatic Therapy,Balance Training,Gait Training,Home Exercise Program,Joint Mobilizations,Lymphedema Management,Manual Therapy, Neuromuscular Re-education, Self-Care/Home Management,Soft Tissue Mobilization,Taping, Therapeutic Activities, Therapeutic Exercises Modalities Cold Pack/Ice Massage,Electric Stimulation,Hot Packs Next Visit Focus/Plan Next Note Type Treatment Note Next Visit Plan Land: Review HEP as needed. Consider standing core stab and postural education/stab. Aquatic: continue progression of therapeutic aquatic exercises for strengthening, core stabilization, postural correction. Assess response to deep water traction trial.
--- NOTE | 2022-01-04 14:12 | PT.OTRE ---
Current Diagnoses Malignant neoplasm of unspecified site of unspecified female breast (01/04/22) Lumbago with sciatica, unspecified side (01/04/22) Difficulty in walking, not elsewhere classified (01/04/22) Abnormal posture (01/04/22) Estrogen receptor positive status [ER+] (01/04/22) Past Medical History (Last Reviewed 07/20/21 @ 16:03 by Kenny Light MD) Chicken pox (1966) Chickenpox (1966) Colon polyps (2013) Fibrocystic breast (1999) Flat feet (1956) Foot pain (1956) Hematuria Herpes simplex (1997) History of multiple miscarriages History of orthopedic surgery (1983) Hypothyroidism (1999) Lichen sclerosus of female genitalia Low back pain radiating down leg Neck pain, chronic Paresthesia and pain of both upper extremities Pure hypercholesterolemia (11/23/16) PVC (premature ventricular contraction) (2013) Restless leg syndrome (2012) Scarring of conjunctiva of left eye (2013) Shoulder pain, left (2015) Sleep apnea (2012) Status post endovenous radiofrequency ablation (RFA) of saphenous vein (~2015) Varicose veins of left lower extremity (~2015) Surgical History (Last Reviewed 07/20/21 @ 16:03 by Kenny Light MD) Anesthesia History of orthopedic surgery (1983) Status post endovenous radiofrequency ablation (RFA) of saphenous vein (~2015) Visit Care Team Role Provider Type Santhosh Prescott MD Family Provider Non-Staff Primary Care Provider Specialty: Family Practice Address: [address] [place] [address], [facility] [address], [place], [address] Email: Corky Forbes MD Attending Provider Non-Staff Referring Provider Specialty: Medical Address: [address] [place] [address], [id number] Email: Physical Therapy Re-Evaluation PT-OP-A Visit Information Start: 10/06/21 08:39 Freq: Status: Active Protocol: Document 01/04/22 17:32 SAK (Rec: 01/04/22 17:33 SAK [id number]) Out-Patient Physical Therapy Visit Information Visit Information Visit Type Aquatic Treatment Note Visit Start Time 11:45 Visit Stop Time 12:30 Total Visit Minutes 45 Visit Number 13 Evaluation Information Evaluation Date 10/07/21 Precautions Precautions osteopenia PT-OP-B Current Condition Start: 10/06/21 08:39 Freq: Status: Active Protocol: Document 10/07/21 11:15 AW (Rec: 10/06/21 08:45 AW [id number]) Current Condition History of Current Condition Onset Date chronic - at least 3 years for back and at least 3 months for shoulders Current Complaints back and leg pain; painful and tight shoulders History of Current Condition 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 Her mother had very limited mobility in the last three years and Matilda was assisting with lots of heavy transfers. She believes her back pain started around that time. She wore a back brace for support at times but isn't sure it helped much. She now has pain that starts in her low back and radiates into buttock and lateral thigh and lateral calf . It is worse on the right but present bilaterally. She has numbness in similar distribution. Pt takes [place] ~ every other day when pain gets very bad. Smoking marijuana helps distract from her pain. 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 She has completed adjuvant radiation therapy as of August. She will start anastrozole soon and is concerned about reductions in estrogen and estradiol. Since cancer treatment, she has grown aware of tight and painful shoulders bilaterally (left worse than right) and reports painful lumps on the left side under breast tissue. Scar tissue seems tight and restricts movement. Recent nuc med bone scan was negative for metastasis. Matilda lives alone since the of her mother. She depends on her logan. She is considering a cancer support group and has good friends. Prior Treatments and Tests - Chiropractic - Nuc med bone scan September 2021 with no evidence of metastasis. - Lumbar MRI 2018: Lower lumbar spine degenerative changes are seen, which are most prominent at the L5-S1 level. - Cervical MRI 2018: Multilevel disc bulges. Spinal stenosis is present most notable at C5-6 secondary to disc bulge. Multiple foraminal narrowing most notable at C5- 6 secondary to uncovertebral arthropathy. Treatment Goals Patient/Caregiver Goals More walking, more exercise, possibly join a gym. Has exercise bike and some weights at home. Lift without pain. Personal Factors Other Personal Factors That May Effect a fib, BMI 37, chronic low Therapy/Recovery back pain PT-OP-C Subjective Start: 10/06/21 08:39 Freq: Status: Active Protocol: Document 01/04/22 17:32 SAK (Rec: 01/04/22 17:33 SAK [id number]) OP-PT Subjective Patient Comments Patient Comments Reports increase in back soreness because she lifted a folding table by herself yesterday.:I know better. PT-OP-D Balance Start: 10/06/21 08:39 Freq: Status: Active Protocol: Document 10/07/21 11:15 AW (Rec: 10/07/21 13:41 AW [id number]) Balance Tests Single Limb Standing Single Limb- Right 3 sec with fingertip support on wall Single Limb- Left 5 sec with fingertip support on wall PT-OP-F Manual Assessment Start: 10/06/21 08:39 Freq: Status: Active Protocol: Document 10/07/21 11:15 AW (Rec: 10/07/21 13:44 AW [id number]) Manual Assessments Soft Tissue Assessment Soft Tissue Mobility Assessment Severely limited internal rotation in bilateral hips. TTP at bilateral greater trochanters, deep external rotators, and gluteal region PT-OP-G Mobility & Gait Start: 10/06/21 08:39 Freq: Status: Active Protocol: Document 10/07/21 11:15 AW (Rec: 10/07/21 16:23 AW [id number]) OP Mobility Evaluation Bed Mobility Rolling Difficult and painful rolling Supine to and from Sit Increased time and cues needed for log roll Transfers Sit to Stand Definite need for use of hands OP Gait Assessment Comments Gait Comments Pt ambulates independently with lateral lean in ipsilateral stance, wide base of support, decreased RLE stance time, reduced heel strike and weak toe off. Generally unsteady. PT-OP-H Neuro Start: 10/06/21 08:39 Freq: Status: Active Protocol: Document 10/07/21 11:15 AW (Rec: 10/07/21 16:23 AW [id number]) Sensation Evaluation Gross Sensation Gross Sensation Left LE Impaired,Right LE Impaired Comments Summary Comments Pain and numbness in buttocks and posterolateral thigh, lateral calf. Right more significantly affected than left. Deep Tendon Reflex & Clonus Assessment Deep Tendon Reflex Bicep Deep Tendon Reflex 2+ Normal Achilles Deep Tendon Reflex 1+ Diminished Patellar Deep Tendon Reflex 2+ Normal PT-OP-J Posture/Palpation/Skin Start: 10/06/21 08:39 Freq: Status: Active Protocol: Document 10/07/21 11:15 AW (Rec: 10/07/21 16:23 AW [id number]) Posture Evaluation Comments Posture Comments Flat lumbar spine with hinge at L4-5. Extension severely limited. Decreased weightbearing RLE in static stance and in gait Skin Assessment Incisional Assessment Incision Appearance/Comments Left lumpectomy scar with significantly limited mobility . PT-OP-K Range of Motion Start: 10/06/21 08:39 Freq: Status: Active Protocol: Document 10/07/21 11:15 AW (Rec: 10/08/21 15:10 AW [id number]) Cervical Spine Range of Motion Cervical Spine Active Testing Position Sitting Flexion 45 Extension 25 Rotation Left 40 Rotation Right 40 Lateral Flexion Left 20 Lateral Flexion Right 15 ROM Limitations Soft Tissue Tightness,Pain Comments Lateral flexion limited by increased tone in upper traps bilaterally Lumbar Spine Range of Motion Lumbar Spine Active Testing Position Standing Comments Pt is able to bend forward with fingertips to within 8 from floor. Positive [place] sign. Lateral flexion severely limited and pt can only slide fingertips ~3 inches toward lateral knee. Shoulder Goniometric Range of Motion Shoulder Measured in Degrees Right Active Testing Position Sitting Flexion 140 Abduction 135 External Rotation at 0 degrees Abduction 50 Internal Rotation Behind Back (text) T10 Left Active Testing Position Sitting Flexion 140 Abduction 137 External Rotation at 0 degrees Abduction 55 Internal Rotation Behind Back (text) T12 Hip Goniometric Range of Motion Hip Measured in Degrees bilat Testing Position Supine Comments Internal rotation severely limited and end-range PROM does reproduce pain PT-OP-L Special Tests Start: 10/06/21 08:39 Freq: Status: Active Protocol: Document 10/07/21 11:15 AW (Rec: 10/07/21 16:23 AW [id number]) Special Tests Lumbar Spine Special Tests Slump Test Results positive for pain, numbness, tingling RLE 2nd most provocative position PT-OP-M Strength Start: 10/06/21 08:39 Freq: Status: Active Protocol: Document 10/07/21 11:15 AW (Rec: 10/07/21 16:23 AW [id number]) Hip Strength Hip Manual Muscle Testing Right Flexion (L2) 4- Good- Extension (S1) 3 Fair Abduction 3 Fair Left Flexion (L2) 4 Good Extension (S1) 3+ Fair+ Abduction 3+ Fair+ Knee Strength Knee Manual Muscle Testing bilat Flexion (S2) 4 Good Extension (L3) 4 Good Ankle/Foot Strength Ankle and Foot Manual Muscle Testing bilat Dorsiflexion (L4) 4 Good Comments Pt unable to complete two single leg heel lifts with good elevation. Toe Strength Toe Manual Muscle Testing Great Toe Extension 4+ Good+ PT-OP-Q Treatments Start: 10/06/21 08:39 Freq: Status: Active Protocol: Document 12/04/21 10:27 MA (Rec: 12/04/21 11:17 MA [id number]) Cardio Equipment Recumbent Elliptical (SentiOne) Duration (Minutes) 6 Resistance 5 Seat Position 8 Other pt requested decreasing resistance to 3 after 3 minutes Therapeutic Exercises Supine Exercises piriformis stretch Side bilateral Reps/Minutes 30 ea Comments in seated today Standing Exercises lateral band walk Standing Exercise Name lateral band walk Resistance yellow loop Reps/Minutes 10' lap x 4 Comments R side LBP while stepping today Other Exercises Child's Pose Other Exercise Name modified in standing- reaching laterally Side bilateral Reps/Minutes 2x30 ea Comments added to HEP sit to stand Other Exercise Name sit to stand Equipment Used green chair, band around knees to correct varus Reps/Minutes 2x10 Comments HEP Manual Therapy Treatment Soft Tissue Mobilization right hip Body Location glutes, QL Mobilization Type Strumming,Sustained Pressure, Trigger Point Release Intensity/Depth Moderate Body Position Sidelying Comments pt able to tolerate SL this session Self-Care/Home Management Treatment Education Patient Education Home Exercise Program Other Education Added modified standing child' s pose, reaching laterally to HEP. Educated pt on using rolling pin to lateral RLE just like she uses ball to low back and glutes to release mm . PT-OP-R Modalities Start: 10/06/21 08:39 Freq: Status: Active Protocol: Document 12/04/21 10:27 MA (Rec: 12/04/21 11:17 MA [id number]) Hot Pack/Cold Pack Treatment Hot Pack Location lumbar Patient Position Hooklying Treatment Duration (minutes) 15 Patient Tolerance Good Comments end of tx PT-OP-T Assessment and Plan Start: 10/06/21 08:39 Freq: Status: Active Protocol: Document 01/04/22 17:32 [facility] (Rec: 01/04/22 17:33 [facility] [id number]) Physical Therapy Assessment Impairments Impairments Activity Tolerance,Balance, Gait,Pain,Posture,ROM, Sensation,Soft Tissue Mobility ,Strength Goals Three Impairment strength Short Term Goal (STG) Pt will improve bilateral hip strength to 4/5 all planes for improved stability in gait STG Duration goal met Loan Interviewer Goal (LTG) Pt will complete 10 reps on 30 -second sit to stand test without use of upper extremities as a measure of improved BLE strength 01/04/22: good goal progress; completed 7 reps LTG Duration 03/07/22 Two Impairment standing and walking tolerance Short Term Goal (STG) Pt will stand 20 minutes without increase in baseline pain to improve her ability to cook a simple meal for herself. 11/19/21 GOAL MET STG Duration goal met Loan Interviewer Goal (LTG) Pt will walk for 30 minutes without increase in baseline pain to improve her ability to participate in a self- directed walking program. 01/04/22: good goal progress, can walk for 20 min without increase in baseline pain LTG Duration 03/07/22 One Impairment lacks HEP Short Term Goal (STG) Pt will be instructed in HEP for pain management, ROM, and core stabilization to support therapy services provided in clinic. 11/19/21 - GOAL MET STG Duration goal met Loan Interviewer Goal (LTG) Pt will be independent with HEP for pain management, strength, and balance to sustain gains made in therapy. 01/04/22: independent with land- based HEP. Continues to progress with aquatic exercise program LTG Duration 03/07/22 Assessment Summary Assessment Patient has made good progress in all goal areas. She would benefit from further skilled aquatic PT with possible progression back to land-based PT to help her to fully achieve her above goals and return to prior level of function. Good response to deep water traction. Physical Therapy Plan Frequency and Duration Frequency of Treatment 2x/Week Duration of Treatment 8 weeks Plan of Care Start Date 01/04/22 Plan of Care End Date 03/07/22 Therapeutic Interventions Therapeutic Interventions Aquatic Therapy,Balance Training,Gait Training,Home Exercise Program,Joint Mobilizations,Lymphedema Management,Manual Therapy, Neuromuscular Re-education, Self-Care/Home Management,Soft Tissue Mobilization,Taping, Therapeutic Activities, Therapeutic Exercises Modalities Cold Pack/Ice Massage,Electric Stimulation,Hot Packs Next Visit Focus/Plan Next Note Type Treatment Note Next Visit Plan Land: Review HEP as needed. Consider standing core stab and postural education/stab. Aquatic: continue progression of therapeutic aquatic exercises for strengthening, core stabilization, postural correction.
--- NOTE | 2022-01-04 14:12 | PT.OPPOC ---
Physical, Occupational & Speech Therapy At [facility] Current Diagnoses Malignant neoplasm of unspecified site of unspecified female breast (01/04/22) Lumbago with sciatica, unspecified side (01/04/22) Difficulty in walking, not elsewhere classified (01/04/22) Abnormal posture (01/04/22) Estrogen receptor positive status [ER+] (01/04/22) Visit Care Team Role Provider Type Santhosh Prescott MD Family Provider Non-Staff Primary Care Provider Specialty: Family Practice Address: [address] [place] [address], [address], [place], [address] Email: Corky Forbes MD Attending Provider Non-Staff Referring Provider Specialty: Medical Address: [address] [place] [address], [id number] Email: Plan Of Care PT-OP-T Assessment and Plan Start: 10/06/21 08:39 Freq: Status: Active Protocol: Document 01/04/22 17:32 SAK (Rec: 01/04/22 17:33 SAK [id number]) Physical Therapy Assessment Impairments Impairments Activity Tolerance,Balance, Gait,Pain,Posture,ROM, Sensation,Soft Tissue Mobility ,Strength Goals Three Impairment strength Short Term Goal (STG) Pt will improve bilateral hip strength to 4/5 all planes for improved stability in gait STG Duration goal met Illusionist Goal (LTG) Pt will complete 10 reps on 30 -second sit to stand test without use of upper extremities as a measure of improved BLE strength 01/04/22: good goal progress; completed 7 reps LTG Duration 03/07/22 Two Impairment standing and walking tolerance Short Term Goal (STG) Pt will stand 20 minutes without increase in baseline pain to improve her ability to cook a simple meal for herself. 11/19/21 GOAL MET STG Duration goal met Nursing Home Goal (LTG) Pt will walk for 30 minutes without increase in baseline pain to improve her ability to participate in a self- directed walking program. 01/04/22: good goal progress, can walk for 20 min without increase in baseline pain LTG Duration 03/07/22 One Impairment lacks HEP Short Term Goal (STG) Pt will be instructed in HEP for pain management, ROM, and core stabilization to support therapy services provided in clinic. 11/19/21 - GOAL MET STG Duration goal met Nursing Home Goal (LTG) Pt will be independent with HEP for pain management, strength, and balance to sustain gains made in therapy. 01/04/22: independent with land- based HEP. Continues to progress with aquatic exercise program LTG Duration 03/07/22 Assessment Summary Assessment Patient has made good progress in all goal areas. She would benefit from further skilled aquatic PT with possible progression back to land-based PT to help her to fully achieve her above goals and return to prior level of function. Good response to deep water traction. Physical Therapy Plan Frequency and Duration Frequency of Treatment 2x/Week Duration of Treatment 8 weeks Plan of Care Start Date 01/04/22 Plan of Care End Date 03/07/22 Therapeutic Interventions Therapeutic Interventions Aquatic Therapy,Balance Training,Gait Training,Home Exercise Program,Joint Mobilizations,Lymphedema Management,Manual Therapy, Neuromuscular Re-education, Self-Care/Home Management,Soft Tissue Mobilization,Taping, Therapeutic Activities, Therapeutic Exercises Modalities Cold Pack/Ice Massage,Electric Stimulation,Hot Packs Next Visit Focus/Plan Next Note Type Treatment Note Next Visit Plan Land: Review HEP as needed. Consider standing core stab and postural education/stab. Aquatic: continue progression of therapeutic aquatic exercises for strengthening, core stabilization, postural correction. Plan of Care Dates Plan of Care Start Date 01/04/22 Plan of Care End Date 03/07/22 Electronically Signed by: Yarely Alex, PT 01/06/22 [id number] If you are in agreement with this Plan of Care, please return a signed and dated copy. I have reviewed this Plan of Care and certify that the skilled therapy services above are required to meet the patient?s needs. Physician Signature Date Printed Name and Credentials Clinical Instructor Signature Printed Name and Credentials
--- NOTE | 2022-01-04 16:00 | PT.OTN ---
Current Diagnoses Malignant neoplasm of unspecified site of unspecified female breast (01/04/22) Lumbago with sciatica, unspecified side (01/04/22) Difficulty in walking, not elsewhere classified (01/04/22) Abnormal posture (01/04/22) Estrogen receptor positive status [ER+] (01/04/22) Physical Therapy Treatment Note PT-OP-A Visit Information Start: 10/06/21 08:39 Freq: Status: Active Protocol: Document 01/04/22 17:32 SAK (Rec: 01/04/22 17:33 SAK [id number]) Out-Patient Physical Therapy Visit Information Visit Information Visit Type Aquatic Treatment Note Visit Start Time 11:45 Visit Stop Time 12:30 Total Visit Minutes 45 Visit Number 13 Evaluation Information Evaluation Date 10/07/21 Precautions Precautions osteopenia PT-OP-B Current Condition Start: 10/06/21 08:39 Freq: Status: Active Protocol: Document 10/07/21 11:15 AW (Rec: 10/06/21 08:45 AW [id number]) Current Condition History of Current Condition Onset Date chronic - at least 3 years for back and at least 3 months for shoulders Current Complaints back and leg pain; painful and tight shoulders History of Current Condition 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 Her mother had very limited mobility in the last three years and Matilda was assisting with lots of heavy transfers. She believes her back pain started around that time. She wore a back brace for support at times but isn't sure it helped much. She now has pain that starts in her low back and radiates into buttock and lateral thigh and lateral calf . It is worse on the right but present bilaterally. She has numbness in similar distribution. Pt takes [place] ~ every other day when pain gets very bad. Smoking marijuana helps distract from her pain. 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 She has completed adjuvant radiation therapy as of August. She will start anastrozole soon and is concerned about reductions in estrogen and estradiol. Since cancer treatment, she has grown aware of tight and painful shoulders bilaterally (left worse than right) and reports painful lumps on the left side under breast tissue. Scar tissue seems tight and restricts movement. Recent nuc med bone scan was negative for metastasis. Matilda lives alone since the of her mother. She depends on her logan. She is considering a cancer support group and has good friends. Prior Treatments and Tests - Chiropractic - Nuc med bone scan September 2021 with no evidence of metastasis. - Lumbar MRI 2018: Lower lumbar spine degenerative changes are seen, which are most prominent at the L5-S1 level. - Cervical MRI 2018: Multilevel disc bulges. Spinal stenosis is present most notable at C5-6 secondary to disc bulge. Multiple foraminal narrowing most notable at C5- 6 secondary to uncovertebral arthropathy. Treatment Goals Patient/Caregiver Goals More walking, more exercise, possibly join a gym. Has exercise bike and some weights at home. Lift without pain. Personal Factors Other Personal Factors That May Effect a fib, BMI 37, chronic low Therapy/Recovery back pain PT-OP-C Subjective Start: 10/06/21 08:39 Freq: Status: Active Protocol: Document 01/04/22 17:32 SAK (Rec: 01/04/22 17:33 SAK [id number]) OP-PT Subjective Patient Comments Patient Comments Reports increase in back soreness because she lifted a folding table by herself yesterday.:I know better. PT-OP-D Balance Start: 10/06/21 08:39 Freq: Status: Active Protocol: Document 10/07/21 11:15 AW (Rec: 10/07/21 13:41 AW [id number]) Balance Tests Single Limb Standing Single Limb- Right 3 sec with fingertip support on wall Single Limb- Left 5 sec with fingertip support on wall PT-OP-F Manual Assessment Start: 10/06/21 08:39 Freq: Status: Active Protocol: Document 10/07/21 11:15 AW (Rec: 10/07/21 13:44 AW [id number]) Manual Assessments Soft Tissue Assessment Soft Tissue Mobility Assessment Severely limited internal rotation in bilateral hips. TTP at bilateral greater trochanters, deep external rotators, and gluteal region PT-OP-G Mobility & Gait Start: 10/06/21 08:39 Freq: Status: Active Protocol: Document 10/07/21 11:15 AW (Rec: 10/07/21 16:23 AW [id number]) OP Mobility Evaluation Bed Mobility Rolling Difficult and painful rolling Supine to and from Sit Increased time and cues needed for log roll Transfers Sit to Stand Definite need for use of hands OP Gait Assessment Comments Gait Comments Pt ambulates independently with lateral lean in ipsilateral stance, wide base of support, decreased RLE stance time, reduced heel strike and weak toe off. Generally unsteady. PT-OP-H Neuro Start: 10/06/21 08:39 Freq: Status: Active Protocol: Document 10/07/21 11:15 AW (Rec: 10/07/21 16:23 AW [id number]) Sensation Evaluation Gross Sensation Gross Sensation Left LE Impaired,Right LE Impaired Comments Summary Comments Pain and numbness in buttocks and posterolateral thigh, lateral calf. Right more significantly affected than left. Deep Tendon Reflex & Clonus Assessment Deep Tendon Reflex Bicep Deep Tendon Reflex 2+ Normal Achilles Deep Tendon Reflex 1+ Diminished Patellar Deep Tendon Reflex 2+ Normal PT-OP-J Posture/Palpation/Skin Start: 10/06/21 08:39 Freq: Status: Active Protocol: Document 10/07/21 11:15 AW (Rec: 10/07/21 16:23 AW [id number]) Posture Evaluation Comments Posture Comments Flat lumbar spine with hinge at L4-5. Extension severely limited. Decreased weightbearing RLE in static stance and in gait Skin Assessment Incisional Assessment Incision Appearance/Comments Left lumpectomy scar with significantly limited mobility . PT-OP-K Range of Motion Start: 10/06/21 08:39 Freq: Status: Active Protocol: Document 10/07/21 11:15 AW (Rec: 10/08/21 15:10 AW [id number]) Cervical Spine Range of Motion Cervical Spine Active Testing Position Sitting Flexion 45 Extension 25 Rotation Left 40 Rotation Right 40 Lateral Flexion Left 20 Lateral Flexion Right 15 ROM Limitations Soft Tissue Tightness,Pain Comments Lateral flexion limited by increased tone in upper traps bilaterally Lumbar Spine Range of Motion Lumbar Spine Active Testing Position Standing Comments Pt is able to bend forward with fingertips to within 8 from floor. Positive [place] sign. Lateral flexion severely limited and pt can only slide fingertips ~3 inches toward lateral knee. Shoulder Goniometric Range of Motion Shoulder Right Active Testing Position Sitting Flexion 140 Abduction 135 External Rotation at 0 degrees Abduction 50 Internal Rotation Behind Back (text) T10 Left Active Testing Position Sitting Flexion 140 Abduction 137 External Rotation at 0 degrees Abduction 55 Internal Rotation Behind Back (text) T12 Hip Goniometric Range of Motion Hip bilat Testing Position Supine Comments Internal rotation severely limited and end-range PROM does reproduce pain PT-OP-L Special Tests Start: 10/06/21 08:39 Freq: Status: Active Protocol: Document 10/07/21 11:15 AW (Rec: 10/07/21 16:23 AW [id number]) Special Tests Lumbar Spine Special Tests Slump Test Results positive for pain, numbness, tingling RLE 2nd most provocative position PT-OP-M Strength Start: 10/06/21 08:39 Freq: Status: Active Protocol: Document 10/07/21 11:15 AW (Rec: 10/07/21 16:23 AW [id number]) Hip Strength Hip Manual Muscle Testing Right Flexion (L2) 4- Good- Extension (S1) 3 Fair Abduction 3 Fair Left Flexion (L2) 4 Good Extension (S1) 3+ Fair+ Abduction 3+ Fair+ Knee Strength Knee Manual Muscle Testing bilat Flexion (S2) 4 Good Extension (L3) 4 Good Ankle/Foot Strength Ankle and Foot Manual Muscle Testing bilat Dorsiflexion (L4) 4 Good Comments Pt unable to complete two single leg heel lifts with good elevation. Toe Strength Toe Manual Muscle Testing Great Toe Extension 4+ Good+ PT-OP-Q Treatments Start: 10/06/21 08:39 Freq: Status: Active Protocol: Document 12/04/21 10:27 MA (Rec: 12/04/21 11:17 MA [id number]) Cardio Equipment Recumbent Elliptical (Workhint) Duration (Minutes) 6 Resistance 5 Seat Position 8 Other pt requested decreasing resistance to 3 after 3 minutes Therapeutic Exercises Supine Exercises piriformis stretch Side bilateral Reps/Minutes 30 ea Comments in seated today Standing Exercises lateral band walk Standing Exercise Name lateral band walk Resistance yellow loop Reps/Minutes 10' lap x 4 Comments R side LBP while stepping today Other Exercises Child's Pose Other Exercise Name modified in standing- reaching laterally Side bilateral Reps/Minutes 2x30 ea Comments added to HEP sit to stand Other Exercise Name sit to stand Equipment Used green chair, band around knees to correct varus Reps/Minutes 2x10 Comments HEP Manual Therapy Treatment Soft Tissue Mobilization right hip Body Location glutes, QL Mobilization Type Strumming,Sustained Pressure, Trigger Point Release Intensity/Depth Moderate Body Position Sidelying Comments pt able to tolerate SL this session Self-Care/Home Management Treatment Education Patient Education Home Exercise Program Other Education Added modified standing child' s pose, reaching laterally to HEP. Educated pt on using rolling pin to lateral RLE just like she uses ball to low back and glutes to release mm . PT-OP-R Modalities Start: 10/06/21 08:39 Freq: Status: Active Protocol: Document 12/04/21 10:27 MA (Rec: 12/04/21 11:17 MA [id number]) Hot Pack/Cold Pack Treatment Hot Pack Location lumbar Patient Position Hooklying Treatment Duration (minutes) 15 Patient Tolerance Good Comments end of tx PT-OP-S Aquatic Treatment Start: 10/06/21 08:39 Freq: Status: Active Protocol: Document 01/04/22 17:32 SAK (Rec: 01/04/22 17:33 SAK [id number]) Aquatics Treatment Pool Entry/Exit Pool Entry/Exit Method Stairs Assistance Independent Water Walking Sideways Water Level Chest Level Comments windshield wiper arms for core challenge Lower Extremity Stretches piriformis Reps/Duration 2x30 HS Body Position Standing Equipment Small Noodle Reps/Duration 2 x 30 B hip flexors Body Position Standing Equipment Small Noodle Reps/Duration 2 x 30 B Upper Extremity Exercises corner stretch Body Position Standing Reps/Duration 45 sec x2 Spinal Exercises BB pull down Details at wall Water Level Neck Level Reps/Duration 10 fwd Comments cues for posture Caney Activities Caney Activities Bicycle,Bicycle Backwards, Cross Country,Running,Hip Abduction/Adduction Other Activities deep water han# peng, [place] float x 7 min PT-OP-T Assessment and Plan Start: 10/06/21 08:39 Freq: Status: Active Protocol: Document 01/04/22 17:32 [facility] (Rec: 01/04/22 17:33 [facility] [id number]) Physical Therapy Assessment Impairments Impairments Activity Tolerance,Balance, Gait,Pain,Posture,ROM, Sensation,Soft Tissue Mobility ,Strength Goals Three Impairment strength Short Term Goal (STG) Pt will improve bilateral hip strength to 4/5 all planes for improved stability in gait STG Duration goal met Halfway Goal (LTG) Pt will complete 10 reps on 30 -second sit to stand test without use of upper extremities as a measure of improved BLE strength 01/04/22: good goal progress; completed 7 reps LTG Duration 03/07/22 Two Impairment standing and walking tolerance Short Term Goal (STG) Pt will stand 20 minutes without increase in baseline pain to improve her ability to cook a simple meal for herself. 11/19/21 GOAL MET STG Duration goal met [employer] Goal (LTG) Pt will walk for 30 minutes without increase in baseline pain to improve her ability to participate in a self- directed walking program. 01/04/22: good goal progress, can walk for 20 min without increase in baseline pain LTG Duration 03/07/22 One Impairment lacks HEP Short Term Goal (STG) Pt will be instructed in HEP for pain management, ROM, and core stabilization to support therapy services provided in clinic. 11/19/21 - GOAL MET STG Duration goal met [employer] Goal (LTG) Pt will be independent with HEP for pain management, strength, and balance to sustain gains made in therapy. 01/04/22: independent with land- based HEP. Continues to progress with aquatic exercise program LTG Duration 03/07/22 Assessment Summary Assessment Patient has made good progress in all goal areas. She would benefit from further skilled aquatic PT with possible progression back to land-based PT to help her to fully achieve her above goals and return to prior level of function. Good response to deep water traction. Physical Therapy Plan Frequency and Duration Frequency of Treatment 2x/Week Duration of Treatment 8 weeks Plan of Care Start Date 01/04/22 Plan of Care End Date 03/07/22 Therapeutic Interventions Therapeutic Interventions Aquatic Therapy,Balance Training,Gait Training,Home Exercise Program,Joint Mobilizations,Lymphedema Management,Manual Therapy, Neuromuscular Re-education, Self-Care/Home Management,Soft Tissue Mobilization,Taping, Therapeutic Activities, Therapeutic Exercises Modalities Cold Pack/Ice Massage,Electric Stimulation,Hot Packs Next Visit Focus/Plan Next Note Type Treatment Note Next Visit Plan Land: Review HEP as needed. Consider standing core stab and postural education/stab. Aquatic: continue progression of therapeutic aquatic exercises for strengthening, core stabilization, postural correction.
--- NOTE | 2022-02-10 17:30 | PT.OTN ---
Current Diagnoses Malignant neoplasm of unspecified site of unspecified female breast (02/10/22) Lumbago with sciatica, unspecified side (02/10/22) Difficulty in walking, not elsewhere classified (02/10/22) Abnormal posture (02/10/22) Estrogen receptor positive status [ER+] (02/10/22) Physical Therapy Treatment Note PT-OP-A Visit Information Start: 10/06/21 08:39 Freq: Status: Active Protocol: Document 02/10/22 17:24 SAK (Rec: 02/10/22 17:30 SAK [id number]) Out-Patient Physical Therapy Visit Information Visit Information Visit Type Aquatic Treatment Note Visit Start Time 11:45 Visit Stop Time 12:30 Total Visit Minutes 45 Visit Number 14 Evaluation Information Evaluation Date 10/07/21 Precautions Precautions osteopenia PT-OP-B Current Condition Start: 10/06/21 08:39 Freq: Status: Active Protocol: Document 10/07/21 11:15 AW (Rec: 10/06/21 08:45 AW [id number]) Current Condition History of Current Condition Onset Date chronic - at least 3 years for back and at least 3 months for shoulders Current Complaints back and leg pain; painful and tight shoulders History of Current Condition 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 Her mother had very limited mobility in the last three years and Matilda was assisting with lots of heavy transfers. She believes her back pain started around that time. She wore a back brace for support at times but isn't sure it helped much. She now has pain that starts in her low back and radiates into buttock and lateral thigh and lateral calf . It is worse on the right but present bilaterally. She has numbness in similar distribution. Pt takes [place] ~ every other day when pain gets very bad. Smoking marijuana helps distract from her pain. 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 She has completed adjuvant radiation therapy as of August. She will start anastrozole soon and is concerned about reductions in estrogen and estradiol. Since cancer treatment, she has grown aware of tight and painful shoulders bilaterally (left worse than right) and reports painful lumps on the left side under breast tissue. Scar tissue seems tight and restricts movement. Recent nuc med bone scan was negative for metastasis. Matilda lives alone since the of her mother. She depends on her logan. She is considering a cancer support group and has good friends. Prior Treatments and Tests - Chiropractic - Nuc med bone scan September 2021 with no evidence of metastasis. - Lumbar MRI 2018: Lower lumbar spine degenerative changes are seen, which are most prominent at the L5-S1 level. - Cervical MRI 2018: Multilevel disc bulges. Spinal stenosis is present most notable at C5-6 secondary to disc bulge. Multiple foraminal narrowing most notable at C5- 6 secondary to uncovertebral arthropathy. Treatment Goals Patient/Caregiver Goals More walking, more exercise, possibly join a gym. Has exercise bike and some weights at home. Lift without pain. Personal Factors Other Personal Factors That May Effect a fib, BMI 37, chronic low Therapy/Recovery back pain PT-OP-C Subjective Start: 10/06/21 08:39 Freq: Status: Active Protocol: Document 02/10/22 17:24 SAK (Rec: 02/10/22 17:30 SAK [id number]) OP-PT Subjective Patient Comments Patient Comments Being more careful with body mechanics and back protection PT-OP-D Balance Start: 10/06/21 08:39 Freq: Status: Active Protocol: Document 10/07/21 11:15 AW (Rec: 10/07/21 13:41 AW [id number]) Balance Tests Single Limb Standing Single Limb- Right 3 sec with fingertip support on wall Single Limb- Left 5 sec with fingertip support on wall PT-OP-F Manual Assessment Start: 10/06/21 08:39 Freq: Status: Active Protocol: Document 10/07/21 11:15 AW (Rec: 10/07/21 13:44 AW [id number]) Manual Assessments Soft Tissue Assessment Soft Tissue Mobility Assessment Severely limited internal rotation in bilateral hips. TTP at bilateral greater trochanters, deep external rotators, and gluteal region PT-OP-G Mobility & Gait Start: 10/06/21 08:39 Freq: Status: Active Protocol: Document 10/07/21 11:15 AW (Rec: 10/07/21 16:23 AW [id number]) OP Mobility Evaluation Bed Mobility Rolling Difficult and painful rolling Supine to and from Sit Increased time and cues needed for log roll Transfers Sit to Stand Definite need for use of hands OP Gait Assessment Comments Gait Comments Pt ambulates independently with lateral lean in ipsilateral stance, wide base of support, decreased RLE stance time, reduced heel strike and weak toe off. Generally unsteady. PT-OP-H Neuro Start: 10/06/21 08:39 Freq: Status: Active Protocol: Document 10/07/21 11:15 AW (Rec: 10/07/21 16:23 AW [id number]) Sensation Evaluation Gross Sensation Gross Sensation Left LE Impaired,Right LE Impaired Comments Summary Comments Pain and numbness in buttocks and posterolateral thigh, lateral calf. Right more significantly affected than left. Deep Tendon Reflex & Clonus Assessment Deep Tendon Reflex Bicep Deep Tendon Reflex 2+ Normal Achilles Deep Tendon Reflex 1+ Diminished Patellar Deep Tendon Reflex 2+ Normal PT-OP-J Posture/Palpation/Skin Start: 10/06/21 08:39 Freq: Status: Active Protocol: Document 10/07/21 11:15 AW (Rec: 10/07/21 16:23 AW [id number]) Posture Evaluation Comments Posture Comments Flat lumbar spine with hinge at L4-5. Extension severely limited. Decreased weightbearing RLE in static stance and in gait Skin Assessment Incisional Assessment Incision Appearance/Comments Left lumpectomy scar with significantly limited mobility . PT-OP-K Range of Motion Start: 10/06/21 08:39 Freq: Status: Active Protocol: Document 10/07/21 11:15 AW (Rec: 10/08/21 15:10 AW [id number]) Cervical Spine Range of Motion Cervical Spine Active Testing Position Sitting Flexion 45 Extension 25 Rotation Left 40 Rotation Right 40 Lateral Flexion Left 20 Lateral Flexion Right 15 ROM Limitations Soft Tissue Tightness,Pain Comments Lateral flexion limited by increased tone in upper traps bilaterally Lumbar Spine Range of Motion Lumbar Spine Active Testing Position Standing Comments Pt is able to bend forward with fingertips to within 8 from floor. Positive [place] sign. Lateral flexion severely limited and pt can only slide fingertips ~3 inches toward lateral knee. Shoulder Goniometric Range of Motion Shoulder Right Active Testing Position Sitting Flexion 140 Abduction 135 External Rotation at 0 degrees Abduction 50 Internal Rotation Behind Back (text) T10 Left Active Testing Position Sitting Flexion 140 Abduction 137 External Rotation at 0 degrees Abduction 55 Internal Rotation Behind Back (text) T12 Hip Goniometric Range of Motion Hip bilat Testing Position Supine Comments Internal rotation severely limited and end-range PROM does reproduce pain PT-OP-L Special Tests Start: 10/06/21 08:39 Freq: Status: Active Protocol: Document 10/07/21 11:15 AW (Rec: 10/07/21 16:23 AW [id number]) Special Tests Lumbar Spine Special Tests Slump Test Results positive for pain, numbness, tingling RLE 2nd most provocative position PT-OP-M Strength Start: 10/06/21 08:39 Freq: Status: Active Protocol: Document 10/07/21 11:15 AW (Rec: 10/07/21 16:23 AW [id number]) Hip Strength Hip Manual Muscle Testing Right Flexion (L2) 4- Good- Extension (S1) 3 Fair Abduction 3 Fair Left Flexion (L2) 4 Good Extension (S1) 3+ Fair+ Abduction 3+ Fair+ Knee Strength Knee Manual Muscle Testing bilat Flexion (S2) 4 Good Extension (L3) 4 Good Ankle/Foot Strength Ankle and Foot Manual Muscle Testing bilat Dorsiflexion (L4) 4 Good Comments Pt unable to complete two single leg heel lifts with good elevation. Toe Strength Toe Manual Muscle Testing Great Toe Extension 4+ Good+ PT-OP-Q Treatments Start: 10/06/21 08:39 Freq: Status: Active Protocol: Document 12/04/21 10:27 MA (Rec: 12/04/21 11:17 MA [id number]) Cardio Equipment Recumbent Elliptical ([facility]) Duration (Minutes) 6 Resistance 5 Seat Position 8 Other pt requested decreasing resistance to 3 after 3 minutes Therapeutic Exercises Supine Exercises piriformis stretch Side bilateral Reps/Minutes 30 ea Comments in seated today Standing Exercises lateral band walk Standing Exercise Name lateral band walk Resistance yellow loop Reps/Minutes 10' lap x 4 Comments R side LBP while stepping today Other Exercises Child's Pose Other Exercise Name modified in standing- reaching laterally Side bilateral Reps/Minutes 2x30 ea Comments added to HEP sit to stand Other Exercise Name sit to stand Equipment Used green chair, band around knees to correct varus Reps/Minutes 2x10 Comments HEP Manual Therapy Treatment Soft Tissue Mobilization right hip Body Location glutes, QL Mobilization Type Strumming,Sustained Pressure, Trigger Point Release Intensity/Depth Moderate Body Position Sidelying Comments pt able to tolerate SL this session Self-Care/Home Management Treatment Education Patient Education Home Exercise Program Other Education Added modified standing child' s pose, reaching laterally to HEP. Educated pt on using rolling pin to lateral RLE just like she uses ball to low back and glutes to release mm . PT-OP-R Modalities Start: 10/06/21 08:39 Freq: Status: Active Protocol: Document 12/04/21 10:27 MA (Rec: 12/04/21 11:17 MA [id number]) Hot Pack/Cold Pack Treatment Hot Pack Location lumbar Patient Position Hooklying Treatment Duration (minutes) 15 Patient Tolerance Good Comments end of tx PT-OP-S Aquatic Treatment Start: 10/06/21 08:39 Freq: Status: Active Protocol: Document 02/10/22 17:24 [facility] (Rec: 02/10/22 17:30 [facility] [id number]) Aquatics Treatment Pool Entry/Exit Pool Entry/Exit Method Stairs Assistance Independent Water Walking Sideways Water Level Chest Level Walking Equipment Ankle Floats, ankle fins Comments windshield wiper arms for core challenge [place] March Water Level Chest Level Walking Equipment Ankle Floats, ankle fins Level of Assistance Verbal Cues Marching Water Level Chest Level Walking Equipment Ankle Floats, ankle fins Comments arms at sides for drag Backwards Water Level Chest Level Walking Equipment Ankle Floats, ankle fins Comments arms at sides for drag Lower Extremity Exercises [address] way hip Details at wall Body Position Standing Water Level Chest Level Equipment Ankle Floats Reps/Duration 10 each B Comments cues for posture and core engagement Lower Extremity Stretches piriformis Equipment Ankle Floats Reps/Duration 2x30 HS Body Position Standing Equipment Ankle Floats Reps/Duration 2 x 30 B hip flexors Body Position Standing Equipment Ankle Floats Reps/Duration 2 x 30 B Spinal Exercises BB pull down Water Level [place] Equipment M BB Reps/Duration 10 fwd Comments cues for posture [place] Activities [place] Activities Bicycle,Bicycle Backwards, Cross Country,Running,Hip Abduction/Adduction Other Activities deep water han# peng, kenaitze float x 10 min PT-OP-T Assessment and Plan Start: 10/06/21 08:39 Freq: Status: Active Protocol: Document 02/10/22 17:24 SAK (Rec: 02/10/22 17:30 [facility] [id number]) Physical Therapy Assessment Impairments Impairments Activity Tolerance,Balance, Gait,Pain,Posture,ROM, Sensation,Soft Tissue Mobility ,Strength Goals Three Impairment strength Short Term Goal (STG) Pt will improve bilateral hip strength to 4/5 all planes for improved stability in gait STG Duration goal met Machine Skiver Goal (LTG) Pt will complete 10 reps on 30 -second sit to stand test without use of upper extremities as a measure of improved BLE strength 01/04/22: good goal progress; completed 7 reps LTG Duration 03/07/22 Two Impairment standing and walking tolerance Short Term Goal (STG) Pt will stand 20 minutes without increase in baseline pain to improve her ability to cook a simple meal for herself. 11/19/21 GOAL MET STG Duration goal met Machine Skiver Goal (LTG) Pt will walk for 30 minutes without increase in baseline pain to improve her ability to participate in a self- directed walking program. 01/04/22: good goal progress, can walk for 20 min without increase in baseline pain LTG Duration 03/07/22 One Impairment lacks HEP Short Term Goal (STG) Pt will be instructed in HEP for pain management, ROM, and core stabilization to support therapy services provided in clinic. 11/19/21 - GOAL MET STG Duration goal met Machine Skiver Goal (LTG) Pt will be independent with HEP for pain management, strength, and balance to sustain gains made in therapy. 01/04/22: independent with land- based HEP. Continues to progress with aquatic exercise program LTG Duration 03/07/22 Assessment Summary Assessment Added ankle floats and ankle fins for increased challenge/ resistance with LE ex today with good tolerance. Patient unable to perform self- recovery if lost balance wearing ankle floats so instructed not to do on own at this time. She would benefit from further PT to help her fully achieve her goals. Physical Therapy Plan Frequency and Duration Frequency of Treatment 2x/Week Duration of Treatment 8 weeks Plan of Care Start Date 01/04/22 Plan of Care End Date 03/07/22 Therapeutic Interventions Therapeutic Interventions Aquatic Therapy,Balance Training,Gait Training,Home Exercise Program,Joint Mobilizations,Lymphedema Management,Manual Therapy, Neuromuscular Re-education, Self-Care/Home Management,Soft Tissue Mobilization,Taping, Therapeutic Activities, Therapeutic Exercises Modalities Cold Pack/Ice Massage,Electric Stimulation,Hot Packs Next Visit Focus/Plan Next Note Type Treatment Note Next Visit Plan Continue aquatic PT per POC. Further discussion of possibility of land-based PT; patient preference is aquatic PT due to better tolerance.
--- NOTE | 2022-03-31 10:15 | PT.OPPOC ---
Physical, Occupational & Speech Therapy At [facility] Current Diagnoses Malignant neoplasm of unspecified site of unspecified female breast (03/31/22) Lumbago with sciatica, unspecified side (03/31/22) Difficulty in walking, not elsewhere classified (03/31/22) Abnormal posture (03/31/22) Estrogen receptor positive status [ER+] (03/31/22) Visit Care Team Role Provider Type Santhosh Prescott MD Family Provider Non-Staff Primary Care Provider Specialty: Family Practice Address: [address] [place] [address], [address], [place], [address] Email: Corky Forbes MD Attending Provider Non-Staff Referring Provider Specialty: Medical Address: [address] [place] [address], [id number] Email: Plan Of Care PT-OP-T Assessment and Plan Start: 10/06/21 08:39 Freq: Status: Active Protocol: Document 03/31/22 10:15 SAK (Rec: 04/01/22 16:46 SAK [id number]) Physical Therapy Assessment Impairments Impairments Activity Tolerance,Balance, Gait,Pain,Posture,ROM, Sensation,Soft Tissue Mobility ,Strength Goals Three Impairment strength Short Term Goal (STG) Pt will improve bilateral hip strength to 4/5 all planes for improved stability in gait STG Duration goal met Mining Speculator Goal (LTG) Pt will complete 10 reps on 30 -second sit to stand test without use of upper extremities as a measure of improved BLE strength 01/04/22: good goal progress; completed 7 reps LTG Duration 06/01/22 Two Impairment standing and walking tolerance Short Term Goal (STG) Pt will stand 20 minutes without increase in baseline pain to improve her ability to cook a simple meal for herself. 11/19/21 GOAL MET STG Duration goal met [employer] Speculator Goal (LTG) Pt will walk for 30 minutes without increase in baseline pain to improve her ability to participate in a self- directed walking program. 01/04/22: good goal progress, can walk for 20 min without increase in baseline pain LTG Duration 06/01/22 One Impairment lacks HEP Short Term Goal (STG) Pt will be instructed in HEP for pain management, ROM, and core stabilization to support therapy services provided in clinic. 11/19/21 - GOAL MET STG Duration goal met Mining Speculator Goal (LTG) Pt will be independent with HEP for pain management, strength, and balance to sustain gains made in therapy. 01/04/22: independent with land- based HEP. Continues to progress with aquatic exercise program 03/30/22: not seen in aquatic PT for greater than 1 month, unable to progress exercises today in more pain. Benefits from deep water traction LTG Duration 06/01/22 Assessment Summary Assessment Patient comes to PT c/o increased pain since last seen in PT more than 1 month ago. Admits to not coming to the pool for any independent exercise, and not consistent with HEP at home. Stressed the importance of consistent exercise and attention to posture and body mechancis with all activities at home/ work. Would benefit from further PT to help her decrease her pain, improve her core strength and flexibility through her spine and hips, and help her return to prior level of function. Physical Therapy Plan Frequency and Duration Frequency of Treatment 1x/Week Duration of Treatment 8 weeks Plan of Care Start Date 03/31/22 Plan of Care End Date 06/01/22 Therapeutic Interventions Therapeutic Interventions Aquatic Therapy,Balance Training,Gait Training,Home Exercise Program,Joint Mobilizations,Lymphedema Management,Manual Therapy, Neuromuscular Re-education, Self-Care/Home Management,Soft Tissue Mobilization,Taping, Therapeutic Activities, Therapeutic Exercises Modalities Cold Pack/Ice Massage,Electric Stimulation,Hot Packs Next Visit Focus/Plan Next Note Type Treatment Note Next Visit Plan Continue aquatic PT per patient preference to address PT goals, review HEP, progress as indicated. and stress increased compliance for improved benefit. Plan of Care Dates Plan of Care Start Date 03/31/22 Plan of Care End Date 06/01/22 Electronically Signed by: Yarely Alex, PT 04/01/22 1700 If you are in agreement with this Plan of Care, please return a signed and dated copy. I have reviewed this Plan of Care and certify that the skilled therapy services above are required to meet the patient?s needs. Physician Signature Date Printed Name and Credentials Clinical Instructor Signature Printed Name and Credentials
--- NOTE | 2022-03-31 10:15 | PT.OTN ---
Current Diagnoses Malignant neoplasm of unspecified site of unspecified female breast (03/31/22) Lumbago with sciatica, unspecified side (03/31/22) Difficulty in walking, not elsewhere classified (03/31/22) Abnormal posture (03/31/22) Estrogen receptor positive status [ER+] (03/31/22) Physical Therapy Treatment Note PT-OP-A Visit Information Start: 10/06/21 08:39 Freq: Status: Active Protocol: Document 03/31/22 10:15 SAK (Rec: 04/01/22 16:46 SAK [id number]) Out-Patient Physical Therapy Visit Information Visit Information Visit Type Aquatic Treatment Note Visit Start Time 10:15 Visit Stop Time 11:00 Total Visit Minutes 45 Visit Number 15 Precautions Precautions osteopenia PT-OP-B Current Condition Start: 10/06/21 08:39 Freq: Status: Active Protocol: Document 10/07/21 11:15 AW (Rec: 10/06/21 08:45 AW [id number]) Current Condition History of Current Condition Onset Date chronic - at least 3 years for back and at least 3 months for shoulders Current Complaints back and leg pain; painful and tight shoulders History of Current Condition 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 Her mother had very limited mobility in the last three years and Matilda was assisting with lots of heavy transfers. She believes her back pain started around that time. She wore a back brace for support at times but isn't sure it helped much. She now has pain that starts in her low back and radiates into buttock and lateral thigh and lateral calf . It is worse on the right but present bilaterally. She has numbness in similar distribution. Pt takes [place] ~ every other day when pain gets very bad. Smoking marijuana helps distract from her pain. 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 She has completed adjuvant radiation therapy as of August. She will start anastrozole soon and is concerned about reductions in estrogen and estradiol. Since cancer treatment, she has grown aware of tight and painful shoulders bilaterally (left worse than right) and reports painful lumps on the left side under breast tissue. Scar tissue seems tight and restricts movement. Recent nuc med bone scan was negative for metastasis. Matilda lives alone since the of her mother. She depends on her logan. She is considering a cancer support group and has good friends. Prior Treatments and Tests - Chiropractic - Nuc med bone scan September 2021 with no evidence of metastasis. - Lumbar MRI 2018: Lower lumbar spine degenerative changes are seen, which are most prominent at the L5-S1 level. - Cervical MRI 2018: Multilevel disc bulges. Spinal stenosis is present most notable at C5-6 secondary to disc bulge. Multiple foraminal narrowing most notable at C5- 6 secondary to uncovertebral arthropathy. Treatment Goals Patient/Caregiver Goals More walking, more exercise, possibly join a gym. Has exercise bike and some weights at home. Lift without pain. Personal Factors Other Personal Factors That May Effect a fib, BMI 37, chronic low Therapy/Recovery back pain PT-OP-C Subjective Start: 10/06/21 08:39 Freq: Status: Active Protocol: Document 03/31/22 10:15 SAK (Rec: 04/01/22 16:46 SAK [id number]) OP-PT Subjective Patient Comments Patient Comments Patient reports hurting more than when last seen in aquatic PT,hasn't been back to the pool due to busy work schedule , admits not making time and needs to get back to it. PT-OP-D Balance Start: 10/06/21 08:39 Freq: Status: Active Protocol: Document 10/07/21 11:15 AW (Rec: 10/07/21 13:41 AW [id number]) Balance Tests Single Limb Standing Single Limb- Right 3 sec with fingertip support on wall Single Limb- Left 5 sec with fingertip support on wall PT-OP-F Manual Assessment Start: 10/06/21 08:39 Freq: Status: Active Protocol: Document 10/07/21 11:15 AW (Rec: 10/07/21 13:44 AW [id number]) Manual Assessments Soft Tissue Assessment Soft Tissue Mobility Assessment Severely limited internal rotation in bilateral hips. TTP at bilateral greater trochanters, deep external rotators, and gluteal region PT-OP-G Mobility & Gait Start: 10/06/21 08:39 Freq: Status: Active Protocol: Document 10/07/21 11:15 AW (Rec: 10/07/21 16:23 AW [id number]) OP Mobility Evaluation Bed Mobility Rolling Difficult and painful rolling Supine to and from Sit Increased time and cues needed for log roll Transfers Sit to Stand Definite need for use of hands OP Gait Assessment Comments Gait Comments Pt ambulates independently with lateral lean in ipsilateral stance, wide base of support, decreased RLE stance time, reduced heel strike and weak toe off. Generally unsteady. PT-OP-H Neuro Start: 10/06/21 08:39 Freq: Status: Active Protocol: Document 10/07/21 11:15 AW (Rec: 10/07/21 16:23 AW [id number]) Sensation Evaluation Gross Sensation Gross Sensation Left LE Impaired,Right LE Impaired Comments Summary Comments Pain and numbness in buttocks and posterolateral thigh, lateral calf. Right more significantly affected than left. Deep Tendon Reflex & Clonus Assessment Deep Tendon Reflex Bicep Deep Tendon Reflex 2+ Normal Achilles Deep Tendon Reflex 1+ Diminished Patellar Deep Tendon Reflex 2+ Normal PT-OP-J Posture/Palpation/Skin Start: 10/06/21 08:39 Freq: Status: Active Protocol: Document 10/07/21 11:15 AW (Rec: 10/07/21 16:23 AW [id number]) Posture Evaluation Comments Posture Comments Flat lumbar spine with hinge at L4-5. Extension severely limited. Decreased weightbearing RLE in static stance and in gait Skin Assessment Incisional Assessment Incision Appearance/Comments Left lumpectomy scar with significantly limited mobility . PT-OP-K Range of Motion Start: 10/06/21 08:39 Freq: Status: Active Protocol: Document 10/07/21 11:15 AW (Rec: 10/08/21 15:10 AW [id number]) Cervical Spine Range of Motion Cervical Spine Active Testing Position Sitting Flexion 45 Extension 25 Rotation Left 40 Rotation Right 40 Lateral Flexion Left 20 Lateral Flexion Right 15 ROM Limitations Soft Tissue Tightness,Pain Comments Lateral flexion limited by increased tone in upper traps bilaterally Lumbar Spine Range of Motion Lumbar Spine Active Testing Position Standing Comments Pt is able to bend forward with fingertips to within 8 from floor. Positive [place] sign. Lateral flexion severely limited and pt can only slide fingertips ~3 inches toward lateral knee. Shoulder Goniometric Range of Motion Shoulder Right Active Testing Position Sitting Flexion 140 Abduction 135 External Rotation at 0 degrees Abduction 50 Internal Rotation Behind Back (text) T10 Left Active Testing Position Sitting Flexion 140 Abduction 137 External Rotation at 0 degrees Abduction 55 Internal Rotation Behind Back (text) T12 Hip Goniometric Range of Motion Hip bilat Testing Position Supine Comments Internal rotation severely limited and end-range PROM does reproduce pain PT-OP-L Special Tests Start: 10/06/21 08:39 Freq: Status: Active Protocol: Document 10/07/21 11:15 AW (Rec: 10/07/21 16:23 AW [id number]) Special Tests Lumbar Spine Special Tests Slump Test Results positive for pain, numbness, tingling RLE 2nd most provocative position PT-OP-M Strength Start: 10/06/21 08:39 Freq: Status: Active Protocol: Document 10/07/21 11:15 AW (Rec: 10/07/21 16:23 AW [id number]) Hip Strength Hip Manual Muscle Testing Right Flexion (L2) 4- Good- Extension (S1) 3 Fair Abduction 3 Fair Left Flexion (L2) 4 Good Extension (S1) 3+ Fair+ Abduction 3+ Fair+ Knee Strength Knee Manual Muscle Testing bilat Flexion (S2) 4 Good Extension (L3) 4 Good Ankle/Foot Strength Ankle and Foot Manual Muscle Testing bilat Dorsiflexion (L4) 4 Good Comments Pt unable to complete two single leg heel lifts with good elevation. Toe Strength Toe Manual Muscle Testing Great Toe Extension 4+ Good+ PT-OP-Q Treatments Start: 10/06/21 08:39 Freq: Status: Active Protocol: Document 12/04/21 10:27 MA (Rec: 12/04/21 11:17 MA [id number]) Cardio Equipment Recumbent Elliptical ([employer]) Duration (Minutes) 6 Resistance 5 Seat Position 8 Other pt requested decreasing resistance to 3 after 3 minutes Therapeutic Exercises Supine Exercises piriformis stretch Side bilateral Reps/Minutes 30 ea Comments in seated today Standing Exercises lateral band walk Standing Exercise Name lateral band walk Resistance yellow loop Reps/Minutes 10' lap x 4 Comments R side LBP while stepping today Other Exercises Child's Pose Other Exercise Name modified in standing- reaching laterally Side bilateral Reps/Minutes 2x30 ea Comments added to HEP sit to stand Other Exercise Name sit to stand Equipment Used green chair, band around knees to correct varus Reps/Minutes 2x10 Comments HEP Manual Therapy Treatment Soft Tissue Mobilization right hip Body Location glutes, QL Mobilization Type Strumming,Sustained Pressure, Trigger Point Release Intensity/Depth Moderate Body Position Sidelying Comments pt able to tolerate SL this session Self-Care/Home Management Treatment Education Patient Education Home Exercise Program Other Education Added modified standing child' s pose, reaching laterally to HEP. Educated pt on using rolling pin to lateral RLE just like she uses ball to low back and glutes to release mm . PT-OP-R Modalities Start: 10/06/21 08:39 Freq: Status: Active Protocol: Document 12/04/21 10:27 MA (Rec: 12/04/21 11:17 MA [id number]) Hot Pack/Cold Pack Treatment Hot Pack Location lumbar Patient Position Hooklying Treatment Duration (minutes) 15 Patient Tolerance Good Comments end of tx PT-OP-S Aquatic Treatment Start: 10/06/21 08:39 Freq: Status: Active Protocol: Document 03/31/22 10:15 SAK (Rec: 04/01/22 16:46 SAK [id number]) Aquatics Treatment Pool Entry/Exit Pool Entry/Exit Method Stairs Assistance Independent Water Walking Sideways Water Level Chest Level Walking Equipment Ankle Floats, ankle fins Comments windshield wiper arms for core challenge [place] March Water Level Chest Level Walking Equipment ankle fins Level of Assistance Verbal Cues Marching Water Level Chest Level Walking Equipment ankle fins Comments arms at sides for drag Backwards Water Level Chest Level Walking Equipment ankle fins Comments arms at sides for drag Forwards Water Level Chest Level Walking Equipment Resistance Fins Comments arms at sides for drag Lower Extremity Exercises 4 way hip Details at wall Body Position Standing Water Level Chest Level Equipment Resistance Fins Reps/Duration 10 each B Comments cues for posture and core engagement Lower Extremity Stretches piriformis Equipment Ankle Floats Reps/Duration 2x30 HS Body Position Standing Equipment Ankle Floats Reps/Duration 2 x 30 B hip flexors Body Position Standing Equipment Ankle Floats Reps/Duration 2 x 30 B Spinal Exercises BB pull down Details peng and unil Water Level [place] Equipment M BB Reps/Duration 10 fwd Comments cues for posture [place] Activities [place] Activities Bicycle,Bicycle Backwards, Cross Country,Running,Hip Abduction/Adduction Other Activities deep water han# peng, [place] float x 10 min PT-OP-T Assessment and Plan Start: 10/06/21 08:39 Freq: Status: Active Protocol: Document 03/31/22 10:15 SAK (Rec: 04/01/22 16:46 SAK [id number]) Physical Therapy Assessment Impairments Impairments Activity Tolerance,Balance, Gait,Pain,Posture,ROM, Sensation,Soft Tissue Mobility ,Strength Goals Three Impairment strength Short Term Goal (STG) Pt will improve bilateral hip strength to 4/5 all planes for improved stability in gait STG Duration goal met Retirement Goal (LTG) Pt will complete 10 reps on 30 -second sit to stand test without use of upper extremities as a measure of improved BLE strength 01/04/22: good goal progress; completed 7 reps LTG Duration 06/01/22 Two Impairment standing and walking tolerance Short Term Goal (STG) Pt will stand 20 minutes without increase in baseline pain to improve her ability to cook a simple meal for herself. 11/19/21 GOAL MET STG Duration goal met Retirement Goal (LTG) Pt will walk for 30 minutes without increase in baseline pain to improve her ability to participate in a self- directed walking program. 01/04/22: good goal progress, can walk for 20 min without increase in baseline pain LTG Duration 06/01/22 One Impairment lacks HEP Short Term Goal (STG) Pt will be instructed in HEP for pain management, ROM, and core stabilization to support therapy services provided in clinic. 11/19/21 - GOAL MET STG Duration goal met Retirement Goal (LTG) Pt will be independent with HEP for pain management, strength, and balance to sustain gains made in therapy. 01/04/22: independent with land- based HEP. Continues to progress with aquatic exercise program 03/30/22: not seen in aquatic PT for greater than 1 month, unable to progress exercises today in more pain. Benefits from deep water traction LTG Duration 06/01/22 Assessment Summary Assessment Patient comes to PT c/o increased pain since last seen in PT more than 1 month ago. Admits to not coming to the pool for any independent exercise, and not consistent with HEP at home. Stressed the importance of consistent exercise and attention to posture and body mechancis with all activities at home/ work. Would benefit from further PT to help her decrease her pain, improve her core strength and flexibility through her spine and hips, and help her return to prior level of function. Physical Therapy Plan Frequency and Duration Frequency of Treatment 1x/Week Duration of Treatment 8 weeks Plan of Care Start Date 03/31/22 Plan of Care End Date 06/01/22 Therapeutic Interventions Therapeutic Interventions Aquatic Therapy,Balance Training,Gait Training,Home Exercise Program,Joint Mobilizations,Lymphedema Management,Manual Therapy, Neuromuscular Re-education, Self-Care/Home Management,Soft Tissue Mobilization,Taping, Therapeutic Activities, Therapeutic Exercises Modalities Cold Pack/Ice Massage,Electric Stimulation,Hot Packs Next Visit Focus/Plan Next Note Type Treatment Note Next Visit Plan Continue aquatic PT per patient preference to address PT goals, review HEP, progress as indicated. and stress increased compliance for improved benefit.
--- NOTE | 2022-04-07 14:59 | PT.OTN ---
Current Diagnoses Malignant neoplasm of unspecified site of unspecified female breast (04/07/22) Lumbago with sciatica, unspecified side (04/07/22) Difficulty in walking, not elsewhere classified (04/07/22) Abnormal posture (04/07/22) Estrogen receptor positive status [ER+] (04/07/22) Physical Therapy Treatment Note PT-OP-A Visit Information Start: 10/06/21 08:39 Freq: Status: Active Protocol: Document 04/07/22 14:34 LJ (Rec: 04/07/22 14:59 LJ [id number]) Out-Patient Physical Therapy Visit Information Visit Information Visit Type Aquatic Treatment Note Visit Start Time 11:00 Visit Stop Time 11:45 Total Visit Minutes 45 Visit Number 16 Number of FLATWORK FOLDER Visits 1 Precautions Precautions osteopenia PT-OP-B Current Condition Start: 10/06/21 08:39 Freq: Status: Active Protocol: Document 10/07/21 11:15 AW (Rec: 10/06/21 08:45 AW [id number]) Current Condition History of Current Condition Onset Date chronic - at least 3 years for back and at least 3 months for shoulders Current Complaints back and leg pain; painful and tight shoulders History of Current Condition 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 Her mother had very limited mobility in the last three years and Matilda was assisting with lots of heavy transfers. She believes her back pain started around that time. She wore a back brace for support at times but isn't sure it helped much. She now has pain that starts in her low back and radiates into buttock and lateral thigh and lateral calf . It is worse on the right but present bilaterally. She has numbness in similar distribution. Pt takes [place] ~ every other day when pain gets very bad. Smoking marijuana helps distract from her pain. 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 She has completed adjuvant radiation therapy as of August. She will start anastrozole soon and is concerned about reductions in estrogen and estradiol. Since cancer treatment, she has grown aware of tight and painful shoulders bilaterally (left worse than right) and reports painful lumps on the left side under breast tissue. Scar tissue seems tight and restricts movement. Recent nuc med bone scan was negative for metastasis. Matilda lives alone since the of her mother. She depends on her logan. She is considering a cancer support group and has good friends. Prior Treatments and Tests - Chiropractic - Nuc med bone scan September 2021 with no evidence of metastasis. - Lumbar MRI 2018: Lower lumbar spine degenerative changes are seen, which are most prominent at the L5-S1 level. - Cervical MRI 2018: Multilevel disc bulges. Spinal stenosis is present most notable at C5-6 secondary to disc bulge. Multiple foraminal narrowing most notable at C5- 6 secondary to uncovertebral arthropathy. Treatment Goals Patient/Caregiver Goals More walking, more exercise, possibly join a gym. Has exercise bike and some weights at home. Lift without pain. Personal Factors Other Personal Factors That May Effect a fib, BMI 37, chronic low Therapy/Recovery back pain PT-OP-C Subjective Start: 10/06/21 08:39 Freq: Status: Active Protocol: Document 04/07/22 14:34 LJ (Rec: 04/07/22 14:59 LJ [id number]) OP-PT Subjective Patient Comments Patient Comments Pt sttes she has candido working in her garden and feels stiff. Her back is a bit painful and she believes the cause is not doing exercises and attending the pool. PT-OP-D Balance Start: 10/06/21 08:39 Freq: Status: Active Protocol: Document 10/07/21 11:15 AW (Rec: 10/07/21 13:41 AW [id number]) Balance Tests Single Limb Standing Single Limb- Right 3 sec with fingertip support on wall Single Limb- Left 5 sec with fingertip support on wall PT-OP-F Manual Assessment Start: 10/06/21 08:39 Freq: Status: Active Protocol: Document 10/07/21 11:15 AW (Rec: 10/07/21 13:44 AW [id number]) Manual Assessments Soft Tissue Assessment Soft Tissue Mobility Assessment Severely limited internal rotation in bilateral hips. TTP at bilateral greater trochanters, deep external rotators, and gluteal region PT-OP-G Mobility & Gait Start: 10/06/21 08:39 Freq: Status: Active Protocol: Document 10/07/21 11:15 AW (Rec: 10/07/21 16:23 AW [id number]) OP Mobility Evaluation Bed Mobility Rolling Difficult and painful rolling Supine to and from Sit Increased time and cues needed for log roll Transfers Sit to Stand Definite need for use of hands OP Gait Assessment Comments Gait Comments Pt ambulates independently with lateral lean in ipsilateral stance, wide base of support, decreased RLE stance time, reduced heel strike and weak toe off. Generally unsteady. PT-OP-H Neuro Start: 10/06/21 08:39 Freq: Status: Active Protocol: Document 10/07/21 11:15 AW (Rec: 10/07/21 16:23 AW [id number]) Sensation Evaluation Gross Sensation Gross Sensation Left LE Impaired,Right LE Impaired Comments Summary Comments Pain and numbness in buttocks and posterolateral thigh, lateral calf. Right more significantly affected than left. Deep Tendon Reflex & Clonus Assessment Deep Tendon Reflex Bicep Deep Tendon Reflex 2+ Normal Achilles Deep Tendon Reflex 1+ Diminished Patellar Deep Tendon Reflex 2+ Normal PT-OP-J Posture/Palpation/Skin Start: 10/06/21 08:39 Freq: Status: Active Protocol: Document 10/07/21 11:15 AW (Rec: 10/07/21 16:23 AW [id number]) Posture Evaluation Comments Posture Comments Flat lumbar spine with hinge at L4-5. Extension severely limited. Decreased weightbearing RLE in static stance and in gait Skin Assessment Incisional Assessment Incision Appearance/Comments Left lumpectomy scar with significantly limited mobility . PT-OP-K Range of Motion Start: 10/06/21 08:39 Freq: Status: Active Protocol: Document 10/07/21 11:15 AW (Rec: 10/08/21 15:10 AW [id number]) Cervical Spine Range of Motion Cervical Spine Active Testing Position Sitting Flexion 45 Extension 25 Rotation Left 40 Rotation Right 40 Lateral Flexion Left 20 Lateral Flexion Right 15 ROM Limitations Soft Tissue Tightness,Pain Comments Lateral flexion limited by increased tone in upper traps bilaterally Lumbar Spine Range of Motion Lumbar Spine Active Testing Position Standing Comments Pt is able to bend forward with fingertips to within 8 from floor. Positive Danica sign. Lateral flexion severely limited and pt can only slide fingertips ~3 inches toward lateral knee. Shoulder Goniometric Range of Motion Shoulder Right Active Testing Position Sitting Flexion 140 Abduction 135 External Rotation at 0 degrees Abduction 50 Internal Rotation Behind Back (text) T10 Left Active Testing Position Sitting Flexion 140 Abduction 137 External Rotation at 0 degrees Abduction 55 Internal Rotation Behind Back (text) T12 Hip Goniometric Range of Motion Hip bilat Testing Position Supine Comments Internal rotation severely limited and end-range PROM does reproduce pain PT-OP-L Special Tests Start: 10/06/21 08:39 Freq: Status: Active Protocol: Document 10/07/21 11:15 AW (Rec: 10/07/21 16:23 AW [id number]) Special Tests Lumbar Spine Special Tests Slump Test Results positive for pain, numbness, tingling RLE 2nd most provocative position PT-OP-M Strength Start: 10/06/21 08:39 Freq: Status: Active Protocol: Document 10/07/21 11:15 AW (Rec: 10/07/21 16:23 AW [id number]) Hip Strength Hip Manual Muscle Testing Right Flexion (L2) 4- Good- Extension (S1) 3 Fair Abduction 3 Fair Left Flexion (L2) 4 Good Extension (S1) 3+ Fair+ Abduction 3+ Fair+ Knee Strength Knee Manual Muscle Testing bilat Flexion (S2) 4 Good Extension (L3) 4 Good Ankle/Foot Strength Ankle and Foot Manual Muscle Testing bilat Dorsiflexion (L4) 4 Good Comments Pt unable to complete two single leg heel lifts with good elevation. Toe Strength Toe Manual Muscle Testing Great Toe Extension 4+ Good+ PT-OP-Q Treatments Start: 10/06/21 08:39 Freq: Status: Active Protocol: Document 12/04/21 10:27 MA (Rec: 12/04/21 11:17 MA [id number]) Cardio Equipment Recumbent Elliptical (BiodFive minutes) Duration (Minutes) 6 Resistance 5 Seat Position 8 Other pt requested decreasing resistance to 3 after 3 minutes Therapeutic Exercises Supine Exercises piriformis stretch Side bilateral Reps/Minutes 30 ea Comments in seated today Standing Exercises lateral band walk Standing Exercise Name lateral band walk Resistance yellow loop Reps/Minutes 10' lap x 4 Comments R side LBP while stepping today Other Exercises Child's Pose Other Exercise Name modified in standing- reaching laterally Side bilateral Reps/Minutes 2x30 ea Comments added to HEP sit to stand Other Exercise Name sit to stand Equipment Used green chair, band around knees to correct varus Reps/Minutes 2x10 Comments HEP Manual Therapy Treatment Soft Tissue Mobilization right hip Body Location glutes, QL Mobilization Type Strumming,Sustained Pressure, Trigger Point Release Intensity/Depth Moderate Body Position Sidelying Comments pt able to tolerate SL this session Self-Care/Home Management Treatment Education Patient Education Home Exercise Program Other Education Added modified standing child' s pose, reaching laterally to HEP. Educated pt on using rolling pin to lateral RLE just like she uses ball to low back and glutes to release mm . PT-OP-R Modalities Start: 10/06/21 08:39 Freq: Status: Active Protocol: Document 12/04/21 10:27 MA (Rec: 12/04/21 11:17 MA [id number]) Hot Pack/Cold Pack Treatment Hot Pack Location lumbar Patient Position Hooklying Treatment Duration (minutes) 15 Patient Tolerance Good Comments end of tx PT-OP-S Aquatic Treatment Start: 10/06/21 08:39 Freq: Status: Active Protocol: Document 04/07/22 14:34 LJ (Rec: 04/07/22 14:59 LJ [id number]) Aquatics Treatment Pool Entry/Exit Pool Entry/Exit Method Stairs Assistance Independent Water Walking Lunge Walk Water Level Waist Level Walking Equipment blue ankle fins Level of Assistance Verbal Cues Comments tactile cueing for upright posture Sideways Water Level Chest Level Walking Equipment blue ankle fins Comments windshield wiper arms for core challenge [place] Water Level Chest Level Walking Equipment blue ankle fins Level of Assistance Verbal Cues Backwards Water Level Chest Level Walking Equipment blue ankle fins Forwards Water Level Chest Level Walking Equipment blue ankle Fins Comments arms at sides for drag Lower Extremity Exercises 4 way hip Details at wall Body Position Standing Water Level Chest Level Equipment Resistance Fins Reps/Duration 10 each B Comments cues for posture and core engagement Lower Extremity Stretches ITB Body Position Standing Reps/Duration 1 min B piriformis Equipment Ankle Floats Reps/Duration 2x30 free the hip Details at wall Body Position Standing Reps/Duration 10 B gastroc/soleus Details at wall Body Position Standing Reps/Duration 2 x 30 B HS Body Position Standing Equipment Large Noodle Reps/Duration 2 x 30 B hip flexors Body Position Standing Reps/Duration 2 x 30 B Comments quads also-manual assist; contract/ relax Upper Extremity Exercises corner stretch Body Position Standing Reps/Duration 45 sec x2 Spinal Exercises LB stretch on wall Reps/Duration 2x 1 ' BB pull down Details peng Water Level [place] Equipment M BB Reps/Duration 10 abd Comments cues for posture [place] Activities [place] Activities Bicycle,Bicycle Backwards, Cross Country,Hip Abduction/ Adduction Other Activities deep water han# peng, false pass float x 15 min pendulum hacky sack plank w/knee to ipsilat elbow DLS w/lower body mvmt Equipment belt, BBs Manual Techniques Aquatic Massage Bilateral ITB AquaStretch technique for release of fascial adhesions. Demonstrated and performed brief ball rolling release for pt to trial at home. PT-OP-T Assessment and Plan Start: 10/06/21 08:39 Freq: Status: Active Protocol: Document 04/07/22 14:34 [id number] (Rec: 04/07/22 14:59 [id number]) Physical Therapy Assessment Rehab Potential Rehabilitation Potential Fair Evaluation Complexity Number of Personal Factors/Comorbidities 3 or More Number of Body Systems Impaired 3 Clinical Presentation at Evaluation Evolving Impairments Impairments Activity Tolerance,Balance, Gait,Pain,Posture,ROM, Sensation,Soft Tissue Mobility ,Strength Goals Three Impairment strength Short Term Goal (STG) Pt will improve bilateral hip strength to 4/5 all planes for improved stability in gait STG Duration goal met Body Care Manager Goal (LTG) Pt will complete 10 reps on 30 -second sit to stand test without use of upper extremities as a measure of improved BLE strength 01/04/22: good goal progress; completed 7 reps LTG Duration 06/01/22 Two Impairment standing and walking tolerance Short Term Goal (STG) Pt will stand 20 minutes without increase in baseline pain to improve her ability to cook a simple meal for herself. 11/19/21 GOAL MET STG Duration goal met Fpc Goal (LTG) Pt will walk for 30 minutes without increase in baseline pain to improve her ability to participate in a self- directed walking program. 01/04/22: good goal progress, can walk for 20 min without increase in baseline pain LTG Duration 06/01/22 One Impairment lacks HEP Short Term Goal (STG) Pt will be instructed in HEP for pain management, ROM, and core stabilization to support therapy services provided in clinic. 11/19/21 - GOAL MET STG Duration goal met Body Care Manager Goal (LTG) Pt will be independent with HEP for pain management, strength, and balance to sustain gains made in therapy. 01/04/22: independent with land- based HEP. Continues to progress with aquatic exercise program 03/30/22: not seen in aquatic PT for greater than 1 month, unable to progress exercises today in more pain. Benefits from deep water traction LTG Duration 06/01/22 Progress Towards Goals Progress Towards Goals Progressing Toward Goals Assessment Summary Assessment Pt tolerated all exercises with fins. No c/o pain. Fins were not worn in deep water exercises. She stayed an additional 30 min continuing to exercise LEs in deep water. Advised to not overdo exercising due to lower perceived rate of exertion in water compared to land. Pt also advised to drink lots of water after so much exercise. Continued AT would be beneficial to improve soft tissue mobility in bilateral ITBs, low back, hips and knees in addition to improving strength to return to higher functional level and endurance . Physical Therapy Plan Frequency and Duration Frequency of Treatment 1x/Week Duration of Treatment 8 weeks Plan of Care Start Date 03/31/22 Plan of Care End Date 06/01/22 Therapeutic Interventions Therapeutic Interventions Aquatic Therapy,Balance Training,Gait Training,Home Exercise Program,Joint Mobilizations,Lymphedema Management,Manual Therapy, Neuromuscular Re-education, Self-Care/Home Management,Soft Tissue Mobilization,Taping, Therapeutic Activities, Therapeutic Exercises Modalities Cold Pack/Ice Massage,Electric Stimulation,Hot Packs Next Visit Focus/Plan Next Note Type Treatment Note Next Visit Plan Continue aquatic PT per patient preference to address PT goals, review HEP, progress as indicated. and stress increased compliance for improved benefit.
--- NOTE | 2022-04-28 15:37 | PT.OTN ---
Current Diagnoses Malignant neoplasm of unspecified site of unspecified female breast (04/07/22) Lumbago with sciatica, unspecified side (04/07/22) Difficulty in walking, not elsewhere classified (04/07/22) Abnormal posture (04/07/22) Estrogen receptor positive status [ER+] (04/07/22) Physical Therapy Treatment Note PT-OP-A Visit Information Start: 10/06/21 08:39 Freq: Status: Active Protocol: Document 04/28/22 15:22 LJ (Rec: 04/28/22 15:37 LJ [id number]) Out-Patient Physical Therapy Visit Information Visit Information Visit Type Aquatic Treatment Note Visit Start Time 12:30 Visit Stop Time 01:15 Total Visit Minutes 45 Visit Number 17 Number of RADIO TALK SHOW HOST Visits 2 Precautions Precautions osteopenia PT-OP-B Current Condition Start: 10/06/21 08:39 Freq: Status: Active Protocol: Document 10/07/21 11:15 AW (Rec: 10/06/21 08:45 AW [id number]) Current Condition History of Current Condition Onset Date chronic - at least 3 years for back and at least 3 months for shoulders Current Complaints back and leg pain; painful and tight shoulders History of Current Condition 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 Her mother had very limited mobility in the last three years and Matilda was assisting with lots of heavy transfers. She believes her back pain started around that time. She wore a back brace for support at times but isn't sure it helped much. She now has pain that starts in her low back and radiates into buttock and lateral thigh and lateral calf . It is worse on the right but present bilaterally. She has numbness in similar distribution. Pt takes Irvona ~ every other day when pain gets very bad. Smoking marijuana helps distract from her pain. 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 She has completed adjuvant radiation therapy as of August. She will start anastrozole soon and is concerned about reductions in estrogen and estradiol. Since cancer treatment, she has grown aware of tight and painful shoulders bilaterally (left worse than right) and reports painful lumps on the left side under breast tissue. Scar tissue seems tight and restricts movement. Recent nuc med bone scan was negative for metastasis. Matilda lives alone since the of her mother. She depends on her logan. She is considering a cancer support group and has good friends. Prior Treatments and Tests - Chiropractic - Nuc med bone scan September 2021 with no evidence of metastasis. - Lumbar MRI 2018: Lower lumbar spine degenerative changes are seen, which are most prominent at the L5-S1 level. - Cervical MRI 2018: Multilevel disc bulges. Spinal stenosis is present most notable at C5-6 secondary to disc bulge. Multiple foraminal narrowing most notable at C5- 6 secondary to uncovertebral arthropathy. Treatment Goals Patient/Caregiver Goals More walking, more exercise, possibly join a gym. Has exercise bike and some weights at home. Lift without pain. Personal Factors Other Personal Factors That May Effect a fib, BMI 37, chronic low Therapy/Recovery back pain PT-OP-C Subjective Start: 10/06/21 08:39 Freq: Status: Active Protocol: Document 04/28/22 15:22 LJ (Rec: 04/28/22 15:37 LJ [id number]) OP-PT Subjective Patient Comments Patient Comments Pt states she has been doing a few walks and has been dog sitting. She has no c/o pain, just stiffness PT-OP-D Balance Start: 10/06/21 08:39 Freq: Status: Active Protocol: Document 10/07/21 11:15 AW (Rec: 10/07/21 13:41 AW [id number]) Balance Tests Single Limb Standing Single Limb- Right 3 sec with fingertip support on wall Single Limb- Left 5 sec with fingertip support on wall PT-OP-F Manual Assessment Start: 10/06/21 08:39 Freq: Status: Active Protocol: Document 10/07/21 11:15 AW (Rec: 10/07/21 13:44 AW [id number]) Manual Assessments Soft Tissue Assessment Soft Tissue Mobility Assessment Severely limited internal rotation in bilateral hips. TTP at bilateral greater trochanters, deep external rotators, and gluteal region PT-OP-G Mobility & Gait Start: 10/06/21 08:39 Freq: Status: Active Protocol: Document 10/07/21 11:15 AW (Rec: 10/07/21 16:23 AW [id number]) OP Mobility Evaluation Bed Mobility Rolling Difficult and painful rolling Supine to and from Sit Increased time and cues needed for log roll Transfers Sit to Stand Definite need for use of hands OP Gait Assessment Comments Gait Comments Pt ambulates independently with lateral lean in ipsilateral stance, wide base of support, decreased RLE stance time, reduced heel strike and weak toe off. Generally unsteady. PT-OP-H Neuro Start: 10/06/21 08:39 Freq: Status: Active Protocol: Document 10/07/21 11:15 AW (Rec: 10/07/21 16:23 AW [id number]) Sensation Evaluation Gross Sensation Gross Sensation Left LE Impaired,Right LE Impaired Comments Summary Comments Pain and numbness in buttocks and posterolateral thigh, lateral calf. Right more significantly affected than left. Deep Tendon Reflex & Clonus Assessment Deep Tendon Reflex Bicep Deep Tendon Reflex 2+ Normal Achilles Deep Tendon Reflex 1+ Diminished Patellar Deep Tendon Reflex 2+ Normal PT-OP-J Posture/Palpation/Skin Start: 10/06/21 08:39 Freq: Status: Active Protocol: Document 10/07/21 11:15 AW (Rec: 10/07/21 16:23 AW [id number]) Posture Evaluation Comments Posture Comments Flat lumbar spine with hinge at L4-5. Extension severely limited. Decreased weightbearing RLE in static stance and in gait Skin Assessment Incisional Assessment Incision Appearance/Comments Left lumpectomy scar with significantly limited mobility . PT-OP-K Range of Motion Start: 10/06/21 08:39 Freq: Status: Active Protocol: Document 10/07/21 11:15 AW (Rec: 10/08/21 15:10 AW [id number]) Cervical Spine Range of Motion Cervical Spine Active Testing Position Sitting Flexion 45 Extension 25 Rotation Left 40 Rotation Right 40 Lateral Flexion Left 20 Lateral Flexion Right 15 ROM Limitations Soft Tissue Tightness,Pain Comments Lateral flexion limited by increased tone in upper traps bilaterally Lumbar Spine Range of Motion Lumbar Spine Active Testing Position Standing Comments Pt is able to bend forward with fingertips to within 8 from floor. Positive Larned sign. Lateral flexion severely limited and pt can only slide fingertips ~3 inches toward lateral knee. Shoulder Goniometric Range of Motion Shoulder Right Active Testing Position Sitting Flexion 140 Abduction 135 External Rotation at 0 degrees Abduction 50 Internal Rotation Behind Back (text) T10 Left Active Testing Position Sitting Flexion 140 Abduction 137 External Rotation at 0 degrees Abduction 55 Internal Rotation Behind Back (text) T12 Hip Goniometric Range of Motion Hip bilat Testing Position Supine Comments Internal rotation severely limited and end-range PROM does reproduce pain PT-OP-L Special Tests Start: 10/06/21 08:39 Freq: Status: Active Protocol: Document 10/07/21 11:15 AW (Rec: 10/07/21 16:23 AW [id number]) Special Tests Lumbar Spine Special Tests Slump Test Results positive for pain, numbness, tingling RLE 2nd most provocative position PT-OP-M Strength Start: 10/06/21 08:39 Freq: Status: Active Protocol: Document 10/07/21 11:15 AW (Rec: 10/07/21 16:23 AW [id number]) Hip Strength Hip Manual Muscle Testing Right Flexion (L2) 4- Good- Extension (S1) 3 Fair Abduction 3 Fair Left Flexion (L2) 4 Good Extension (S1) 3+ Fair+ Abduction 3+ Fair+ Knee Strength Knee Manual Muscle Testing bilat Flexion (S2) 4 Good Extension (L3) 4 Good Ankle/Foot Strength Ankle and Foot Manual Muscle Testing bilat Dorsiflexion (L4) 4 Good Comments Pt unable to complete two single leg heel lifts with good elevation. Toe Strength Toe Manual Muscle Testing Great Toe Extension 4+ Good+ PT-OP-Q Treatments Start: 10/06/21 08:39 Freq: Status: Active Protocol: Document 12/04/21 10:27 MA (Rec: 12/04/21 11:17 MA [id number]) Cardio Equipment Recumbent Elliptical (BiodEverywun) Duration (Minutes) 6 Resistance 5 Seat Position 8 Other pt requested decreasing resistance to 3 after 3 minutes Therapeutic Exercises Supine Exercises piriformis stretch Side bilateral Reps/Minutes 30 ea Comments in seated today Standing Exercises lateral band walk Standing Exercise Name lateral band walk Resistance yellow loop Reps/Minutes 10' lap x 4 Comments R side LBP while stepping today Other Exercises Child's Pose Other Exercise Name modified in standing- reaching laterally Side bilateral Reps/Minutes 2x30 ea Comments added to HEP sit to stand Other Exercise Name sit to stand Equipment Used green chair, band around knees to correct varus Reps/Minutes 2x10 Comments HEP Manual Therapy Treatment Soft Tissue Mobilization right hip Body Location glutes, QL Mobilization Type Strumming,Sustained Pressure, Trigger Point Release Intensity/Depth Moderate Body Position Sidelying Comments pt able to tolerate SL this session Self-Care/Home Management Treatment Education Patient Education Home Exercise Program Other Education Added modified standing child' s pose, reaching laterally to HEP. Educated pt on using rolling pin to lateral RLE just like she uses ball to low back and glutes to release mm . PT-OP-R Modalities Start: 10/06/21 08:39 Freq: Status: Active Protocol: Document 12/04/21 10:27 MA (Rec: 12/04/21 11:17 MA [id number]) Hot Pack/Cold Pack Treatment Hot Pack Location lumbar Patient Position Hooklying Treatment Duration (minutes) 15 Patient Tolerance Good Comments end of tx PT-OP-S Aquatic Treatment Start: 10/06/21 08:39 Freq: Status: Active Protocol: Document 04/28/22 15:22 LJ (Rec: 04/28/22 15:37 LJ [id number]) Aquatics Treatment Pool Entry/Exit Pool Entry/Exit Method Stairs Assistance Independent Water Walking Lunge Walk Water Level Waist Level Walking Equipment blue ankle fins Level of Assistance Verbal Cues Comments tactile cueing for upright posture Sideways Water Level Chest Level Walking Equipment blue ankle fins Comments windshield wiper arms for core challenge [place] March Water Level Chest Level Walking Equipment blue ankle fins Level of Assistance Verbal Cues Marching Water Level Chest Level Walking Equipment ankle fins Comments arms at sides for drag Backwards Water Level Chest Level Walking Equipment blue ankle fins Forwards Water Level Chest Level Walking Equipment blue ankle Fins Lower Extremity Exercises 4 way hip Details at wall Body Position Standing Water Level Chest Level Equipment Resistance Fins Reps/Duration 10 each B Comments cues for posture and core engagement Lower Extremity Stretches ITB Body Position Standing Reps/Duration 1 min B piriformis Equipment Ankle Floats Reps/Duration 2x30 free the hip Details at wall Body Position Standing Reps/Duration 10 B gastroc/soleus Details at wall Body Position Standing Reps/Duration 2 x 30 B HS Body Position Standing Equipment Large Noodle Reps/Duration 2 x 30 B Upper Extremity Exercises stretch cords Details rows, abd rotation, UE pulldown, Comments cues for controlled mvnt and ecc control corner stretch Body Position Standing Reps/Duration 45 sec x2 Spinal Exercises LB stretch on wall Reps/Duration 2x 1 ' BB pull down Details peng Water Level Lloyd Equipment M BB Reps/Duration 10 abd Comments cues for posture trunk rotation Body Position Supine Water Level Lloyd Reps/Duration 10 Lloyd Activities Lloyd Activities Bicycle,Cross Country,Hip Abduction/Adduction Other Activities pendulum plank w/knee to ipsilat elbow DLS w/lower body mvmt rock 'n roll- attempted but unable Equipment bbs, belt Duration 10 Comments pt with difficulty stabilizing doing planks, pendulum PT-OP-T Assessment and Plan Start: 10/06/21 08:39 Freq: Status: Active Protocol: Document 04/28/22 15:22 [id number] (Rec: 04/28/22 15:37 [id number]) Physical Therapy Assessment Rehab Potential Rehabilitation Potential Fair Evaluation Complexity Number of Personal Factors/Comorbidities 3 or More Number of Body Systems Impaired 3 Clinical Presentation at Evaluation Evolving Impairments Impairments Activity Tolerance,Balance, Gait,Pain,Posture,ROM, Sensation,Soft Tissue Mobility ,Strength Goals Two Impairment standing and walking tolerance Short Term Goal (STG) Pt will stand 20 minutes without increase in baseline pain to improve her ability to cook a simple meal for herself. 11/19/21 GOAL MET STG Duration goal met Penitentiary Goal (LTG) Pt will walk for 30 minutes without increase in baseline pain to improve her ability to participate in a self- directed walking program. 01/04/22: good goal progress, can walk for 20 min without increase in baseline pain LTG Duration 06/01/22 One Impairment lacks HEP Short Term Goal (STG) Pt will be instructed in HEP for pain management, ROM, and core stabilization to support therapy services provided in clinic. 11/19/21 - GOAL MET STG Duration goal met Penit[facility]iary Goal (LTG) Pt will be independent with HEP for pain management, strength, and balance to sustain gains made in therapy. 01/04/22: independent with land- based HEP. Continues to progress with aquatic exercise program 03/30/22: not seen in aquatic PT for greater than 1 month, unable to progress exercises today in more pain. Benefits from deep water traction LTG Duration 06/01/22 Progress Towards Goals Progress Towards Goals Progressing Toward Goals Assessment Summary Assessment Pt tolerated all exercises with fins. No c/o pain. Fins were not worn in deep water exercises. Her balance and coordination with walking appear to have improved in the water but unknown what the carryover is onto land. She feels it has improved but improving consistency with AT would be more beneficial. She does not know if she will continue on her own with aquatic HEP after DC but will try Physical Therapy Plan Frequency and Duration Frequency of Treatment 1x/Week Duration of Treatment 8 weeks Plan of Care Start Date 03/31/22 Plan of Care End Date 06/01/22 Therapeutic Interventions Therapeutic Interventions Aquatic Therapy,Balance Training,Gait Training,Home Exercise Program,Joint Mobilizations,Lymphedema Management,Manual Therapy, Neuromuscular Re-education, Self-Care/Home Management,Soft Tissue Mobilization,Taping, Therapeutic Activities, Therapeutic Exercises Modalities Cold Pack/Ice Massage,Electric Stimulation,Hot Packs Next Visit Focus/Plan Next Note Type Treatment Note Next Visit Plan Continue aquatic PT per patient preference to address PT goals, review HEP, progress as indicated. and stress increased compliance for improved benefit. Add cardio and balance on stacked boxes in shallow.
--- NOTE | 2022-06-10 16:50 | PT.OTN ---
Current Diagnoses Malignant neoplasm of unspecified site of unspecified female breast (06/10/22) Lumbago with sciatica, unspecified side (06/10/22) Difficulty in walking, not elsewhere classified (06/10/22) Abnormal posture (06/10/22) Estrogen receptor positive status [ER+] (06/10/22) Physical Therapy Treatment Note PT-OP-A Visit Information Start: 10/06/21 08:39 Freq: Status: Active Protocol: Document 06/10/22 15:18 [facility] (Rec: 06/10/22 16:47 [facility] [id number]) Out-Patient Physical Therapy Visit Information Visit Information Visit Type Treatment Note Visit Start Time 15:19 Visit Stop Time 16:20 Total Visit Minutes 61 Visit Number 18 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 Her mother had very limited mobility in the last three years and Matilda was assisting with lots of heavy transfers. She believes her back pain started around that time. She wore a back brace for support at times but isn't sure it helped much. She now has pain that starts in her low back and radiates into buttock and lateral thigh and lateral calf . It is worse on the right but present bilaterally. She has numbness in similar distribution. Pt takes [place] ~ every other day when pain gets very bad. Smoking marijuana helps distract from her pain. 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 She has completed adjuvant radiation therapy as of August. She will start anastrozole soon and is concerned about reductions in estrogen and estradiol. Since cancer treatment, she has grown aware of tight and painful shoulders bilaterally (left worse than right) and reports painful lumps on the left side under breast tissue. Scar tissue seems tight and restricts movement. Recent nuc med bone scan was negative for metastasis. Matilda lives alone since the of her mother. She depends on her logan. She is considering a cancer support group and has good friends. Prior Treatments and Tests - Chiropractic - Nuc med bone scan September 2021 with no evidence of metastasis. - Lumbar MRI 2018: Lower lumbar spine degenerative changes are seen, which are most prominent at the L5-S1 level. - Cervical MRI 2018: Multilevel disc bulges. Spinal stenosis is present most notable at C5-6 secondary to disc bulge. Multiple foraminal narrowing most notable at C5- 6 secondary to uncovertebral arthropathy. Current Functional Impairments (Reported) Functional Limitations- ADL's painful Functional Limitations- Mobility/Gait painful, limping due to left knee pain Personal Factors Other Personal Factors That May Effect poor social support Therapy/Recovery PT-OP-C Subjective Start: 10/06/21 08:39 Freq: Status: Active Protocol: Document 06/10/22 15:18 [facility] (Rec: 06/10/22 16:47 [facility] [id number]) OP-PT Subjective Patient Comments Patient Comments Really hurting a lot, has been busy due to hacked account. Has only been to pool 1 or 2 times on her own. Reports poor sleep. Occasionally wears knee brace. Right low back and LE most painful today. Still taking Hydrocodone with Tylenol. Hasn't used CBD cream lately; states the computer hacking has taken a few weeks to get resolved and she didn't do much else. Poor compliance to HEP. Patient Reported Progress Worse PT-OP-D Balance Start: 10/06/21 08:39 Freq: Status: Active Protocol: Document 10/07/21 11:15 AW (Rec: 10/07/21 13:41 AW [id number]) Balance Tests Single Limb Standing Single Limb- Right 3 sec with fingertip support on wall Single Limb- Left 5 sec with fingertip support on wall PT-OP-F Manual Assessment Start: 10/06/21 08:39 Freq: Status: Active Protocol: Document 10/07/21 11:15 AW (Rec: 10/07/21 13:44 AW [id number]) Manual Assessments Soft Tissue Assessment Soft Tissue Mobility Assessment Severely limited internal rotation in bilateral hips. TTP at bilateral greater trochanters, deep external rotators, and gluteal region PT-OP-G Mobility & Gait Start: 10/06/21 08:39 Freq: Status: Active Protocol: Document 10/07/21 11:15 AW (Rec: 10/07/21 16:23 AW [id number]) OP Mobility Evaluation Bed Mobility Rolling Difficult and painful rolling Supine to and from Sit Increased time and cues needed for log roll Transfers Sit to Stand Definite need for use of hands OP Gait Assessment Comments Gait Comments Pt ambulates independently with lateral lean in ipsilateral stance, wide base of support, decreased RLE stance time, reduced heel strike and weak toe off. Generally unsteady. PT-OP-H Neuro Start: 10/06/21 08:39 Freq: Status: Active Protocol: Document 10/07/21 11:15 AW (Rec: 10/07/21 16:23 AW [id number]) Sensation Evaluation Gross Sensation Gross Sensation Left LE Impaired,Right LE Impaired Comments Summary Comments Pain and numbness in buttocks and posterolateral thigh, lateral calf. Right more significantly affected than left. Deep Tendon Reflex & Clonus Assessment Deep Tendon Reflex Bicep Deep Tendon Reflex 2+ Normal Achilles Deep Tendon Reflex 1+ Diminished Patellar Deep Tendon Reflex 2+ Normal PT-OP-J Posture/Palpation/Skin Start: 10/06/21 08:39 Freq: Status: Active Protocol: Document 10/07/21 11:15 AW (Rec: 10/07/21 16:23 AW [id number]) Posture Evaluation Comments Posture Comments Flat lumbar spine with hinge at L4-5. Extension severely limited. Decreased weightbearing RLE in static stance and in gait Skin Assessment Incisional Assessment Incision Appearance/Comments Left lumpectomy scar with significantly limited mobility . PT-OP-K Range of Motion Start: 10/06/21 08:39 Freq: Status: Active Protocol: Document 10/07/21 11:15 AW (Rec: 10/08/21 15:10 AW [id number]) Cervical Spine Range of Motion Cervical Spine Active Testing Position Sitting Flexion 45 Extension 25 Rotation Left 40 Rotation Right 40 Lateral Flexion Left 20 Lateral Flexion Right 15 ROM Limitations Soft Tissue Tightness,Pain Comments Lateral flexion limited by increased tone in upper traps bilaterally Lumbar Spine Range of Motion Lumbar Spine Active Testing Position Standing Comments Pt is able to bend forward with fingertips to within 8 from floor. Positive Danica sign. Lateral flexion severely limited and pt can only slide fingertips ~3 inches toward lateral knee. Shoulder Goniometric Range of Motion Shoulder Right Active Testing Position Sitting Flexion 140 Abduction 135 External Rotation at 0 degrees Abduction 50 Internal Rotation Behind Back (text) T10 Left Active Testing Position Sitting Flexion 140 Abduction 137 External Rotation at 0 degrees Abduction 55 Internal Rotation Behind Back (text) T12 Hip Goniometric Range of Motion Hip bilat Testing Position Supine Comments Internal rotation severely limited and end-range PROM does reproduce pain PT-OP-L Special Tests Start: 10/06/21 08:39 Freq: Status: Active Protocol: Document 10/07/21 11:15 AW (Rec: 10/07/21 16:23 AW [id number]) Special Tests Lumbar Spine Special Tests Slump Test Results positive for pain, numbness, tingling RLE 2nd most provocative position PT-OP-M Strength Start: 10/06/21 08:39 Freq: Status: Active Protocol: Document 06/10/22 15:18 [facility] (Rec: 06/10/22 16:47 [facility] [id number]) Trunk Strength Trunk Manual Muscle Testing Flexion 3+ Fair+ Extension 3+ Fair+ Comments painful Hip Strength Hip Manual Muscle Testing Right Flexion (L2) 3- Fair- Extension (S1) 3 Fair Abduction 3 Fair Left Flexion (L2) 3- Fair- Extension (S1) 3+ Fair+ Abduction 3+ Fair+ Knee Strength Knee Manual Muscle Testing bilat Flexion (S2) 4 Good Extension (L3) 4 Good Comments pain with ext left Ankle/Foot Strength Ankle and Foot Manual Muscle Testing bilat Dorsiflexion (L4) 4 Good Plantarflexion (S1) 3- Fair- PT-OP-Q Treatments Start: 10/06/21 08:39 Freq: Status: Active Protocol: Document 06/10/22 15:18 [facility] (Rec: 06/10/22 16:47 [facility] [id number]) Therapeutic Exercises Supine Exercises piriformis stretch Side bilateral Reps/Minutes 30 ea LTR Supine Exercise Name lower trunk rotation Side bilateral Reps/Minutes [id number] Bridges Side bilateral Reps/Minutes x10 Comments cued heel drive Sitting Exercises spinal decompression Side bilateral Equipment Used chair Reps/Minutes 2x10 Manual Therapy Treatment Soft Tissue Mobilization IT band right Mobilization Type Instrument Assisted Intensity/Depth Moderate Body Position Sidelying right hip Body Location glutes, QL Mobilization Type Instrument Assisted,Sustained Pressure,Trigger Point Release Intensity/Depth Moderate Body Position Sidelying Manual Traction Lumbar Details strap Body Position Hooklying Reps/Duration 5 min Comments dec in pain Instructed in seated spinal decompression and added to HEP Other Other Manual Treatments MMT bilateral LEs Self-Care/Home Management Treatment Education Patient Education Home Exercise Program,Pain Management Other Education self-massage: tennis ball, rolling pin gentle yoga video YouTube Home exercise program Wear tights to decrease swelling and provide compression to varicose veins gentle low back decompression sitting in chair and pushing down with hands PT-OP-R Modalities Start: 10/06/21 08:39 Freq: Status: Active Protocol: Document 06/10/22 15:18 [facility] (Rec: 06/10/22 16:47 [facility] [id number]) Hot Pack/Cold Pack Treatment Cold Pack Location left knee Patient Position Hooklying Treatment Duration (minutes) 15 Patient Tolerance Good Hot Pack Location lumbar Patient Position Hooklying Treatment Duration (minutes) 15 Patient Tolerance Good Comments end of tx PT-OP-S Aquatic Treatment Start: 10/06/21 08:39 Freq: Status: Active Protocol: Document 04/28/22 15:22 LJ (Rec: 04/28/22 15:37 LJ [id number]) Aquatics Treatment Pool Entry/Exit Pool Entry/Exit Method Stairs Assistance Independent Water Walking Lunge Walk Water Level Waist Level Walking Equipment blue ankle fins Level of Assistance Verbal Cues Comments tactile cueing for upright posture Sideways Water Level Chest Level Walking Equipment blue ankle fins Comments windshield wiper arms for core challenge [place] March Water Level Chest Level Walking Equipment blue ankle fins Level of Assistance Verbal Cues Marching Water Level Chest Level Walking Equipment ankle fins Comments arms at sides for drag Backwards Water Level Chest Level Walking Equipment blue ankle fins Forwards Water Level Chest Level Walking Equipment blue ankle Fins Lower Extremity Exercises 4 way hip Details at wall Body Position Standing Water Level Chest Level Equipment Resistance Fins Reps/Duration 10 each B Comments cues for posture and core engagement Lower Extremity Stretches ITB Body Position Standing Reps/Duration 1 min B piriformis Equipment Ankle Floats Reps/Duration 2x30 free the hip Details at wall Body Position Standing Reps/Duration 10 B gastroc/soleus Details at wall Body Position Standing Reps/Duration 2 x 30 B HS Body Position Standing Equipment Large Noodle Reps/Duration 2 x 30 B Upper Extremity Exercises stretch cords Details rows, abd rotation, UE pulldown, Comments cues for controlled mvnt and ecc control corner stretch Body Position Standing Reps/Duration 45 sec x2 Spinal Exercises LB stretch on wall Reps/Duration 2x 1 ' BB pull down Details peng Water Level [place] Equipment M BB Reps/Duration 10 abd Comments cues for posture trunk rotation Body Position Supine Water Level [place] Reps/Duration 10 [place] Activities [place] Activities Bicycle,Cross Country,Hip Abduction/Adduction Other Activities pendulum plank w/knee to ipsilat elbow DLS w/lower body mvmt rock 'n roll- attempted but unable Equipment bbs, belt Duration 10 Comments pt with difficulty stabilizing doing planks, pendulum PT-OP-T Assessment and Plan Start: 10/06/21 08:39 Freq: Status: Active Protocol: Document 06/10/22 15:18 [facility] (Rec: 06/10/22 16:47 [facility] [id number]) Physical Therapy Assessment Rehab Potential Rehabilitation Potential Fair Evaluation Complexity Number of Personal Factors/Comorbidities 3 or More Number of Body Systems Impaired 3 Clinical Presentation at Evaluation Evolving Impairments Impairments Activity Tolerance,Balance, Gait,Pain,Posture,ROM, Sensation,Soft Tissue Mobility ,Strength Other Concerns Barriers to Rehabilitation lack of compliance chronicity of condition Goals Five Impairment activity tolerance Impairment LEFS 40% Oswestry disability index score 44% Care Home Goal (LTG) Improve LEFS to at least 65%, decrease Oswestry to no greater than 25% as measure of improved functional activity tolerance LTG Duration 08/02/22 Four Impairment pain right low back, peng LE's Impairment 8/10 Short Term Goal (STG) decrease pain to no greater than 5/10 with all usual activities Care Home Goal (LTG) decrease pain to no greater than 3/10 with all usual activities LTG Duration 08/02/22 Three Impairment strength Short Term Goal (STG) Pt will improve bilateral hip strength to 4/5 all planes for improved stability in gait STG Duration goal met Care Home Goal (LTG) Pt will complete 10 reps on 30 -second sit to stand test without use of upper extremities as a measure of improved BLE strength 01/04/22: good goal progress; completed 7 reps 06/10/22: unable to complete due to left knee pain today LTG Duration 08/02/22 Two Impairment standing and walking tolerance Short Term Goal (STG) Pt will stand 20 minutes without increase in baseline pain to improve her ability to cook a simple meal for herself. 11/19/21 GOAL MET STG Duration goal met Care Home Goal (LTG) Pt will walk for 30 minutes without increase in baseline pain to improve her ability to participate in a self- directed walking program. 01/04/22: good goal progress, can walk for 20 min without increase in baseline pain LTG Duration 08/02/22 One Impairment lacks HEP Short Term Goal (STG) Pt will be instructed in HEP for pain management, ROM, and core stabilization to support therapy services provided in clinic. 11/19/21 - GOAL MET STG Duration goal met Maintenance Supervisor Mechanical Goal (LTG) Pt will be independent and compliant with HEP and aquatic exercise program for pain management, strength, and balance to sustain gains made in therapy and promote pain management and fitness long- term. 01/04/22: independent with land- based HEP. Continues to progress with aquatic exercise program 03/30/22: not seen in aquatic PT for greater than 1 month, unable to progress exercises today in more pain. Benefits from deep water traction 06/30/22: due to life stressors patient has not been able to comply with HEP; reviewed importance, updated HEP with addition of self spinal decompression and encouraged use of video for gentle yoga. Needs further progression and modification prior to discharge LTG Duration 08/02/22 Assessment Summary Assessment Patient returns to PT today after not being seen since . She reports increased pain with poor compliance to HEP due to life stressors. MMT reveals she is weaker in core and hips and has tenderness throughout right piriformis and bilateral IT bands. She continues to use Hydrocodone for pain management but it appears to be inadequate for pain control. Extensive discussion about importance of HEP which was reviewed, updated and re- issued to patient today as well as instruction in self- massage and self spinal decompression. Importance of consistent HEP and aquatic exercise stressed for long- term pain management and fitness. Recommend further PT to to help patient achieve above goals assure safety and independence and facilitate compliance to self-management. Physical Therapy Plan Frequency and Duration Frequency of Treatment 1x/Week Duration of treatment (weeks) 8 Plan of Care Start Date 06/10/22 Plan of Care End Date 08/02/22 Therapeutic Interventions Therapeutic Interventions Aquatic Therapy,Balance Training,Gait Training,Home Exercise Program,Joint Mobilizations,Lymphedema Management,Manual Therapy, Neuromuscular Re-education, Self-Care/Home Management,Soft Tissue Mobilization,Taping, Therapeutic Activities, Therapeutic Exercises Modalities Cold Pack/Ice Massage,Electric Stimulation,Hot Packs Next Visit Focus/Plan Next Note Type Treatment Note Next Visit Plan Continue aquatic PT and 1 further land-based PT session to address PT goals, review HEP, progress as indicated. stress increased compliance for improved benefit. Progress to cardio and HIIT in aquatic PT as tolerated
--- NOTE | 2022-06-14 07:58 | PT-OP ANOTE ---
Patient cancelled PT due to schedule conflict
--- NOTE | 2022-06-21 14:30 | PT.OTN ---
Current Diagnoses Malignant neoplasm of unspecified site of unspecified female breast (06/10/22) Lumbago with sciatica, unspecified side (06/10/22) Difficulty in walking, not elsewhere classified (06/10/22) Abnormal posture (06/10/22) Estrogen receptor positive status [ER+] (06/10/22) Physical Therapy Treatment Note PT-OP-A Visit Information Start: 10/06/21 08:39 Freq: Status: Active Protocol: Document 06/21/22 14:23 [facility] (Rec: 06/21/22 14:30 [facility] [id number]) Out-Patient Physical Therapy Visit Information Visit Information Visit Type Treatment Note Visit Start Time 12:30 Visit Stop Time 13:30 Total Visit Minutes 60 Visit Number 19 Precautions Precautions osteopenia PT-OP-B Current Condition Start: 10/06/21 08:39 Freq: Status: Active Protocol: Document 06/21/22 14:23 [facility] (Rec: 06/21/22 14:30 [facility] [id number]) Current Condition History of Current Condition Onset Date chronic - at least 3 years for back and at least 3 months for shoulders Current Complaints back and leg pain; painful and tight shoulders History of Current Condition 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 Her mother had very limited mobility in the last three years and Matilda was assisting with lots of heavy transfers. She believes her back pain started around that time. She wore a back brace for support at times but isn't sure it helped much. She now has pain that starts in her low back and radiates into buttock and lateral thigh and lateral calf . It is worse on the right but present bilaterally. She has numbness in similar distribution. Pt takes [place] ~ every other day when pain gets very bad. Smoking marijuana helps distract from her pain. 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 She has completed adjuvant radiation therapy as of August. She will start anastrozole soon and is concerned about reductions in estrogen and estradiol. Since cancer treatment, she has grown aware of tight and painful shoulders bilaterally (left worse than right) and reports painful lumps on the left side under breast tissue. Scar tissue seems tight and restricts movement. Recent nuc med bone scan was negative for metastasis. Matilda lives alone since the of her mother. She depends on her logan. She is considering a cancer support group and has good friends. Prior Treatments and Tests - Chiropractic - Nuc med bone scan September 2021 with no evidence of metastasis. - Lumbar MRI 2018: Lower lumbar spine degenerative changes are seen, which are most prominent at the L5-S1 level. - Cervical MRI 2018: Multilevel disc bulges. Spinal stenosis is present most notable at C5-6 secondary to disc bulge. Multiple foraminal narrowing most notable at C5- 6 secondary to uncovertebral arthropathy. PT-OP-C Subjective Start: 10/06/21 08:39 Freq: Status: Active Protocol: Document 06/21/22 14:23 [facility] (Rec: 06/21/22 14:30 [facility] [id number]) OP-PT Subjective Patient Comments Patient Comments Patient reports very sore after doing things around house and yard to get ready for the winter. PT-OP-D Balance Start: 10/06/21 08:39 Freq: Status: Active Protocol: Document 10/07/21 11:15 [facility] (Rec: 10/07/21 13:41 AW [id number]) Balance Tests Single Limb Standing Single Limb- Right 3 sec with fingertip support on wall Single Limb- Left 5 sec with fingertip support on wall PT-OP-F Manual Assessment Start: 10/06/21 08:39 Freq: Status: Active Protocol: Document 10/07/21 11:15 [facility] (Rec: 10/07/21 13:44 AW [id number]) Manual Assessments Soft Tissue Assessment Soft Tissue Mobility Assessment Severely limited internal rotation in bilateral hips. TTP at bilateral greater trochanters, deep external rotators, and gluteal region PT-OP-G Mobility & Gait Start: 10/06/21 08:39 Freq: Status: Active Protocol: Document 10/07/21 11:15 [facility] (Rec: 10/07/21 16:23 AW [id number]) OP Mobility Evaluation Bed Mobility Rolling Difficult and painful rolling Supine to and from Sit Increased time and cues needed for log roll Transfers Sit to Stand Definite need for use of hands OP Gait Assessment Comments Gait Comments Pt ambulates independently with lateral lean in ipsilateral stance, wide base of support, decreased RLE stance time, reduced heel strike and weak toe off. Generally unsteady. PT-OP-H Neuro Start: 10/06/21 08:39 Freq: Status: Active Protocol: Document 10/07/21 11:15 AW (Rec: 10/07/21 16:23 AW [id number]) Sensation Evaluation Gross Sensation Gross Sensation Left LE Impaired,Right LE Impaired Comments Summary Comments Pain and numbness in buttocks and posterolateral thigh, lateral calf. Right more significantly affected than left. Deep Tendon Reflex & Clonus Assessment Deep Tendon Reflex Bicep Deep Tendon Reflex 2+ Normal Achilles Deep Tendon Reflex 1+ Diminished Patellar Deep Tendon Reflex 2+ Normal PT-OP-J Posture/Palpation/Skin Start: 10/06/21 08:39 Freq: Status: Active Protocol: Document 10/07/21 11:15 [facility] (Rec: 10/07/21 16:23 AW [id number]) Posture Evaluation Comments Posture Comments Flat lumbar spine with hinge at L4-5. Extension severely limited. Decreased weightbearing RLE in static stance and in gait Skin Assessment Incisional Assessment Incision Appearance/Comments Left lumpectomy scar with significantly limited mobility . PT-OP-K Range of Motion Start: 10/06/21 08:39 Freq: Status: Active Protocol: Document 10/07/21 11:15 AW (Rec: 10/08/21 15:10 AW [id number]) Cervical Spine Range of Motion Cervical Spine Active Testing Position Sitting Flexion 45 Extension 25 Rotation Left 40 Rotation Right 40 Lateral Flexion Left 20 Lateral Flexion Right 15 ROM Limitations Soft Tissue Tightness,Pain Comments Lateral flexion limited by increased tone in upper traps bilaterally Lumbar Spine Range of Motion Lumbar Spine Active Testing Position Standing Comments Pt is able to bend forward with fingertips to within 8 from floor. Positive Danica sign. Lateral flexion severely limited and pt can only slide fingertips ~3 inches toward lateral knee. Shoulder Goniometric Range of Motion Shoulder Right Active Testing Position Sitting Flexion 140 Abduction 135 External Rotation at 0 degrees Abduction 50 Internal Rotation Behind Back (text) T10 Left Active Testing Position Sitting Flexion 140 Abduction 137 External Rotation at 0 degrees Abduction 55 Internal Rotation Behind Back (text) T12 Hip Goniometric Range of Motion Hip bilat Testing Position Supine Comments Internal rotation severely limited and end-range PROM does reproduce pain PT-OP-L Special Tests Start: 10/06/21 08:39 Freq: Status: Active Protocol: Document 10/07/21 11:15 AW (Rec: 10/07/21 16:23 AW [id number]) Special Tests Lumbar Spine Special Tests Slump Test Results positive for pain, numbness, tingling RLE 2nd most provocative position PT-OP-M Strength Start: 10/06/21 08:39 Freq: Status: Active Protocol: Document 06/10/22 15:18 [facility] (Rec: 06/10/22 16:47 [facility] [id number]) Trunk Strength Trunk Manual Muscle Testing Flexion 3+ Fair+ Extension 3+ Fair+ Comments painful Hip Strength Hip Manual Muscle Testing Right Flexion (L2) 3- Fair- Extension (S1) 3 Fair Abduction 3 Fair Left Flexion (L2) 3- Fair- Extension (S1) 3+ Fair+ Abduction 3+ Fair+ Knee Strength Knee Manual Muscle Testing bilat Flexion (S2) 4 Good Extension (L3) 4 Good Comments pain with ext left Ankle/Foot Strength Ankle and Foot Manual Muscle Testing bilat Dorsiflexion (L4) 4 Good Plantarflexion (S1) 3- Fair- PT-OP-Q Treatments Start: 10/06/21 08:39 Freq: Status: Active Protocol: Document 06/10/22 15:18 [facility] (Rec: 06/10/22 16:47 [facility] [id number]) Therapeutic Exercises Supine Exercises piriformis stretch Side bilateral Reps/Minutes 30 ea LTR Supine Exercise Name lower trunk rotation Side bilateral Reps/Minutes [id number] Bridges Side bilateral Reps/Minutes x10 Comments cued heel drive Sitting Exercises spinal decompression Side bilateral Equipment Used chair Reps/Minutes 2x10 Manual Therapy Treatment Soft Tissue Mobilization IT band right Mobilization Type Instrument Assisted Intensity/Depth Moderate Body Position Sidelying right hip Body Location glutes, QL Mobilization Type Instrument Assisted,Sustained Pressure,Trigger Point Release Intensity/Depth Moderate Body Position Sidelying Manual Traction Lumbar Details strap Body Position Hooklying Reps/Duration 5 min Comments dec in pain Instructed in seated spinal decompression and added to HEP Other Other Manual Treatments MMT bilateral LEs Self-Care/Home Management Treatment Education Patient Education Home Exercise Program,Pain Management Other Education self-massage: tennis ball, rolling pin gentle yoga video YouTube Home exercise program Wear tights to decrease swelling and provide compression to varicose veins gentle low back decompression sitting in chair and pushing down with hands PT-OP-R Modalities Start: 10/06/21 08:39 Freq: Status: Active Protocol: Document 06/10/22 15:18 [facility] (Rec: 06/10/22 16:47 [facility] [id number]) Hot Pack/Cold Pack Treatment Cold Pack Location left knee Patient Position Hooklying Treatment Duration (minutes) 15 Patient Tolerance Good Hot Pack Location lumbar Patient Position Hooklying Treatment Duration (minutes) 15 Patient Tolerance Good Comments end of tx PT-OP-S Aquatic Treatment Start: 10/06/21 08:39 Freq: Status: Active Protocol: Document 06/21/22 14:23 [facility] (Rec: 06/21/22 14:30 [facility] [id number]) Aquatics Treatment Water Walking Sideways Water Level Chest Level Walking Equipment blue ankle fins Comments windshield wiper arms for core challenge [place] March Water Level Chest Level Level of Assistance Verbal Cues Marching Water Level Chest Level Comments arms at sides for drag Backwards Water Level Chest Level Forwards Water Level Chest Level Lower Extremity Stretches ITB Body Position Standing Reps/Duration 1 min B piriformis Equipment Ankle Floats Reps/Duration 2x30 HS Body Position Standing Equipment Large Noodle Reps/Duration 2 x 30 B hip flexors Body Position Standing Equipment Small Noodle Reps/Duration 2 x 30 B Brandon Activities Brandon Activities Bicycle,Bicycle Backwards, Cross Country,Hip Abduction/ Adduction Other Activities pendulum DLS w/lower body mvmt traction 7 09/06# peng Equipment bbs, belt Duration 10 Chi Chi Duration (Minutes) 6 Comments moderate verbal cues for alignment, relaxation PT-OP-T Assessment and Plan Start: 10/06/21 08:39 Freq: Status: Active Protocol: Document 06/21/22 14:23 [facility] (Rec: 06/21/22 14:30 [facility] [id number]) Physical Therapy Assessment Impairments Impairments Activity Tolerance,Balance, Gait,Pain,Posture,ROM, Sensation,Soft Tissue Mobility ,Strength Other Concerns Barriers to Rehabilitation lack of compliance chronicity of condition Goals Five Impairment activity tolerance Impairment LEFS 40% Oswestry disability index score 44% Machine Clerical Verifier Goal (LTG) Improve LEFS to at least 65%, decrease Oswestry to no greater than 25% as measure of improved functional activity tolerance LTG Duration 08/02/22 Four Impairment pain right low back, peng LE's Impairment 8/10 Short Term Goal (STG) decrease pain to no greater than 5/10 with all usual activities Machine Clerical Verifier Goal (LTG) decrease pain to no greater than 3/10 with all usual activities LTG Duration 08/02/22 Three Impairment strength Short Term Goal (STG) Pt will improve bilateral hip strength to 4/5 all planes for improved stability in gait STG Duration goal met Machine Clerical Verifier Goal (LTG) Pt will complete 10 reps on 30 -second sit to stand test without use of upper extremities as a measure of improved BLE strength 01/04/22: good goal progress; completed 7 reps 06/10/22: unable to complete due to left knee pain today LTG Duration 08/02/22 Two Impairment standing and walking tolerance Short Term Goal (STG) Pt will stand 20 minutes without increase in baseline pain to improve her ability to cook a simple meal for herself. 11/19/21 GOAL MET STG Duration goal met Machine Clerical Verifier Goal (LTG) Pt will walk for 30 minutes without increase in baseline pain to improve her ability to participate in a self- directed walking program. 01/04/22: good goal progress, can walk for 20 min without increase in baseline pain LTG Duration 08/02/22 One Impairment lacks HEP Short Term Goal (STG) Pt will be instructed in HEP for pain management, ROM, and core stabilization to support therapy services provided in clinic. 11/19/21 - GOAL MET STG Duration goal met Machine Clerical Verifier Goal (LTG) Pt will be independent and compliant with HEP and aquatic exercise program for pain management, strength, and balance to sustain gains made in therapy and promote pain management and fitness long- term. 01/04/22: independent with land- based HEP. Continues to progress with aquatic exercise program 03/30/22: not seen in aquatic PT for greater than 1 month, unable to progress exercises today in more pain. Benefits from deep water traction 06/30/22: due to life stressors patient has not been able to comply with HEP; reviewed importance, updated HEP with addition of self spinal decompression and encouraged use of video for gentle yoga. Needs further progression and modification prior to discharge LTG Duration 08/02/22 Assessment Summary Assessment Eased back into aquatic PT due to high pain level, length of time since last in pool. Trial Chi. Ended session with deep water traction. Anticipate may be ready for initiating HIIT next session. Encouraged independent aquatic exercise as we work toward transition to independent community aquatic exercise. Physical Therapy Plan Frequency and Duration Frequency of Treatment 1x/Week Duration of treatment (weeks) 8 Plan of Care Start Date 06/10/22 Plan of Care End Date 08/02/22 Therapeutic Interventions Therapeutic Interventions Aquatic Therapy,Balance Training,Gait Training,Home Exercise Program,Joint Mobilizations,Lymphedema Management,Manual Therapy, Neuromuscular Re-education, Self-Care/Home Management,Soft Tissue Mobilization,Taping, Therapeutic Activities, Therapeutic Exercises Modalities Cold Pack/Ice Massage,Electric Stimulation,Hot Packs Next Visit Focus/Plan Next Note Type Treatment Note Next Visit Plan Continue aquatic PT and 1 further land-based PT session to address PT goals, review HEP, progress as indicated. stress increased compliance for improved benefit. Progress to cardio and HIIT in aquatic PT as tolerated
--- NOTE | 2022-07-05 14:42 | PT.OTN ---
Current Diagnoses Malignant neoplasm of unspecified site of unspecified female breast (07/05/22) Lumbago with sciatica, unspecified side (07/05/22) Difficulty in walking, not elsewhere classified (07/05/22) Abnormal posture (07/05/22) Estrogen receptor positive status [ER+] (07/05/22) Physical Therapy Treatment Note PT-OP-A Visit Information Start: 10/06/21 08:39 Freq: Status: Active Protocol: Document 07/05/22 14:21 LJ (Rec: 07/05/22 14:42 LJ [id number]) Out-Patient Physical Therapy Visit Information Visit Information Visit Type Aquatic Treatment Note Visit Start Time 11:45 Visit Stop Time 12:30 Total Visit Minutes 45 Visit Number 20 Precautions Precautions osteopenia PT-OP-B Current Condition Start: 10/06/21 08:39 Freq: Status: Active Protocol: Document 06/21/22 14:23 SAK (Rec: 06/21/22 14:30 SAK [id number]) Current Condition History of Current Condition Onset Date chronic - at least 3 years for back and at least 3 months for shoulders Current Complaints back and leg pain; painful and tight shoulders History of Current Condition 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 Her mother had very limited mobility in the last three years and Matilda was assisting with lots of heavy transfers. She believes her back pain started around that time. She wore a back brace for support at times but isn't sure it helped much. She now has pain that starts in her low back and radiates into buttock and lateral thigh and lateral calf . It is worse on the right but present bilaterally. She has numbness in similar distribution. Pt takes [place] ~ every other day when pain gets very bad. Smoking marijuana helps distract from her pain. 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 She has completed adjuvant radiation therapy as of August. She will start anastrozole soon and is concerned about reductions in estrogen and estradiol. Since cancer treatment, she has grown aware of tight and painful shoulders bilaterally (left worse than right) and reports painful lumps on the left side under breast tissue. Scar tissue seems tight and restricts movement. Recent nuc med bone scan was negative for metastasis. Matilda lives alone since the of her mother. She depends on her logan. She is considering a cancer support group and has good friends. Prior Treatments and Tests - Chiropractic - Nuc med bone scan September 2021 with no evidence of metastasis. - Lumbar MRI 2018: Lower lumbar spine degenerative changes are seen, which are most prominent at the L5-S1 level. - Cervical MRI 2018: Multilevel disc bulges. Spinal stenosis is present most notable at C5-6 secondary to disc bulge. Multiple foraminal narrowing most notable at C5- 6 secondary to uncovertebral arthropathy. PT-OP-C Subjective Start: 10/06/21 08:39 Freq: Status: Active Protocol: Document 07/05/22 14:21 LJ (Rec: 07/05/22 14:42 LJ [id number]) OP-PT Subjective Patient Comments Patient Comments Pt reports she has been in tremendous amount of pain and hasn't been able to exercise because of that. States she rolled her R buttock with a wiffle ball on her bed this morning and reports it was very painful. She feels very frustrated and exhausted because of the pain. PT-OP-D Balance Start: 10/06/21 08:39 Freq: Status: Active Protocol: Document 10/07/21 11:15 AW (Rec: 10/07/21 13:41 AW [id number]) Balance Tests Single Limb Standing Single Limb- Right 3 sec with fingertip support on wall Single Limb- Left 5 sec with fingertip support on wall PT-OP-F Manual Assessment Start: 10/06/21 08:39 Freq: Status: Active Protocol: Document 10/07/21 11:15 AW (Rec: 10/07/21 13:44 AW [id number]) Manual Assessments Soft Tissue Assessment Soft Tissue Mobility Assessment Severely limited internal rotation in bilateral hips. TTP at bilateral greater trochanters, deep external rotators, and gluteal region PT-OP-G Mobility & Gait Start: 10/06/21 08:39 Freq: Status: Active Protocol: Document 10/07/21 11:15 AW (Rec: 10/07/21 16:23 AW [id number]) OP Mobility Evaluation Bed Mobility Rolling Difficult and painful rolling Supine to and from Sit Increased time and cues needed for log roll Transfers Sit to Stand Definite need for use of hands OP Gait Assessment Comments Gait Comments Pt ambulates independently with lateral lean in ipsilateral stance, wide base of support, decreased RLE stance time, reduced heel strike and weak toe off. Generally unsteady. PT-OP-H Neuro Start: 10/06/21 08:39 Freq: Status: Active Protocol: Document 10/07/21 11:15 AW (Rec: 10/07/21 16:23 AW [id number]) Sensation Evaluation Gross Sensation Gross Sensation Left LE Impaired,Right LE Impaired Comments Summary Comments Pain and numbness in buttocks and posterolateral thigh, lateral calf. Right more significantly affected than left. Deep Tendon Reflex & Clonus Assessment Deep Tendon Reflex Bicep Deep Tendon Reflex 2+ Normal Achilles Deep Tendon Reflex 1+ Diminished Patellar Deep Tendon Reflex 2+ Normal PT-OP-J Posture/Palpation/Skin Start: 10/06/21 08:39 Freq: Status: Active Protocol: Document 10/07/21 11:15 AW (Rec: 10/07/21 16:23 AW [id number]) Posture Evaluation Comments Posture Comments Flat lumbar spine with hinge at L4-5. Extension severely limited. Decreased weightbearing RLE in static stance and in gait Skin Assessment Incisional Assessment Incision Appearance/Comments Left lumpectomy scar with significantly limited mobility . PT-OP-K Range of Motion Start: 10/06/21 08:39 Freq: Status: Active Protocol: Document 10/07/21 11:15 AW (Rec: 10/08/21 15:10 AW [id number]) Cervical Spine Range of Motion Cervical Spine Active Testing Position Sitting Flexion 45 Extension 25 Rotation Left 40 Rotation Right 40 Lateral Flexion Left 20 Lateral Flexion Right 15 ROM Limitations Soft Tissue Tightness,Pain Comments Lateral flexion limited by increased tone in upper traps bilaterally Lumbar Spine Range of Motion Lumbar Spine Active Testing Position Standing Comments Pt is able to bend forward with fingertips to within 8 from floor. Positive Danica sign. Lateral flexion severely limited and pt can only slide fingertips ~3 inches toward lateral knee. Shoulder Goniometric Range of Motion Shoulder Right Active Testing Position Sitting Flexion 140 Abduction 135 External Rotation at 0 degrees Abduction 50 Internal Rotation Behind Back (text) T10 Left Active Testing Position Sitting Flexion 140 Abduction 137 External Rotation at 0 degrees Abduction 55 Internal Rotation Behind Back (text) T12 Hip Goniometric Range of Motion Hip bilat Testing Position Supine Comments Internal rotation severely limited and end-range PROM does reproduce pain PT-OP-L Special Tests Start: 10/06/21 08:39 Freq: Status: Active Protocol: Document 10/07/21 11:15 AW (Rec: 10/07/21 16:23 AW [id number]) Special Tests Lumbar Spine Special Tests Slump Test Results positive for pain, numbness, tingling RLE 2nd most provocative position PT-OP-M Strength Start: 10/06/21 08:39 Freq: Status: Active Protocol: Document 06/10/22 15:18 [facility] (Rec: 06/10/22 16:47 SAK [id number]) Trunk Strength Trunk Manual Muscle Testing Flexion 3+ Fair+ Extension 3+ Fair+ Comments painful Hip Strength Hip Manual Muscle Testing Right Flexion (L2) 3- Fair- Extension (S1) 3 Fair Abduction 3 Fair Left Flexion (L2) 3- Fair- Extension (S1) 3+ Fair+ Abduction 3+ Fair+ Knee Strength Knee Manual Muscle Testing bilat Flexion (S2) 4 Good Extension (L3) 4 Good Comments pain with ext left Ankle/Foot Strength Ankle and Foot Manual Muscle Testing bilat Dorsiflexion (L4) 4 Good Plantarflexion (S1) 3- Fair- PT-OP-Q Treatments Start: 10/06/21 08:39 Freq: Status: Active Protocol: Document 06/10/22 15:18 [facility] (Rec: 06/10/22 16:47 [facility] [id number]) Therapeutic Exercises Supine Exercises piriformis stretch Side bilateral Reps/Minutes 30 ea LTR Supine Exercise Name lower trunk rotation Side bilateral Reps/Minutes [id number] Bridges Side bilateral Reps/Minutes x10 Comments cued heel drive Sitting Exercises spinal decompression Side bilateral Equipment Used chair Reps/Minutes 2x10 Manual Therapy Treatment Soft Tissue Mobilization IT band right Mobilization Type Instrument Assisted Intensity/Depth Moderate Body Position Sidelying right hip Body Location glutes, QL Mobilization Type Instrument Assisted,Sustained Pressure,Trigger Point Release Intensity/Depth Moderate Body Position Sidelying Manual Traction Lumbar Details strap Body Position Hooklying Reps/Duration 5 min Comments dec in pain Instructed in seated spinal decompression and added to HEP Other Other Manual Treatments MMT bilateral LEs Self-Care/Home Management Treatment Education Patient Education Home Exercise Program,Pain Management Other Education self-massage: tennis ball, rolling pin gentle yoga video YouTube Home exercise program Wear tights to decrease swelling and provide compression to varicose veins gentle low back decompression sitting in chair and pushing down with hands PT-OP-R Modalities Start: 10/06/21 08:39 Freq: Status: Active Protocol: Document 06/10/22 15:18 SAK (Rec: 06/10/22 16:47 SAK [id number]) Hot Pack/Cold Pack Treatment Cold Pack Location left knee Patient Position Hooklying Treatment Duration (minutes) 15 Patient Tolerance Good Hot Pack Location lumbar Patient Position Hooklying Treatment Duration (minutes) 15 Patient Tolerance Good Comments end of tx PT-OP-S Aquatic Treatment Start: 10/06/21 08:39 Freq: Status: Active Protocol: Document 07/05/22 14:21 [id number] (Rec: 07/05/22 14:42 LJ [id number]) Aquatics Treatment Pool Entry/Exit Pool Entry/Exit Method Stairs Assistance Independent Water Walking Sideways Water Level Chest Level [place] March Water Level Chest Level Level of Assistance Verbal Cues Marching Water Level Chest Level Comments UEs reaching to opp side knee Backwards Water Level Chest Level Comments cue abdominal bracing Forwards Water Level Chest Level Lower Extremity Stretches piriformis Equipment Ankle Floats Reps/Duration 2x30 free the hip Details at wall Body Position Standing Reps/Duration 10 B gastroc/soleus Details at wall Body Position Standing Reps/Duration 2 x 30 B HS Body Position Standing Reps/Duration 2 x 30 B Comments foot on wall hip flexors Body Position Standing Equipment Small Noodle Reps/Duration 2 x 30 B [place] Activities Other Activities traction #10 B Equipment lg blue float Duration 14 min Comments pt remained after appointment and did bicycling for several minutes Manual Techniques Aquatic Manual Traction RLE-incorporated into AquaStretch. Aquatic Massage AquaStretch on RLE foot,ankle, hip with ITB and piriformis release for reducing fascial adhesions, muscle tension, and improving flexibility in RLE PT-OP-T Assessment and Plan Start: 10/06/21 08:39 Freq: Status: Active Protocol: Document 07/05/22 14:21 LJ (Rec: 07/05/22 14:42 LJ [id number]) Physical Therapy Assessment Impairments Impairments Activity Tolerance,Balance, Gait,Pain,Posture,ROM, Sensation,Soft Tissue Mobility ,Strength Other Concerns Barriers to Rehabilitation lack of compliance chronicity of condition Goals Five Impairment activity tolerance Impairment LEFS 40% Oswestry disability index score 44% Senior Care Goal (LTG) Improve LEFS to at least 65%, decrease Oswestry to no greater than 25% as measure of improved functional activity tolerance LTG Duration 08/02/22 Four Impairment pain right low back, peng LE's Impairment 8/10 Short Term Goal (STG) decrease pain to no greater than 5/10 with all usual activities [employer] Goal (LTG) decrease pain to no greater than 3/10 with all usual activities LTG Duration 08/02/22 Three Impairment strength Short Term Goal (STG) Pt will improve bilateral hip strength to 4/5 all planes for improved stability in gait STG Duration goal met [employer] Goal (LTG) Pt will complete 10 reps on 30 -second sit to stand test without use of upper extremities as a measure of improved BLE strength 01/04/22: good goal progress; completed 7 reps 06/10/22: unable to complete due to left knee pain today LTG Duration 08/02/22 Two Impairment standing and walking tolerance Short Term Goal (STG) Pt will stand 20 minutes without increase in baseline pain to improve her ability to cook a simple meal for herself. 11/19/21 GOAL MET STG Duration goal met Senior Care Goal (LTG) Pt will walk for 30 minutes without increase in baseline pain to improve her ability to participate in a self- directed walking program. 01/04/22: good goal progress, can walk for 20 min without increase in baseline pain LTG Duration 08/02/22 One Impairment lacks HEP Short Term Goal (STG) Pt will be instructed in HEP for pain management, ROM, and core stabilization to support therapy services provided in clinic. 11/19/21 - GOAL MET STG Duration goal met [employer] Goal (LTG) Pt will be independent and compliant with HEP and aquatic exercise program for pain management, strength, and balance to sustain gains made in therapy and promote pain management and fitness long- term. 01/04/22: independent with land- based HEP. Continues to progress with aquatic exercise program 03/30/22: not seen in aquatic PT for greater than 1 month, unable to progress exercises today in more pain. Benefits from deep water traction 06/30/22: due to life stressors patient has not been able to comply with HEP; reviewed importance, updated HEP with addition of self spinal decompression and encouraged use of video for gentle yoga. Needs further progression and modification prior to discharge LTG Duration 08/02/22 Assessment Summary Assessment Pt entered water 15 minutes early and began walking. Due to high level of pain HIIT training postponed and focus was on AquaStretch, stretching , and traction. Pt remained in water continuing to exercise at a low level and stretch. Pt admits she needs to go to pool to do her own exercise program with handouts given her however she states she hurts too much to motivate herself to actually get in the water. Recommended she get in water and simply walk and avoid strenuous exercising and focus on gentle stretching and mild rolling of ITB and piriformis with tenning ball against wall to address pain and tightness Physical Therapy Plan Frequency and Duration Frequency of Treatment 1x/Week Duration of treatment (weeks) 8 Plan of Care Start Date 06/10/22 Plan of Care End Date 08/02/22 Therapeutic Interventions Therapeutic Interventions Aquatic Therapy,Balance Training,Gait Training,Home Exercise Program,Joint Mobilizations,Lymphedema Management,Manual Therapy, Neuromuscular Re-education, Self-Care/Home Management,Soft Tissue Mobilization,Taping, Therapeutic Activities, Therapeutic Exercises Modalities Cold Pack/Ice Massage,Electric Stimulation,Hot Packs Next Visit Focus/Plan Next Note Type Treatment Note Next Visit Plan Continue aquatic PT and 1 further land-based PT session to address PT goals, review HEP, progress as indicated. stress increased compliance for improved benefit. Progress to cardio and HIIT in aquatic PT as tolerated
--- NOTE | 2022-07-12 15:03 | PT-IP ANOTE ---
Patient no showed. Will be discharged if another no show.
--- NOTE | 2022-07-19 14:49 | PT.OTN ---
Current Diagnoses Malignant neoplasm of unspecified site of unspecified female breast (07/19/22) Lumbago with sciatica, unspecified side (07/19/22) Difficulty in walking, not elsewhere classified (07/19/22) Abnormal posture (07/19/22) Estrogen receptor positive status [ER+] (07/19/22) Physical Therapy Treatment Note PT-OP-A Visit Information Start: 10/06/21 08:39 Freq: Status: Active Protocol: Document 07/19/22 14:41 [facility] (Rec: 07/19/22 14:48 [facility] [id number]) Out-Patient Physical Therapy Visit Information Visit Information Visit Type Aquatic Treatment Note Visit Start Time 11:45 Visit Stop Time 12:45 Total Visit Minutes 45 Visit Number 21 Precautions Precautions osteopenia PT-OP-B Current Condition Start: 10/06/21 08:39 Freq: Status: Active Protocol: Document 06/21/22 14:23 [facility] (Rec: 06/21/22 14:30 [facility] [id number]) Current Condition History of Current Condition Onset Date chronic - at least 3 years for back and at least 3 months for shoulders Current Complaints back and leg pain; painful and tight shoulders History of Current Condition 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 Her mother had very limited mobility in the last three years and Matilda was assisting with lots of heavy transfers. She believes her back pain started around that time. She wore a back brace for support at times but isn't sure it helped much. She now has pain that starts in her low back and radiates into buttock and lateral thigh and lateral calf . It is worse on the right but present bilaterally. She has numbness in similar distribution. Pt takes [place] ~ every other day when pain gets very bad. Smoking marijuana helps distract from her pain. 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 She has completed adjuvant radiation therapy as of August. She will start anastrozole soon and is concerned about reductions in estrogen and estradiol. Since cancer treatment, she has grown aware of tight and painful shoulders bilaterally (left worse than right) and reports painful lumps on the left side under breast tissue. Scar tissue seems tight and restricts movement. Recent nuc med bone scan was negative for metastasis. Matilda lives alone since the of her mother. She depends on her logan. She is considering a cancer support group and has good friends. Prior Treatments and Tests - Chiropractic - Nuc med bone scan September 2021 with no evidence of metastasis. - Lumbar MRI 2018: Lower lumbar spine degenerative changes are seen, which are most prominent at the L5-S1 level. - Cervical MRI 2018: Multilevel disc bulges. Spinal stenosis is present most notable at C5-6 secondary to disc bulge. Multiple foraminal narrowing most notable at C5- 6 secondary to uncovertebral arthropathy. PT-OP-C Subjective Start: 10/06/21 08:39 Freq: Status: Active Protocol: Document 07/19/22 14:41 [facility] (Rec: 07/19/22 14:48 [facility] [id number]) OP-PT Subjective Patient Comments Patient Comments States she fell onto her right side when a dog she was walking got excited when it saw a squirrel and pulled her over. Pain increased. She did some icing and gentle sretching, some better. Hasn' t made it to the pool on her own this week. Reported 75% decrease in pain after manual technique last session. PT-OP-D Balance Start: 10/06/21 08:39 Freq: Status: Active Protocol: Document 10/07/21 11:15 [facility] (Rec: 10/07/21 13:41 AW [id number]) Balance Tests Single Limb Standing Single Limb- Right 3 sec with fingertip support on wall Single Limb- Left 5 sec with fingertip support on wall PT-OP-F Manual Assessment Start: 10/06/21 08:39 Freq: Status: Active Protocol: Document 10/07/21 11:15 [facility] (Rec: 10/07/21 13:44 AW [id number]) Manual Assessments Soft Tissue Assessment Soft Tissue Mobility Assessment Severely limited internal rotation in bilateral hips. TTP at bilateral greater trochanters, deep external rotators, and gluteal region PT-OP-G Mobility & Gait Start: 10/06/21 08:39 Freq: Status: Active Protocol: Document 10/07/21 11:15 [facility] (Rec: 10/07/21 16:23 AW [id number]) OP Mobility Evaluation Bed Mobility Rolling Difficult and painful rolling Supine to and from Sit Increased time and cues needed for log roll Transfers Sit to Stand Definite need for use of hands OP Gait Assessment Comments Gait Comments Pt ambulates independently with lateral lean in ipsilateral stance, wide base of support, decreased RLE stance time, reduced heel strike and weak toe off. Generally unsteady. PT-OP-H Neuro Start: 10/06/21 08:39 Freq: Status: Active Protocol: Document 10/07/21 11:15 AW (Rec: 10/07/21 16:23 AW [id number]) Sensation Evaluation Gross Sensation Gross Sensation Left LE Impaired,Right LE Impaired Comments Summary Comments Pain and numbness in buttocks and posterolateral thigh, lateral calf. Right more significantly affected than left. Deep Tendon Reflex & Clonus Assessment Deep Tendon Reflex Bicep Deep Tendon Reflex 2+ Normal Achilles Deep Tendon Reflex 1+ Diminished Patellar Deep Tendon Reflex 2+ Normal PT-OP-J Posture/Palpation/Skin Start: 10/06/21 08:39 Freq: Status: Active Protocol: Document 10/07/21 11:15 [facility] (Rec: 10/07/21 16:23 AW [id number]) Posture Evaluation Comments Posture Comments Flat lumbar spine with hinge at L4-5. Extension severely limited. Decreased weightbearing RLE in static stance and in gait Skin Assessment Incisional Assessment Incision Appearance/Comments Left lumpectomy scar with significantly limited mobility . PT-OP-K Range of Motion Start: 10/06/21 08:39 Freq: Status: Active Protocol: Document 10/07/21 11:15 [facility] (Rec: 10/08/21 15:10 AW [id number]) Cervical Spine Range of Motion Cervical Spine Active Testing Position Sitting Flexion 45 Extension 25 Rotation Left 40 Rotation Right 40 Lateral Flexion Left 20 Lateral Flexion Right 15 ROM Limitations Soft Tissue Tightness,Pain Comments Lateral flexion limited by increased tone in upper traps bilaterally Lumbar Spine Range of Motion Lumbar Spine Active Testing Position Standing Comments Pt is able to bend forward with fingertips to within 8 from floor. Positive Danica sign. Lateral flexion severely limited and pt can only slide fingertips ~3 inches toward lateral knee. Shoulder Goniometric Range of Motion Shoulder Right Active Testing Position Sitting Flexion 140 Abduction 135 External Rotation at 0 degrees Abduction 50 Internal Rotation Behind Back (text) T10 Left Active Testing Position Sitting Flexion 140 Abduction 137 External Rotation at 0 degrees Abduction 55 Internal Rotation Behind Back (text) T12 Hip Goniometric Range of Motion Hip bilat Testing Position Supine Comments Internal rotation severely limited and end-range PROM does reproduce pain PT-OP-L Special Tests Start: 10/06/21 08:39 Freq: Status: Active Protocol: Document 10/07/21 11:15 AW (Rec: 10/07/21 16:23 AW [id number]) Special Tests Lumbar Spine Special Tests Slump Test Results positive for pain, numbness, tingling RLE 2nd most provocative position PT-OP-M Strength Start: 10/06/21 08:39 Freq: Status: Active Protocol: Document 06/10/22 15:18 [facility] (Rec: 06/10/22 16:47 [facility] [id number]) Trunk Strength Trunk Manual Muscle Testing Flexion 3+ Fair+ Extension 3+ Fair+ Comments painful Hip Strength Hip Manual Muscle Testing Right Flexion (L2) 3- Fair- Extension (S1) 3 Fair Abduction 3 Fair Left Flexion (L2) 3- Fair- Extension (S1) 3+ Fair+ Abduction 3+ Fair+ Knee Strength Knee Manual Muscle Testing bilat Flexion (S2) 4 Good Extension (L3) 4 Good Comments pain with ext left Ankle/Foot Strength Ankle and Foot Manual Muscle Testing bilat Dorsiflexion (L4) 4 Good Plantarflexion (S1) 3- Fair- PT-OP-Q Treatments Start: 10/06/21 08:39 Freq: Status: Active Protocol: Document 06/10/22 15:18 [facility] (Rec: 06/10/22 16:47 [facility] [id number]) Therapeutic Exercises Supine Exercises piriformis stretch Side bilateral Reps/Minutes 30 ea LTR Supine Exercise Name lower trunk rotation Side bilateral Reps/Minutes [id number] Bridges Side bilateral Reps/Minutes x10 Comments cued heel drive Sitting Exercises spinal decompression Side bilateral Equipment Used chair Reps/Minutes 2x10 Manual Therapy Treatment Soft Tissue Mobilization IT band right Mobilization Type Instrument Assisted Intensity/Depth Moderate Body Position Sidelying right hip Body Location glutes, QL Mobilization Type Instrument Assisted,Sustained Pressure,Trigger Point Release Intensity/Depth Moderate Body Position Sidelying Manual Traction Lumbar Details strap Body Position Hooklying Reps/Duration 5 min Comments dec in pain Instructed in seated spinal decompression and added to HEP Other Other Manual Treatments MMT bilateral LEs Self-Care/Home Management Treatment Education Patient Education Home Exercise Program,Pain Management Other Education self-massage: tennis ball, rolling pin gentle yoga video YouTube Home exercise program Wear tights to decrease swelling and provide compression to varicose veins gentle low back decompression sitting in chair and pushing down with hands PT-OP-R Modalities Start: 10/06/21 08:39 Freq: Status: Active Protocol: Document 06/10/22 15:18 [facility] (Rec: 06/10/22 16:47 [facility] [id number]) Hot Pack/Cold Pack Treatment Cold Pack Location left knee Patient Position Hooklying Treatment Duration (minutes) 15 Patient Tolerance Good Hot Pack Location lumbar Patient Position Hooklying Treatment Duration (minutes) 15 Patient Tolerance Good Comments end of tx PT-OP-S Aquatic Treatment Start: 10/06/21 08:39 Freq: Status: Active Protocol: Document 07/19/22 14:41 [facility] (Rec: 07/19/22 14:48 [facility] [id number]) Aquatics Treatment Pool Entry/Exit Pool Entry/Exit Method Stairs Assistance Independent Water Walking Sideways Water Level Chest Level Level of Assistance Verbal Cues [place] March Water Level Chest Level Level of Assistance Verbal Cues Marching Water Level Chest Level Comments UEs reaching to opp side knee Forwards Water Level Chest Level Level of Assistance Verbal Cues Reading Activities Reading Activities Bicycle,Bicycle Backwards, Cross Country,Running Other Activities pendulum partial prone >< supine traction #10 B Equipment lg blue float, bb's Duration 20 min Manual Techniques Aquatic Manual Traction RLE-incorporated into AquaStretch. Aquatic Massage AquaStretch on RLE foot,ankle, hip with ITB and piriformis release for reducing fascial adhesions, muscle tension, and improving flexibility in RLE PT-OP-T Assessment and Plan Start: 10/06/21 08:39 Freq: Status: Active Protocol: Document 07/19/22 14:41 [facility] (Rec: 07/19/22 14:48 [facility] [id number]) Physical Therapy Assessment Impairments Impairments Activity Tolerance,Balance, Gait,Pain,Posture,ROM, Sensation,Soft Tissue Mobility ,Strength Other Concerns Barriers to Rehabilitation lack of compliance chronicity of condition Goals Five Impairment activity tolerance Impairment LEFS 40% Oswestry disability index score 44% Hob Machine Operator Goal (LTG) Improve LEFS to at least 65%, decrease Oswestry to no greater than 25% as measure of improved functional activity tolerance LTG Duration 08/02/22 Four Impairment pain right low back, peng LE's Impairment 8/10 Short Term Goal (STG) decrease pain to no greater than 5/10 with all usual activities Hob Machine Operator Goal (LTG) decrease pain to no greater than 3/10 with all usual activities LTG Duration 08/02/22 Three Impairment strength Short Term Goal (STG) Pt will improve bilateral hip strength to 4/5 all planes for improved stability in gait STG Duration goal met Assisted Goal (LTG) Pt will complete 10 reps on 30 -second sit to stand test without use of upper extremities as a measure of improved BLE strength 01/04/22: good goal progress; completed 7 reps 06/10/22: unable to complete due to left knee pain today LTG Duration 08/02/22 Two Impairment standing and walking tolerance Short Term Goal (STG) Pt will stand 20 minutes without increase in baseline pain to improve her ability to cook a simple meal for herself. 11/19/21 GOAL MET STG Duration goal met Assisted Goal (LTG) Pt will walk for 30 minutes without increase in baseline pain to improve her ability to participate in a self- directed walking program. 01/04/22: good goal progress, can walk for 20 min without increase in baseline pain LTG Duration 08/02/22 One Impairment lacks HEP Short Term Goal (STG) Pt will be instructed in HEP for pain management, ROM, and core stabilization to support therapy services provided in clinic. 11/19/21 - GOAL MET STG Duration goal met Hob Machine Operator Goal (LTG) Pt will be independent and compliant with HEP and aquatic exercise program for pain management, strength, and balance to sustain gains made in therapy and promote pain management and fitness long- term. 01/04/22: independent with land- based HEP. Continues to progress with aquatic exercise program 03/30/22: not seen in aquatic PT for greater than 1 month, unable to progress exercises today in more pain. Benefits from deep water traction 06/30/22: due to life stressors patient has not been able to comply with HEP; reviewed importance, updated HEP with addition of self spinal decompression and encouraged use of video for gentle yoga. Needs further progression and modification prior to discharge LTG Duration 08/02/22 Physical Therapy Plan Frequency and Duration Frequency of Treatment 1x/Week Duration of treatment (weeks) 8 Plan of Care Start Date 06/10/22 Plan of Care End Date 08/02/22 Therapeutic Interventions Therapeutic Interventions Aquatic Therapy,Balance Training,Gait Training,Home Exercise Program,Joint Mobilizations,Lymphedema Management,Manual Therapy, Neuromuscular Re-education, Self-Care/Home Management,Soft Tissue Mobilization,Taping, Therapeutic Activities, Therapeutic Exercises Modalities Cold Pack/Ice Massage,Electric Stimulation,Hot Packs Next Visit Focus/Plan Next Note Type Treatment Note Next Visit Plan Continue aquatic PT and 1 further land-based PT session to address PT goals, review HEP, progress as indicated. stress increased compliance for improved benefit. Manual AquaStretch technique. Progress to cardio and HIIT in aquatic PT as tolerated
--- NOTE | 2022-07-26 16:46 | PT.OTN ---
Current Diagnoses Malignant neoplasm of unspecified site of unspecified female breast (07/26/22) Lumbago with sciatica, unspecified side (07/26/22) Difficulty in walking, not elsewhere classified (07/26/22) Abnormal posture (07/26/22) Estrogen receptor positive status [ER+] (07/26/22) Physical Therapy Treatment Note PT-OP-A Visit Information Start: 10/06/21 08:39 Freq: Status: Active Protocol: Document 07/26/22 16:41 [facility] (Rec: 07/27/22 16:46 [facility] [id number]) Out-Patient Physical Therapy Visit Information Visit Information Visit Type Aquatic Treatment Note Visit Start Time 11:45 Visit Stop Time 12:45 Total Visit Minutes 45 Visit Number 22 Precautions Precautions osteopenia PT-OP-B Current Condition Start: 10/06/21 08:39 Freq: Status: Active Protocol: Document 06/21/22 14:23 [facility] (Rec: 06/21/22 14:30 [facility] [id number]) Current Condition History of Current Condition Onset Date chronic - at least 3 years for back and at least 3 months for shoulders Current Complaints back and leg pain; painful and tight shoulders History of Current Condition 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 Her mother had very limited mobility in the last three years and Matilda was assisting with lots of heavy transfers. She believes her back pain started around that time. She wore a back brace for support at times but isn't sure it helped much. She now has pain that starts in her low back and radiates into buttock and lateral thigh and lateral calf . It is worse on the right but present bilaterally. She has numbness in similar distribution. Pt takes [place] ~ every other day when pain gets very bad. Smoking marijuana helps distract from her pain. 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 She has completed adjuvant radiation therapy as of August. She will start anastrozole soon and is concerned about reductions in estrogen and estradiol. Since cancer treatment, she has grown aware of tight and painful shoulders bilaterally (left worse than right) and reports painful lumps on the left side under breast tissue. Scar tissue seems tight and restricts movement. Recent nuc med bone scan was negative for metastasis. Matilda lives alone since the of her mother. She depends on her logan. She is considering a cancer support group and has good friends. Prior Treatments and Tests - Chiropractic - Nuc med bone scan September 2021 with no evidence of metastasis. - Lumbar MRI 2018: Lower lumbar spine degenerative changes are seen, which are most prominent at the L5-S1 level. - Cervical MRI 2018: Multilevel disc bulges. Spinal stenosis is present most notable at C5-6 secondary to disc bulge. Multiple foraminal narrowing most notable at C5- 6 secondary to uncovertebral arthropathy. PT-OP-C Subjective Start: 10/06/21 08:39 Freq: Status: Active Protocol: Document 07/26/22 16:41 [facility] (Rec: 07/27/22 16:46 [facility] [id number]) OP-PT Subjective Patient Comments Patient Comments Pretty sore today, hasn't been able to make it to the pool on her own over the past week. PT-OP-D Balance Start: 10/06/21 08:39 Freq: Status: Active Protocol: Document 10/07/21 11:15 [facility] (Rec: 10/07/21 13:41 AW [id number]) Balance Tests Single Limb Standing Single Limb- Right 3 sec with fingertip support on wall Single Limb- Left 5 sec with fingertip support on wall PT-OP-F Manual Assessment Start: 10/06/21 08:39 Freq: Status: Active Protocol: Document 10/07/21 11:15 [facility] (Rec: 10/07/21 13:44 [facility] [id number]) Manual Assessments Soft Tissue Assessment Soft Tissue Mobility Assessment Severely limited internal rotation in bilateral hips. TTP at bilateral greater trochanters, deep external rotators, and gluteal region PT-OP-G Mobility & Gait Start: 10/06/21 08:39 Freq: Status: Active Protocol: Document 10/07/21 11:15 [facility] (Rec: 10/07/21 16:23 AW [id number]) OP Mobility Evaluation Bed Mobility Rolling Difficult and painful rolling Supine to and from Sit Increased time and cues needed for log roll Transfers Sit to Stand Definite need for use of hands OP Gait Assessment Comments Gait Comments Pt ambulates independently with lateral lean in ipsilateral stance, wide base of support, decreased RLE stance time, reduced heel strike and weak toe off. Generally unsteady. PT-OP-H Neuro Start: 10/06/21 08:39 Freq: Status: Active Protocol: Document 10/07/21 11:15 AW (Rec: 10/07/21 16:23 AW [id number]) Sensation Evaluation Gross Sensation Gross Sensation Left LE Impaired,Right LE Impaired Comments Summary Comments Pain and numbness in buttocks and posterolateral thigh, lateral calf. Right more significantly affected than left. Deep Tendon Reflex & Clonus Assessment Deep Tendon Reflex Bicep Deep Tendon Reflex 2+ Normal Achilles Deep Tendon Reflex 1+ Diminished Patellar Deep Tendon Reflex 2+ Normal PT-OP-J Posture/Palpation/Skin Start: 10/06/21 08:39 Freq: Status: Active Protocol: Document 10/07/21 11:15 [facility] (Rec: 10/07/21 16:23 AW [id number]) Posture Evaluation Comments Posture Comments Flat lumbar spine with hinge at L4-5. Extension severely limited. Decreased weightbearing RLE in static stance and in gait Skin Assessment Incisional Assessment Incision Appearance/Comments Left lumpectomy scar with significantly limited mobility . PT-OP-K Range of Motion Start: 10/06/21 08:39 Freq: Status: Active Protocol: Document 10/07/21 11:15 AW (Rec: 10/08/21 15:10 AW [id number]) Cervical Spine Range of Motion Cervical Spine Active Testing Position Sitting Flexion 45 Extension 25 Rotation Left 40 Rotation Right 40 Lateral Flexion Left 20 Lateral Flexion Right 15 ROM Limitations Soft Tissue Tightness,Pain Comments Lateral flexion limited by increased tone in upper traps bilaterally Lumbar Spine Range of Motion Lumbar Spine Active Testing Position Standing Comments Pt is able to bend forward with fingertips to within 8 from floor. Positive [place] sign. Lateral flexion severely limited and pt can only slide fingertips ~3 inches toward lateral knee. Shoulder Goniometric Range of Motion Shoulder Right Active Testing Position Sitting Flexion 140 Abduction 135 External Rotation at 0 degrees Abduction 50 Internal Rotation Behind Back (text) T10 Left Active Testing Position Sitting Flexion 140 Abduction 137 External Rotation at 0 degrees Abduction 55 Internal Rotation Behind Back (text) T12 Hip Goniometric Range of Motion Hip bilat Testing Position Supine Comments Internal rotation severely limited and end-range PROM does reproduce pain PT-OP-L Special Tests Start: 10/06/21 08:39 Freq: Status: Active Protocol: Document 10/07/21 11:15 AW (Rec: 10/07/21 16:23 AW [id number]) Special Tests Lumbar Spine Special Tests Slump Test Results positive for pain, numbness, tingling RLE 2nd most provocative position PT-OP-M Strength Start: 10/06/21 08:39 Freq: Status: Active Protocol: Document 06/10/22 15:18 [facility] (Rec: 06/10/22 16:47 [facility] [id number]) Trunk Strength Trunk Manual Muscle Testing Flexion 3+ Fair+ Extension 3+ Fair+ Comments painful Hip Strength Hip Manual Muscle Testing Right Flexion (L2) 3- Fair- Extension (S1) 3 Fair Abduction 3 Fair Left Flexion (L2) 3- Fair- Extension (S1) 3+ Fair+ Abduction 3+ Fair+ Knee Strength Knee Manual Muscle Testing bilat Flexion (S2) 4 Good Extension (L3) 4 Good Comments pain with ext left Ankle/Foot Strength Ankle and Foot Manual Muscle Testing bilat Dorsiflexion (L4) 4 Good Plantarflexion (S1) 3- Fair- PT-OP-Q Treatments Start: 10/06/21 08:39 Freq: Status: Active Protocol: Document 06/10/22 15:18 [facility] (Rec: 06/10/22 16:47 [facility] [id number]) Therapeutic Exercises Supine Exercises piriformis stretch Side bilateral Reps/Minutes 30 ea LTR Supine Exercise Name lower trunk rotation Side bilateral Reps/Minutes [id number] Bridges Side bilateral Reps/Minutes x10 Comments cued heel drive Sitting Exercises spinal decompression Side bilateral Equipment Used chair Reps/Minutes 2x10 Manual Therapy Treatment Soft Tissue Mobilization IT band right Mobilization Type Instrument Assisted Intensity/Depth Moderate Body Position Sidelying right hip Body Location glutes, QL Mobilization Type Instrument Assisted,Sustained Pressure,Trigger Point Release Intensity/Depth Moderate Body Position Sidelying Manual Traction Lumbar Details strap Body Position Hooklying Reps/Duration 5 min Comments dec in pain Instructed in seated spinal decompression and added to HEP Other Other Manual Treatments MMT bilateral LEs Self-Care/Home Management Treatment Education Patient Education Home Exercise Program,Pain Management Other Education self-massage: tennis ball, rolling pin gentle yoga video YouTube Home exercise program Wear tights to decrease swelling and provide compression to varicose veins gentle low back decompression sitting in chair and pushing down with hands PT-OP-R Modalities Start: 10/06/21 08:39 Freq: Status: Active Protocol: Document 06/10/22 15:18 [facility] (Rec: 06/10/22 16:47 [facility] [id number]) Hot Pack/Cold Pack Treatment Cold Pack Location left knee Patient Position Hooklying Treatment Duration (minutes) 15 Patient Tolerance Good Hot Pack Location lumbar Patient Position Hooklying Treatment Duration (minutes) 15 Patient Tolerance Good Comments end of tx PT-OP-S Aquatic Treatment Start: 10/06/21 08:39 Freq: Status: Active Protocol: Document 07/26/22 16:41 [facility] (Rec: 07/27/22 16:46 [facility] [id number]) Aquatics Treatment Pool Entry/Exit Pool Entry/Exit Method Stairs Assistance Independent Water Walking Sideways Water Level Chest Level Walking Equipment Ankle Floats Level of Assistance Verbal Cues [place] March Water Level Chest Level Walking Equipment Ankle Floats Level of Assistance Verbal Cues March[place] Water Level Chest Level Walking Equipment Ankle Floats Comments UEs reaching to opp side knee Backwards Water Level Chest Level Walking Equipment Ankle Floats Comments cue abdominal bracing Forwards Water Level Chest Level Walking Equipment Ankle Floats Level of Assistance Verbal Cues Lower Extremity Exercises 4 way hip Details at wall Body Position Standing Water Level Chest Level Equipment Ankle Floats Reps/Duration 10 each B Comments cues for posture and core engagement Lower Extremity Stretches adductors Equipment Ankle Floats Reps/Duration 2x30 ITB Body Position Standing Equipment Ankle Floats piriformis Equipment Ankle Floats Reps/Duration 2x30 HS Body Position Standing Equipment Ankle Floats Reps/Duration 2 x 30 B hip flexors Details + quads Body Position Standing Equipment Ankle Floats Reps/Duration 2 x 30 B [place] Activities [place] Activities Bicycle,Bicycle Backwards, Cross [place],Running Other Activities pendulum partial prone >< supine Equipment lg blue float, bb's Duration 20 min PT-OP-T Assessment and Plan Start: 10/06/21 08:39 Freq: Status: Active Protocol: Document 07/26/22 16:41 [facility] (Rec: 07/27/22 16:46 [facility] [id number]) Physical Therapy Assessment Impairments Impairments Activity Tolerance,Balance, Gait,Pain,Posture,ROM, Sensation,Soft Tissue Mobility ,Strength Other Concerns Barriers to Rehabilitation lack of compliance chronicity of condition Goals Five Impairment activity tolerance Impairment LEFS 40% Oswestry disability index score 44% Manager Training Goal (LTG) Improve LEFS to at least 65%, decrease Oswestry to no greater than 25% as measure of improved functional activity tolerance LTG Duration 08/02/22 Four Impairment pain right low back, peng LE's Impairment 8/10 Short Term Goal (STG) decrease pain to no greater than 5/10 with all usual activities Manager Training Goal (LTG) decrease pain to no greater than 3/10 with all usual activities LTG Duration 08/02/22 Three Impairment strength Short Term Goal (STG) Pt will improve bilateral hip strength to 4/5 all planes for improved stability in gait STG Duration goal met Snf Goal (LTG) Pt will complete 10 reps on 30 -second sit to stand test without use of upper extremities as a measure of improved BLE strength 01/04/22: good goal progress; completed 7 reps 06/10/22: unable to complete due to left knee pain today LTG Duration 08/02/22 Two Impairment standing and walking tolerance Short Term Goal (STG) Pt will stand 20 minutes without increase in baseline pain to improve her ability to cook a simple meal for herself. 11/19/21 GOAL MET STG Duration goal met Snf Goal (LTG) Pt will walk for 30 minutes without increase in baseline pain to improve her ability to participate in a self- directed walking program. 01/04/22: good goal progress, can walk for 20 min without increase in baseline pain LTG Duration 08/02/22 One Impairment lacks HEP Short Term Goal (STG) Pt will be instructed in HEP for pain management, ROM, and core stabilization to support therapy services provided in clinic. 11/19/21 - GOAL MET STG Duration goal met Snf Goal (LTG) Pt will be independent and compliant with HEP and aquatic exercise program for pain management, strength, and balance to sustain gains made in therapy and promote pain management and fitness long- term. 01/04/22: independent with land- based HEP. Continues to progress with aquatic exercise program 03/30/22: not seen in aquatic PT for greater than 1 month, unable to progress exercises today in more pain. Benefits from deep water traction 06/30/22: due to life stressors patient has not been able to comply with HEP; reviewed importance, updated HEP with addition of self spinal decompression and encouraged use of video for gentle yoga. Needs further progression and modification prior to discharge LTG Duration 08/02/22 Assessment Summary Assessment reported feeling good after treatment using ankle floats, didn't feel the need for manual treatment or traction. Physical Therapy Plan Frequency and Duration Frequency of Treatment 1x/Week Duration of treatment (weeks) 8 Plan of Care Start Date 06/10/22 Plan of Care End Date 08/02/22 Therapeutic Interventions Therapeutic Interventions Aquatic Therapy,Balance Training,Gait Training,Home Exercise Program,Joint Mobilizations,Lymphedema Management,Manual Therapy, Neuromuscular Re-education, Self-Care/Home Management,Soft Tissue Mobilization,Taping, Therapeutic Activities, Therapeutic Exercises Modalities Cold Pack/Ice Massage,Electric Stimulation,Hot Packs Next Visit Focus/Plan Next Note Type Treatment Note Next Visit Plan Progress to cardio and HIIT in aquatic PT as tolerated. Continue use of ankle floats for increased core and LE challenge, improved stretching
--- NOTE | 2022-08-02 09:54 | PT-OP ANOTE ---
cancelled PT appointment last minute, no further appointments scheduled. Anticipate discharge from PT for this patient.
--- NOTE | 2022-08-04 09:50 | PT.OPDS ---
Current Diagnoses Malignant neoplasm of unspecified site of unspecified female breast (07/26/22) Lumbago with sciatica, unspecified side (07/26/22) Difficulty in walking, not elsewhere classified (07/26/22) Abnormal posture (07/26/22) Estrogen receptor positive status [ER+] (07/26/22) Visit Care Team Role Provider Type Santhosh Prescott MD Family Provider Non-Staff Primary Care Provider Specialty: Family Practice Address: [address] [place] [address], [address], [place], [address] Email: Corky Forbes MD Attending Provider Non-Staff Referring Provider Specialty: Medical Address: [address] [place] [address], [id number] Email: Visit Number Visit Number 22 Discharge Summary PT-OP-B Current Condition Start: 10/06/21 08:39 Freq: Status: Active Protocol: Document 06/21/22 14:23 [facility] (Rec: 06/21/22 14:30 [facility] [id number]) Current Condition History of Current Condition Onset Date chronic - at least 3 years for back and at least 3 months for shoulders Current Complaints back and leg pain; painful and tight shoulders History of Current Condition 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 Her mother had very limited mobility in the last three years and Matilda was assisting with lots of heavy transfers. She believes her back pain started around that time. She wore a back brace for support at times but isn't sure it helped much. She now has pain that starts in her low back and radiates into buttock and lateral thigh and lateral calf . It is worse on the right but present bilaterally. She has numbness in similar distribution. Pt takes [place] ~ every other day when pain gets very bad. Smoking marijuana helps distract from her pain. 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 She has completed adjuvant radiation therapy as of August. She will start anastrozole soon and is concerned about reductions in estrogen and estradiol. Since cancer treatment, she has grown aware of tight and painful shoulders bilaterally (left worse than right) and reports painful lumps on the left side under breast tissue. Scar tissue seems tight and restricts movement. Recent nuc med bone scan was negative for metastasis. Matilda lives alone since the of her mother. She depends on her logan. She is considering a cancer support group and has good friends. Prior Treatments and Tests - Chiropractic - Nuc med bone scan September 2021 with no evidence of metastasis. - Lumbar MRI 2018: Lower lumbar spine degenerative changes are seen, which are most prominent at the L5-S1 level. - Cervical MRI 2018: Multilevel disc bulges. Spinal stenosis is present most notable at C5-6 secondary to disc bulge. Multiple foraminal narrowing most notable at C5- 6 secondary to uncovertebral arthropathy. PT-OP-C Subjective Start: 10/06/21 08:39 Freq: Status: Active Protocol: Document 07/26/22 16:41 [facility] (Rec: 07/27/22 16:46 [facility] [id number]) OP-PT Subjective Patient Comments Patient Comments Pretty sore today, hasn't been able to make it to the pool on her own over the past week. PT-OP-D Balance Start: 10/06/21 08:39 Freq: Status: Active Protocol: Document 10/07/21 11:15 [facility] (Rec: 10/07/21 13:41 AW [id number]) Balance Tests Single Limb Standing Single Limb- Right 3 sec with fingertip support on wall Single Limb- Left 5 sec with fingertip support on wall PT-OP-F Manual Assessment Start: 10/06/21 08:39 Freq: Status: Active Protocol: Document 10/07/21 11:15 [facility] (Rec: 10/07/21 13:44 AW [id number]) Manual Assessments Soft Tissue Assessment Soft Tissue Mobility Assessment Severely limited internal rotation in bilateral hips. TTP at bilateral greater trochanters, deep external rotators, and gluteal region PT-OP-G Mobility & Gait Start: 10/06/21 08:39 Freq: Status: Active Protocol: Document 10/07/21 11:15 [facility] (Rec: 10/07/21 16:23 AW [id number]) OP Mobility Evaluation Bed Mobility Rolling Difficult and painful rolling Supine to and from Sit Increased time and cues needed for log roll Transfers Sit to Stand Definite need for use of hands OP Gait Assessment Comments Gait Comments Pt ambulates independently with lateral lean in ipsilateral stance, wide base of support, decreased RLE stance time, reduced heel strike and weak toe off. Generally unsteady. PT-OP-H Neuro Start: 10/06/21 08:39 Freq: Status: Active Protocol: Document 10/07/21 11:15 AW (Rec: 10/07/21 16:23 AW [id number]) Sensation Evaluation Gross Sensation Gross Sensation Left LE Impaired,Right LE Impaired Comments Summary Comments Pain and numbness in buttocks and posterolateral thigh, lateral calf. Right more significantly affected than left. Deep Tendon Reflex & Clonus Assessment Deep Tendon Reflex Bicep Deep Tendon Reflex 2+ Normal Achilles Deep Tendon Reflex 1+ Diminished Patellar Deep Tendon Reflex 2+ Normal PT-OP-J Posture/Palpation/Skin Start: 10/06/21 08:39 Freq: Status: Active Protocol: Document 10/07/21 11:15 AW (Rec: 10/07/21 16:23 AW [id number]) Posture Evaluation Comments Posture Comments Flat lumbar spine with hinge at L4-5. Extension severely limited. Decreased weightbearing RLE in static stance and in gait Skin Assessment Incisional Assessment Incision Appearance/Comments Left lumpectomy scar with significantly limited mobility . PT-OP-K Range of Motion Start: 10/06/21 08:39 Freq: Status: Active Protocol: Document 10/07/21 11:15 AW (Rec: 10/08/21 15:10 AW [id number]) Cervical Spine Range of Motion Cervical Spine Active Testing Position Sitting Flexion 45 Extension 25 Rotation Left 40 Rotation Right 40 Lateral Flexion Left 20 Lateral Flexion Right 15 ROM Limitations Soft Tissue Tightness,Pain Comments Lateral flexion limited by increased tone in upper traps bilaterally Lumbar Spine Range of Motion Lumbar Spine Active Testing Position Standing Comments Pt is able to bend forward with fingertips to within 8 from floor. Positive [place] sign. Lateral flexion severely limited and pt can only slide fingertips ~3 inches toward lateral knee. Shoulder Goniometric Range of Motion Shoulder Right Active Testing Position Sitting Flexion 140 Abduction 135 External Rotation at 0 degrees Abduction 50 Internal Rotation Behind Back (text) T10 Left Active Testing Position Sitting Flexion 140 Abduction 137 External Rotation at 0 degrees Abduction 55 Internal Rotation Behind Back (text) T12 Hip Goniometric Range of Motion Hip bilat Testing Position Supine Comments Internal rotation severely limited and end-range PROM does reproduce pain PT-OP-L Special Tests Start: 10/06/21 08:39 Freq: Status: Active Protocol: Document 10/07/21 11:15 AW (Rec: 10/07/21 16:23 AW [id number]) Special Tests Lumbar Spine Special Tests Slump Test Results positive for pain, numbness, tingling RLE 2nd most provocative position PT-OP-M Strength Start: 10/06/21 08:39 Freq: Status: Active Protocol: Document 06/10/22 15:18 [facility] (Rec: 06/10/22 16:47 [facility] [id number]) Trunk Strength Trunk Manual Muscle Testing Flexion 3+ Fair+ Extension 3+ Fair+ Comments painful Hip Strength Hip Manual Muscle Testing Right Flexion (L2) 3- Fair- Extension (S1) 3 Fair Abduction 3 Fair Left Flexion (L2) 3- Fair- Extension (S1) 3+ Fair+ Abduction 3+ Fair+ Knee Strength Knee Manual Muscle Testing bilat Flexion (S2) 4 Good Extension (L3) 4 Good Comments pain with ext left Ankle/Foot Strength Ankle and Foot Manual Muscle Testing bilat Dorsiflexion (L4) 4 Good Plantarflexion (S1) 3- Fair- PT-OP-T Assessment and Plan Start: 10/06/21 08:39 Freq: Status: Active Protocol: Document 08/04/22 09:48 [facility] (Rec: 08/04/22 09:50 [facility] [id number]) Physical Therapy Plan Discharge Physical Therapy Discharge Comments Called patient and discussesd POC, need to discharge from PT at this time; patient attendance very inconsistent. She needs to go to pool on own and has good ability to do that with written aquatic exercise program; PT to send. Patient in agreement.
== END 2022-08-05 09:23 | disposition home or self-care (01) ==
LOC: PHYS 10:15
PROVIDERS: Family Provider Family Medicine; PCP Family Medicine; Referring Provider Radiology Radiation Oncology; Visit Provider Radiology Radiation Oncology
DX: C50.919 Malignant neoplasm of unspecified site of unspecified female breast (principal); Z17.0 Estrogen receptor positive status [ER+]; M54.40 Lumbago with sciatica, unspecified side; R29.3 Abnormal posture; R26.2 Difficulty in walking, not elsewhere classified
CPT/HCPCS: 97010; 97110; 97113; 97140; 97162; 97530; 97535

== ENCOUNTER 2023-04-07 12:19 | Day surgery (SDC) | payer MEDICARE, MEDICAID, SELFPAY ==
[2023-04-07 12:36] VITALS: BP 129/90; PULSE 75; RESP 17; TEMP 36.4; O2SAT 100; BMI 36.6
[2023-04-07] MEDS: LACTATED RINGERS 1,000 ML 125 ML IV (13:08)
--- NOTE | 2023-04-07 13:53 | P.HP_ITS ---
History of Present Illness History of Present Illness Date Patient Seen: 04/07/23 Time Patient Seen: 13:53 Chief complaint: Dx Colonoscopy Narrative: Matilda is here for her colonoscopy for a family history of colon cancer. Please see the note from March for more details. [facility] Medical History (Updated 03/07/23 @ 10:54 by Dewayne Akers MD) Chicken pox (1966) Chickenpox (1966) Colon polyps (2013) Fibrocystic breast (1999) Flat feet (1956) Foot pain (1956) Hematuria Herpes simplex (1997) History of multiple miscarriages Hypothyroidism (1999) Lichen sclerosus of female genitalia Low back pain radiating down leg Neck pain, chronic Paresthesia and pain of both upper extremities Pure hypercholesterolemia (11/23/16) PVC (premature ventricular contraction) (2013) Restless leg syndrome (2012) Scarring of conjunctiva of left eye (2013) Shoulder pain, left (2015) Sleep apnea (2012) Varicose veins of left lower extremity (~2015) Surgical History Anesthesia History of orthopedic surgery (1983) Status post endovenous radiofrequency ablation (RFA) of saphenous vein (~2015) Family History Father Colon cancer Stroke Heart attack Mother Age: 99 CAD (coronary artery disease) Stroke PAD (peripheral artery disease) Urinary incontinence Dysphagia Dementia Sister Age: 76 Kidney disease Thyroid disorder Sister Age: 71 Anorexic Female homosexual Depression Thyroid disorder Grandfather Heart attack Dementia Grandmother Congestive heart failure Enlarged kidney Grandfather Heart attack Grandmother No problems noted. Social History marital status: household members: none lives independently: Yes education level: college Smoking Status: Never smoker alcohol intake: current substance use type: does not use Meds Home Medications and Allergies Home Medications Medication Instructions Recorded Confirmed Type levothyroxine 100 mcg tablet 100 mcg PO Q DAY #90 tabs 06/16/18 04/07/23 Rx apixaban 5 mg tablet (Eliquis) 5 mg PO BID 06/24/21 04/07/23 History aspirin 81 mg tablet,delayed 81 mg PO DAILY 06/24/21 04/07/23 History release bisoprolol fumarate 10 mg tablet 10 mg PO DAILY 06/24/21 04/07/23 History hydrocodone 5 mg-acetaminophen 325 1 tab PO Q8H PRN Pain, Moderate 03/07/23 04/07/23 History mg tablet letrozole 2.5 mg tablet 2.5 mg PO .QOD 03/07/23 04/07/23 History sodium,potassium,mag sulfates 17.5 See Rx Instructions PO .COMPLEX 03/07/23 04/07/23 Rx gram-3.13 gram-1.6 gram oral soln #354 mL (Suprep Bowel Prep Kit) Allergies Allergy/AdvReac Type Severity Reaction Status Date / Time Sulfa (Sulfonamide Allergy Severe Hives Verified 03/07/23 10:34 Antibiotics) exemestane Allergy Verified 03/07/23 10:34 Exam Vital Signs (past 8 hours): - 04/07/23 12:36 Temperature 97.6 F Pulse Rate 75 Respiratory Rate 17 Blood Pressure 129/90 Pulse Oximetry 100 Oxygen Delivery Method Room Air Oxygen Delivery Method Room Air Const General: healthy appearing Assessment & Plan Assessment and plan (1) Family history of colon cancer: Status: Acute Plan We reviewed the risks and benefits of colonoscopy and she would like to proceed
--- NOTE | 2023-04-07 14:31 | PM.OP.COLON ---
Operative Date/Time/Diagnoses Date of procedure: 04/07/23 Time of procedure: 14:32 Pre-op diagnosis: Family history of colon cancer and personal history of colon polyps Post-op diagnosis: same Procedure & Clinicians Study performed: Colonoscopy Same procedure as scheduled: Yes Surgeon: Dewayne Akers Procedure Notes Procedure in detail: Surgeon: Dewayne Akers MD Anesthesia: Twan Mcdonald CRNA Procedure: The patient was brought to the endoscopy suite, placed in left lateral decubitus position. The patient was connected to monitoring devices. A time-out was performed. Sedation was administered. Once the patient was adequately sedated, a digital rectal exam was performed and was normal. The scope was then inserted and advanced to the cecum where the appendiceal orifice was identified and photographed. The scope was then slowly withdrawn over greater than 6 minutes. The mucosa was thoroughly inspected. No polyps or other lesions were found. The scope was retroflexed in the rectum. Internal hemorrhoids were noted. The scope was straightened and removed. The patient was awakened and brought to recovery. Scope withdrawal time: 7 minutes Sedation time: 19 minutes EBL: 0 Findings: Internal hemorrhoids Post-procedure Disposition: PACU
[2023-04-07 14:34] VITALS: BP 104/62; PULSE 72; RESP 19; TEMP 36.3; O2SAT 97
[2023-04-07 14:38] VITALS: BP 103/63; PULSE 92; O2SAT 96
[2023-04-07 14:43] VITALS: BP 107/74; PULSE 98; RESP 14; O2SAT 97
[2023-04-07 14:53] VITALS: BP 118/83; PULSE 85; RESP 14; O2SAT 99
== END 2023-04-07 15:37 | disposition home or self-care (01) ==
PROVIDERS: Family Provider Family Medicine; PCP Family Medicine; Referring Provider Surgery; Visit Provider Surgery
PROC: 0DJD8ZZ Inspection of Lower Intestinal Tract, Via Natural or Artificial Opening Endoscopic (ICD-10-PCS; CPT 45378; principal; 2023-04-07 13:45)
DX: Z12.11 Encounter for screening for malignant neoplasm of colon (principal); Z80.0 Family history of malignant neoplasm of digestive organs; Z86.010 Personal history of colon polyps; K64.8 Other hemorrhoids
CPT/HCPCS: G0105; J2704

== ENCOUNTER → 2025-05-25 11:39 | Outpatient (CLI) | payer MEDICARE, SELFPAY | LOC: LAB 11:40 | PROVIDERS: Family Provider Family Medicine; PCP Family Medicine; Visit Provider Physician Assistant Medical | DX: R30.0 Dysuria (principal) | CPT/HCPCS: 87077; 87086 ==